=== PATIENT | male | born 1970 | race African-American/Black ===

== ENCOUNTER 2019-03-28 20:02 | Inpatient (IN) ==
[2019-03-28 22:19] LABS: Basophils % 0.3 % (0.0-0.8); Eosinophils % 0.4 % (0.00-10.9); Hematocrit 37.4 VOL% (42.0-52.0); Hemoglobin 12.2 GM/DL (14.0-18.0); Immature Granulocytes % 0.3 %; Immature Granulocytes Absolute 0.02 #; Lymphocytes % 12.4 % (21.2-54.2); Mean Corpuscular HGB Conc 32.6 GM/DL (32-36); Mean Corpuscular Volume 87.4 FL (87-102); Mean Platelet Volume 11.4 FL (9.6-12.0); Monocytes % 6.8 % (1.7-12.7); Neutrophils % 79.8 % (38.7-73.9); Platelet Count 217 T/CUMM (130-400); Red Blood Count 4.28 MC/CUMM (3.8-5.5)
[2019-03-28 22:23] LABS: Alanine Aminotransferase 51 U/L (16-61); Albumin 3.4 G/DL (3.4-5.0); Alkaline Phosphatase 84 U/L (45-117); Aspartate Amino Transferase 40 U/L (0-37); Blood Urea Nitrogen 11 MG/DL (7-18); Calcium 8.4 MG/DL (8.5-10.1); Glucose 168 MG/DL (74-106); Osmolality,Calculated 277.7 MOS/KG (273-304); Total Protein 6.5 G/DL (6.4-8.3)
[2019-03-28] MEDS ORDERED: SODIUM CHLORIDE 0.9% 1,000 ML IV SCH (23:45)
[2019-03-28] MEDS ORDERED: MORPHINE 4 MG/1 ML VIAL IV PRN (23:46)
[2019-03-28] MEDS ORDERED: BISACODYL 5 MG TABLET PO PRN (23:46)
[2019-03-28] MEDS ORDERED: ONDANSETRON 4 MG/2 ML VIAL IV PRN (23:46)
[2019-03-28] MEDS ORDERED: diphenhydrAMINE CAP 25 MG CAPSULE PO PRN (23:46)
[2019-03-28 23:54] LABS: Albumin 3.2 G/DL (3.4-5.0); Bilirubin,Direct 0.55 MG/DL (0.0-0.20); Bilirubin,Indirect 1.4 MG/DL (0.0-1.0); Bilirubin,Total 1.9 MG/DL (0.2-1.0); Total Protein 6.3 G/DL (6.4-8.3)
[2019-03-29 00:14] LABS: Barbiturates Screen,Urine Negative (Negative); Benzodiazepines Screen,Urine Negative (Negative); Cannabinoid Screen,Urine Positive (Negative); Opiate Screen,Urine Negative (Negative); Phencyclidine Screen,Urine Negative (Negative)
[2019-03-29 00:23] LABS: Risk Ratio 1.58; VLDL CHOLESTEROL 22.6 MG/DL
[2019-03-29 00:39] LABS: Hepatitis B Core IgM Quant 0.23 Index; Hepatitis B Surface Ag Quant 0.11 Index; Hepatitis B Surface Ag Result Negative (Negative); Hepatitis C Virus Ab Quant 0.12 Index; Hepatitis C Virus Ab Result Negative (Negative)
[2019-03-29] MEDS: FUROSEMIDE 20 MG/2 ML VIAL IV SCH ×3 (02:57→17:02)
[2019-03-29] MEDS: LORazepam 2 MG/1 ML VIAL IV PRN (02:57)
[2019-03-29] MEDS: hydrALAZINE 20 MG/1 ML VIAL IV PRN ×2 (02:58→11:28)
[2019-03-29] MEDS: NICOTINE 21 MG/24 HR PATCH TRANSDERM PRN (02:58)
[2019-03-29 04:05] LABS: Hematocrit 33.3 VOL% (42.0-52.0)
[2019-03-29 07:18] LABS: Hematocrit 33.9 VOL% (42.0-52.0); Hemoglobin 11.1 GM/DL (14.0-18.0)
[2019-03-29 07:37] LABS: Troponin I 0.077 NG/ML (0.00-0.045)
[2019-03-29] MEDS ORDERED: ALBUTEROL/IPRATROPIUM 3 ML NEB RESP TX PRN (08:41)
[2019-03-29] MEDS ORDERED: amLODIPine 5 MG TABLET PO SCH (09:00)
[2019-03-29] MEDS: LEVOFLOXACIN INJ 750 MG in PREMIX 1 EACH IV SCH (10:15)
[2019-03-29] MEDS ORDERED: ONDANSETRON 4 MG/2 ML VIAL IV ONE (10:33)
[2019-03-29 11:08] LABS: Hemoglobin 12.7 GM/DL (14.0-18.0)
[2019-03-29] MEDS ORDERED: DEXTROSE 50% 25 GM/50 ML SYRINGE IV PRN (11:46)
[2019-03-29] MEDS ORDERED: GLUCAGON 1 MG VIAL IM PRN ×2 (11:46→12:19)
[2019-03-29] MEDS ORDERED: DEXTROSE 50% 25 GM/50 ML VIAL IV PRN (12:19)
[2019-03-29] MEDS: cefTRIAXone 1,000 MG in SYRINGE 1 EACH IV SCH (12:30)
[2019-03-29 12:31] LABS: HIV Antigen/Antibody Result Nonreactive (Nonreactive)
[2019-03-29] MEDS: methylPREDNISolone SOD SUC 40 MG/1 ML VIAL IV SCH (12:31)
[2019-03-29 16:09] LABS: Hematocrit 38.4 VOL% (42.0-52.0); Hemoglobin 12.6 GM/DL (14.0-18.0)
[2019-03-29 16:29] LABS: Troponin I 0.073 NG/ML (0.00-0.045)
[2019-03-29] MEDS: INSULIN LISPRO 100 UNIT/ML SUBCUT SCH ×2 (17:51→21:43)
[2019-03-29 20:06] LABS: Hematocrit 40.5 VOL% (42.0-52.0); Hemoglobin 13.5 GM/DL (14.0-18.0)
[2019-03-29 20:38] LABS: Troponin I 0.055 NG/ML (0.00-0.045)
[2019-03-29] MEDS: LISINOPRIL 5 MG TABLET PO SCH (21:41)
[2019-03-29] MEDS: CARVEDILOL 3.125 MG TABLET PO SCH (21:42)
[2019-03-30] MEDS: NICOTINE 21 MG/24 HR PATCH TRANSDERM PRN (01:07)
[2019-03-30] MEDS: methylPREDNISolone SOD SUC 40 MG/1 ML VIAL IV SCH ×2 (01:27→14:27)
[2019-03-30] MEDS ORDERED: LORazepam 2 MG/1 ML VIAL ONE ×2 (03:44→20:47)
[2019-03-30] MEDS: LORazepam 2 MG/1 ML VIAL IV PRN ×2 (03:53→20:57)
[2019-03-30 05:30] LABS: Basophils % 0.2 % (0.0-0.8); Hematocrit 38.7 VOL% (42.0-52.0); Hemoglobin 12.7 GM/DL (14.0-18.0); Immature Granulocytes % 0.4 %; Immature Granulocytes Absolute 0.03 #; Lymphocytes # 0.5 10*3/uL (1.4-4.0); Lymphocytes % 6.1 % (21.2-54.2); Mean Corpuscular HGB Conc 32.8 GM/DL (32-36); Mean Platelet Volume 11.4 FL (9.6-12.0); Monocytes % 2.4 % (1.7-12.7); Neutrophils % 90.9 % (38.7-73.9); Platelet Count 202 T/CUMM (130-400); Red Blood Count 4.45 MC/CUMM (3.8-5.5); Red Cell Distribution Width 12.9 % (9.3-17.3); White Blood Count 8.4 T/CUMM (4-12)
[2019-03-30 05:59] LABS: Calcium 8.3 MG/DL (8.5-10.1); Osmolality,Calculated 277.1 MOS/KG (273-304)
[2019-03-30 06:05] LABS: Lymphocytes 3 % (20-55); Segmented Neutrophils 93 % (50-85); Total Cells Counted 100
[2019-03-30 06:06] LABS: Microcytosis 1+
[2019-03-30 06:07] LABS: Ovalocytes Slight; Platelet Estimate Normal
[2019-03-30 06:20] LABS: % Iron Saturation 7.1 % (18-50); Ferritin 109.2 ng/ml (26-388)
[2019-03-30] MEDS ORDERED: FUROSEMIDE 40 MG/4 ML VIAL IV ONE (07:01)
[2019-03-30] MEDS ORDERED: MAGNESIUM SULF RIDER 4 GM in PREMIX 1 EACH IV PRN (09:16)
[2019-03-30] MEDS ORDERED: MAGNESIUM SULF RIDER 2 GM in PREMIX 1 EACH IV PRN (09:16)
[2019-03-30] MEDS: INSULIN LISPRO 100 UNIT/ML SUBCUT SCH ×4 (09:21→20:56)
[2019-03-30] MEDS: LISINOPRIL 5 MG TABLET PO SCH ×2 (09:22→20:57)
[2019-03-30] MEDS: CARVEDILOL 3.125 MG TABLET PO SCH ×2 (09:22→17:13)
[2019-03-30] MEDS: LEVOFLOXACIN INJ 750 MG in PREMIX 1 EACH IV SCH (09:22)
[2019-03-30 11:21] LABS: Apearance,Urine CLEAR (Clear); Bilirubin,Urine Negative (Negative); Blood, Urine Negative (Negative); Glucose,Urine (UA) >=500 mg/dL (Negative); Ketones,Urine 5 mg/dL (Negative); Nitrite,Urine Negative (Negative); Protein,Urine Negative; RBC,Urine 1 /HPF (0-4); Urine Color Straw (Yellow); Urine Specific Gravity 1.007 (1.001-1.035); Urine Urobilinogen < 2.0 EU/DL (0.2-1.0); WBC,Urine <1 /HPF (0-6)
[2019-03-30 12:13] LABS: Albumin 2.6 G/DL (3.4-5.0); Bilirubin,Direct 0.49 MG/DL (0.0-0.20); Bilirubin,Indirect 0.9 MG/DL (0.0-1.0); Bilirubin,Total 1.4 MG/DL (0.2-1.0); Total Protein 5.9 G/DL (6.4-8.3)
[2019-03-30] MEDS ORDERED: cefTRIAXone 1,000 MG in SODIUM CHLORIDE 0.9% 100 ML IV SCH (13:00)
[2019-03-30] MEDS: ASPIRIN EC 81 MG TABLET PO SCH (14:27)
[2019-03-30] MEDS: cefTRIAXone 1,000 MG in SYRINGE 1 EACH IV SCH (15:06)
[2019-03-31] MEDS: methylPREDNISolone SOD SUC 40 MG/1 ML VIAL IV SCH ×3 (00:51→21:28)
[2019-03-31] MEDS: NICOTINE 21 MG/24 HR PATCH TRANSDERM PRN (00:51)
[2019-03-31] MEDS: NIFEdipine 10 MG CAPSULE PO PRN ×3 (05:20→16:23)
[2019-03-31 05:53] LABS: Hemoglobin 13.1 GM/DL (14.0-18.0); Immature Granulocytes % 0.3 %; Immature Granulocytes Absolute 0.03 #; Lymphocytes # 0.7 10*3/uL (1.4-4.0); Lymphocytes % 6.7 % (21.2-54.2); Mean Corpuscular HGB Conc 32.8 GM/DL (32-36); Mean Corpuscular Volume 86.8 FL (87-102); Mean Platelet Volume 11.3 FL (9.6-12.0); Monocytes % 2.7 % (1.7-12.7); Neutrophils % 90.3 % (38.7-73.9); Platelet Count 233 T/CUMM (130-400); Red Blood Count 4.61 MC/CUMM (3.8-5.5); Red Cell Distribution Width 13.1 % (9.3-17.3); White Blood Count 10.8 T/CUMM (4-12)
[2019-03-31 06:19] LABS: Calcium 8.3 MG/DL (8.5-10.1); Osmolality,Calculated 292.7 MOS/KG (273-304)
[2019-03-31] MEDS ORDERED: hydrALAZINE 20 MG/1 ML VIAL ONE (06:49)
[2019-03-31] MEDS ORDERED: INSULIN LISPRO 100 UNIT/ML ONE (08:19)
[2019-03-31] MEDS: INSULIN LISPRO 100 UNIT/ML SUBCUT SCH ×4 (08:23→21:29)
[2019-03-31] MEDS: LISINOPRIL 5 MG TABLET PO SCH ×2 (08:24→21:29)
[2019-03-31] MEDS: LEVOFLOXACIN INJ 750 MG in PREMIX 1 EACH IV SCH (08:24)
[2019-03-31] MEDS: glipiZIDE 10 MG TABLET PO SCH ×2 (08:24→16:13)
[2019-03-31] MEDS: ASPIRIN EC 81 MG TABLET PO SCH (08:24)
[2019-03-31] MEDS: CARVEDILOL 3.125 MG TABLET PO SCH (08:24)
[2019-03-31 09:00] LABS: Albumin 2.8 G/DL (3.4-5.0); Bilirubin,Direct 0.26 MG/DL (0.0-0.20); Bilirubin,Indirect 0.5 MG/DL (0.0-1.0); Bilirubin,Total 0.8 MG/DL (0.2-1.0); Total Protein 6.3 G/DL (6.4-8.3)
[2019-03-31] MEDS: cefTRIAXone 1,000 MG in SYRINGE 1 EACH IV SCH (11:35)
[2019-03-31] MEDS ORDERED: LORazepam 2 MG/1 ML VIAL ONE ×3 (13:14→21:13)
[2019-03-31] MEDS: LORazepam 2 MG/1 ML VIAL IV PRN ×3 (13:20→21:30)
[2019-03-31] MEDS: CARVEDILOL 6.25 MG TABLET PO SCH ×2 (14:00→16:13)
[2019-04-01] MEDS: NIFEdipine 10 MG CAPSULE PO PRN ×2 (04:24→08:06)
[2019-04-01] MEDS: LORazepam 2 MG/1 ML VIAL IV PRN (04:25)
[2019-04-01 05:41] LABS: Calcium 8.3 MG/DL (8.5-10.1)
[2019-04-01 05:48] LABS: Albumin 2.6 G/DL (3.4-5.0); Bilirubin,Direct 0.14 MG/DL (0.0-0.20); Bilirubin,Indirect 0.9 MG/DL (0.0-1.0); Total Protein 5.6 G/DL (6.4-8.3)
[2019-04-01] MEDS: methylPREDNISolone SOD SUC 40 MG/1 ML VIAL IV SCH (08:05)
[2019-04-01] MEDS: INSULIN LISPRO 100 UNIT/ML SUBCUT SCH ×4 (08:05→21:31)
[2019-04-01] MEDS: glipiZIDE 10 MG TABLET PO SCH ×2 (08:06→17:04)
[2019-04-01] MEDS ORDERED: LORazepam 1 MG TABLET PO PRN (08:06)
[2019-04-01] MEDS: ASPIRIN EC 81 MG TABLET PO SCH (08:06)
[2019-04-01] MEDS: CARVEDILOL 6.25 MG TABLET PO SCH (08:06)
[2019-04-01] MEDS: LISINOPRIL 5 MG TABLET PO SCH (08:06)
[2019-04-01] MEDS: LEVOFLOXACIN INJ 750 MG in PREMIX 1 EACH IV SCH (08:07)
[2019-04-01] MEDS ORDERED: LEVOFLOXACIN 750 MG TABLET PO SCH (08:30)
[2019-04-01] MEDS ORDERED: predniSONE 20 MG TABLET PO SCH (09:00)
[2019-04-01] MEDS: predniSONE 10 MG TABLET PO SCH (10:40)
[2019-04-01] MEDS: cefTRIAXone 1,000 MG in SYRINGE 1 EACH IV SCH (11:02)
[2019-04-01] MEDS: LISINOPRIL 20 MG TABLET PO SCH (11:02)
[2019-04-01] MEDS: CARVEDILOL 12.5 MG TABLET PO SCH (17:04)
[2019-04-02] MEDS: CARVEDILOL 12.5 MG TABLET PO SCH (08:58)
[2019-04-02] MEDS: INSULIN LISPRO 100 UNIT/ML SUBCUT SCH ×2 (08:59→15:40)
[2019-04-02] MEDS: predniSONE 10 MG TABLET PO SCH (08:59)
[2019-04-02] MEDS: glipiZIDE 10 MG TABLET PO SCH (08:59)
[2019-04-02] MEDS: LISINOPRIL 20 MG TABLET PO SCH (08:59)
[2019-04-02] MEDS: ASPIRIN EC 81 MG TABLET PO SCH (08:59)
[2019-04-02 12:08] VITALS: BP 142/108
== END 2019-04-02 14:30 | disposition home or self-care (01) | DRG 292 ==
LOC: N.ED 20:02 → N.EDINP 23:53 → SUATTDRO 23:53 → N.2E 03-29 00:15 → N.ICU 03-29 00:19 → N.2E 04-01 11:27
PROVIDERS: ADMIT Internal Medicine; ATTEND Internal Medicine

== ENCOUNTER 2019-09-12 12:24 | Inpatient (IN) ==
[2019-09-12 13:42] LABS: Basophils % 0.2 % (0.0-0.8); Eosinophils % 0.4 % (0.00-10.9); Hematocrit 36.7 VOL% (42.0-52.0); Hemoglobin 11.9 GM/DL (14.0-18.0); Immature Granulocytes % 0.4 %; Immature Granulocytes Absolute 0.04 #; Lymphocytes % 10.8 % (21.2-54.2); Mean Corpuscular HGB Conc 32.4 GM/DL (32-36); Mean Corpuscular Volume 84.2 FL (87-102); Mean Platelet Volume 11.8 FL (9.6-12.0); Monocytes % 6.8 % (1.7-12.7); Neutrophils % 81.4 % (38.7-73.9); Platelet Count 296 T/CUMM (130-400); Red Blood Count 4.36 MC/CUMM (3.8-5.5); Red Cell Distribution Width 16.1 % (9.3-17.3); White Blood Count 9.2 T/CUMM (4-12)
[2019-09-12 14:00] LABS: Alanine Aminotransferase 32 U/L (16-61); Albumin 2.5 G/DL (3.4-5.0); Alkaline Phosphatase 121 U/L (45-117); Aspartate Amino Transferase 32 U/L (0-37); Blood Urea Nitrogen 15 MG/DL (7-18); Calcium 9.1 MG/DL (8.5-10.1); Estimated Glom Filtration Rate 68 ML/MIN; Glucose 331 MG/DL (74-106); Total Protein 7.4 G/DL (6.4-8.3)
[2019-09-12] MEDS ORDERED: INSULIN REGULAR 100 UNIT/ML IV ONE (15:18)
[2019-09-12] MEDS ORDERED: INSULIN REGULAR 100 UNIT/ML ONE (15:22)
[2019-09-12] MEDS ORDERED: SODIUM CHLORIDE 0.9% 1,000 ML IV STA (15:26)
[2019-09-12] MEDS ORDERED: GLUCAGON 1 MG VIAL IM PRN (15:29)
[2019-09-12] MEDS ORDERED: DEXTROSE 10% 25 GM/250 ML BAG IV PRN (15:29)
[2019-09-12] MEDS ORDERED: ONDANSETRON 4 MG/2 ML VIAL IV PRN (15:29)
[2019-09-12] MEDS ORDERED: VANCOMYCIN 1,000 MG VIAL ONE (16:10)
[2019-09-12] MEDS ORDERED: MORPHINE 4 MG/1 ML VIAL IV PRN (16:20)
[2019-09-12] MEDS ORDERED: LORazepam 2 MG/1 ML VIAL IV PRN (16:20)
[2019-09-12] MEDS ORDERED: VANCOMYCIN INJ 1,000 MG in SODIUM CHLORIDE 0.9% 250 ML IV SCH (17:00)
[2019-09-12] MEDS ORDERED: CLINDAMYCIN INJ 900 MG in PREMIX 1 EACH IV ONE ×2 (18:01→18:30)
[2019-09-12] MEDS: SODIUM CHLORIDE 0.9% 1,000 ML IV SCH ×2 (18:42→23:46)
[2019-09-12] MEDS: GABAPENTIN 300 MG CAPSULE PO SCH (20:51)
[2019-09-12] MEDS: INSULIN REGULAR 100 UNIT/ML SUBCUT SCH (20:53)
[2019-09-12] MEDS ORDERED: SODIUM CHLORIDE 0.9% 1,000 ML IV ONE (21:00)
[2019-09-12] MEDS ORDERED: ENOXAPARIN 40 MG/0.4 ML SYRINGE SUBCUT SCH (21:00)
[2019-09-13] MEDS: SODIUM CHLORIDE 0.9% 1,000 ML IV SCH ×3 (02:36→23:38)
[2019-09-13 06:02] LABS: Basophils % 0.3 % (0.0-0.8); Eosinophils # 0.1 10*3/uL (0.0-0.87); Eosinophils % 0.8 % (0.00-10.9); Hematocrit 35.2 VOL% (42.0-52.0); Hemoglobin 11.2 GM/DL (14.0-18.0); Immature Granulocytes % 0.3 %; Immature Granulocytes Absolute 0.02 #; Lymphocytes # 1.4 10*3/uL (1.4-4.0); Lymphocytes % 20.5 % (21.2-54.2); Mean Corpuscular HGB Conc 31.8 GM/DL (32-36); Mean Corpuscular Volume 86.7 FL (87-102); Mean Platelet Volume 11.6 FL (9.6-12.0); Neutrophils % 68.1 % (38.7-73.9); Platelet Count 284 T/CUMM (130-400); Red Blood Count 4.06 MC/CUMM (3.8-5.5); Red Cell Distribution Width 16.4 % (9.3-17.3); White Blood Count 6.6 T/CUMM (4-12)
[2019-09-13] MEDS ORDERED: LIDOCAINE 1% 20 ML VIAL ONE (06:22)
[2019-09-13] MEDS ORDERED: CLINDAMYCIN INJ 900 MG in PREMIX 1 EACH IV ONE (06:30)
[2019-09-13 06:31] LABS: Albumin 2.2 G/DL (3.4-5.0); Bilirubin,Total 1.7 MG/DL (0.2-1.0); Calcium 8.1 MG/DL (8.5-10.1); Osmolality,Calculated 279.5 MOS/KG (273-304); Total Protein 6.7 G/DL (6.4-8.3)
[2019-09-13] MEDS ORDERED: CLINDAMYCIN INJ 50 ML IV ONE (07:28)
[2019-09-13] MEDS ORDERED: MIDAZOLAM 2 MG/2 ML VIAL ONE (07:50)
[2019-09-13] MEDS ORDERED: ONDANSETRON 4 MG/2 ML VIAL ONE (07:50)
[2019-09-13] MEDS ORDERED: fentaNYL 100 MCG/2 ML VIAL ONE (07:50)
[2019-09-13] MEDS: INSULIN REGULAR 100 UNIT/ML SUBCUT SCH ×4 (09:24→21:06)
[2019-09-13] MEDS: PANTOPRAZOLE 40 MG TABLET PO SCH (09:25)
[2019-09-13] MEDS: FOLIC ACID 1 MG TABLET PO SCH (09:25)
[2019-09-13] MEDS: GABAPENTIN 300 MG CAPSULE PO SCH ×3 (09:25→21:06)
[2019-09-13] MEDS: MULTIVITAMIN (CENTRUM) TABLET PO SCH (09:25)
[2019-09-13] MEDS: THIAMINE 100 MG TABLET PO SCH (09:25)
[2019-09-13] MEDS: VANCOMYCIN INJ 1,000 MG in SODIUM CHLORIDE 0.9% 250 ML IV SCH ×2 (09:32→21:04)
[2019-09-13] MEDS ORDERED: NICOTINE 14 MG/24 HR PATCH TRANSDERM PRN (18:18)
[2019-09-13] MEDS: LACTOBACILLUS ACIDOPHILUS/BULGARICUS CHEW TABLET PO SCH (21:11)
[2019-09-14 04:44] LABS: Basophils % 0.4 % (0.0-0.8); Eosinophils # 0.1 10*3/uL (0.0-0.87); Eosinophils % 1.4 % (0.00-10.9); Hematocrit 31.7 VOL% (42.0-52.0); Hemoglobin 9.9 GM/DL (14.0-18.0); Immature Granulocytes % 0.4 %; Immature Granulocytes Absolute 0.02 #; Lymphocytes # 1.1 10*3/uL (1.4-4.0); Lymphocytes % 22.8 % (21.2-54.2); Mean Corpuscular HGB Conc 31.2 GM/DL (32-36); Mean Corpuscular Volume 87.6 FL (87-102); Mean Platelet Volume 11.9 FL (9.6-12.0); Monocytes % 9.2 % (1.7-12.7); Neutrophils % 65.8 % (38.7-73.9); Platelet Count 275 T/CUMM (130-400); Red Blood Count 3.62 MC/CUMM (3.8-5.5); Red Cell Distribution Width 16.4 % (9.3-17.3)
[2019-09-14 05:12] LABS: Osmolality,Calculated 288.4 MOS/KG (273-304); Thyroid Stimulating Hormone 1.04 uIU/ml (0.358-3.74)
[2019-09-14] MEDS: GABAPENTIN 300 MG CAPSULE PO SCH ×3 (09:54→21:20)
[2019-09-14] MEDS: FOLIC ACID 1 MG TABLET PO SCH (09:54)
[2019-09-14] MEDS: THIAMINE 100 MG TABLET PO SCH (09:54)
[2019-09-14] MEDS: MULTIVITAMIN (CENTRUM) TABLET PO SCH (09:54)
[2019-09-14] MEDS: PANTOPRAZOLE 40 MG TABLET PO SCH (09:54)
[2019-09-14] MEDS: INSULIN REGULAR 100 UNIT/ML SUBCUT SCH ×4 (09:55→21:21)
[2019-09-14] MEDS: VANCOMYCIN INJ 1,000 MG in SODIUM CHLORIDE 0.9% 250 ML IV SCH (09:56)
[2019-09-14] MEDS: SODIUM CHLORIDE 0.9% 1,000 ML IV SCH (11:19)
[2019-09-14] MEDS: INSULIN GLARGINE 100 UNIT/ML SUBCUT SCH (11:40)
[2019-09-14] MEDS: AMOXICILLIN/CLAV 875 MG TABLET PO SCH ×2 (11:43→21:20)
[2019-09-14] MEDS: LACTOBACILLUS ACIDOPHILUS/BULGARICUS CHEW TABLET PO SCH ×2 (12:02→21:20)
[2019-09-15] MEDS: AMOXICILLIN/CLAV 875 MG TABLET PO SCH (08:45)
[2019-09-15] MEDS: MULTIVITAMIN (CENTRUM) TABLET PO SCH (08:45)
[2019-09-15] MEDS: FOLIC ACID 1 MG TABLET PO SCH (08:45)
[2019-09-15] MEDS: PANTOPRAZOLE 40 MG TABLET PO SCH (08:45)
[2019-09-15] MEDS: THIAMINE 100 MG TABLET PO SCH (08:46)
[2019-09-15] MEDS: INSULIN REGULAR 100 UNIT/ML SUBCUT SCH ×2 (08:55→13:32)
[2019-09-15] MEDS: GABAPENTIN 300 MG CAPSULE PO SCH (08:55)
[2019-09-15] MEDS: INSULIN GLARGINE 100 UNIT/ML SUBCUT SCH (10:15)
[2019-09-15] MEDS: LACTOBACILLUS ACIDOPHILUS/BULGARICUS CHEW TABLET PO SCH (10:16)
[2019-09-15] MEDS ORDERED: amLODIPine 10 MG TABLET PO ONE (10:42)
[2019-09-15 13:45] VITALS: BP 145/85
== END 2019-09-15 15:20 | disposition home or self-care (01) | DRG 623 ==
LOC: N.ED 12:24 → SUATTDRO 15:29 → N.5E 15:29
PROVIDERS: ADMIT Internal Medicine; ATTEND Internal Medicine

== ENCOUNTER 2020-01-10 14:55 | Inpatient (IN) ==
[2020-01-10 15:33] LABS: Basophils % 0.5 % (0.0-0.8); Eosinophils % 0.3 % (0.00-10.9); Hematocrit 37.3 VOL% (42.0-52.0); Hemoglobin 11.4 GM/DL (14.0-18.0); Immature Granulocytes % 0.6 %; Immature Granulocytes Absolute 0.04 #; Lymphocytes # 1.5 10*3/uL (1.4-4.0); Lymphocytes % 22.8 % (21.2-54.2); Mean Corpuscular HGB Conc 30.6 GM/DL (32-36); Mean Corpuscular Volume 74.7 FL (87-102); Monocytes % 10.7 % (1.7-12.7); Neutrophils % 65.1 % (38.7-73.9); Platelet Count 198 T/CUMM (130-400); Red Blood Count 4.99 MC/CUMM (3.8-5.5); Red Cell Distribution Width 20.5 % (9.3-17.3); White Blood Count 6.6 T/CUMM (4-12)
[2020-01-10] MEDS ORDERED: ONDANSETRON 4 MG/2 ML VIAL IV STA (15:41)
[2020-01-10] MEDS ORDERED: PIPERACILLIN/TAZOBACTAM 3,375 MG in SODIUM CHLORIDE 0.9% 100 ML IV STA (15:41)
[2020-01-10] MEDS ORDERED: SODIUM CHLORIDE 0.9% 1,000 ML IV STA ×2 (15:41→16:21)
[2020-01-10] MEDS ORDERED: VANCOMYCIN 1,000 MG VIAL ONE (15:49)
[2020-01-10 15:54] LABS: Lymphocytes 21 % (20-55); Segmented Neutrophils 70 % (50-85); Total Cells Counted 100
[2020-01-10 15:55] LABS: Anisocytosis 1+; Hypochromasia 1+; Platelet Estimate Adequate
[2020-01-10] MEDS ORDERED: ceFAZolin 1,000 MG in SYRINGE 1 EACH IV ONE (15:55)
[2020-01-10 15:56] LABS: Elliptocytes Few; Polychromasia Few; Target Cells Few
[2020-01-10] MEDS ORDERED: fentaNYL 100 MCG/2 ML VIAL ONE (16:02)
[2020-01-10 16:07] LABS: Amylase 45 U/L (25-115); Troponin I 0.038 NG/ML (0.00-0.045)
[2020-01-10] MEDS: VANCOMYCIN INJ 1,000 MG in SODIUM CHLORIDE 0.9% 250 ML IV SCH ×2 (16:07→16:59)
[2020-01-10] MEDS ORDERED: fentaNYL 100 MCG/2 ML VIAL IV STA (16:07)
[2020-01-10] MEDS ORDERED: INSULIN REGULAR 100 UNIT/ML IV ONE (16:21)
[2020-01-10] MEDS ORDERED: CALCIUM CARBONATE CHEW 500 MG TABLET PO PRN (16:38)
[2020-01-10] MEDS ORDERED: LACTULOSE 20 GM/30 ML UDCUP PO PRN (16:38)
[2020-01-10] MEDS ORDERED: DOCUSATE SODIUM 100 MG CAPSULE PO PRN (16:38)
[2020-01-10] MEDS ORDERED: SIMETHICONE CHEW 125 MG TABLET PO PRN (16:38)
[2020-01-10] MEDS ORDERED: MORPHINE 4 MG/1 ML VIAL IV PRN (16:38)
[2020-01-10] MEDS ORDERED: BISACODYL 5 MG TABLET PO PRN (16:38)
[2020-01-10] MEDS ORDERED: hydrALAZINE 20 MG/1 ML VIAL IV PRN (16:38)
[2020-01-10] MEDS ORDERED: guaiFENesin/DM ER 600-30 MG TABLET PO PRN (16:38)
[2020-01-10] MEDS ORDERED: ALUMINUM/MAGNES/SIMETH MAX STR 30 ML UDCUP PO PRN (16:38)
[2020-01-10] MEDS ORDERED: NICOTINE 21 MG/24 HR PATCH TRANSDERM PRN (16:38)
[2020-01-10] MEDS ORDERED: ACETAMINOPHEN 325 MG TABLET PO PRN (16:38)
[2020-01-10] MEDS ORDERED: GLUCAGON 1 MG VIAL IM PRN (16:38)
[2020-01-10] MEDS ORDERED: ZALEPLON 5 MG CAPSULE PO PRN (16:38)
[2020-01-10] MEDS ORDERED: diphenhydrAMINE CAP 25 MG CAPSULE PO PRN (16:38)
[2020-01-10] MEDS ORDERED: DEXTROSE 10% 250 ML BAG IV PRN (16:38)
[2020-01-10] MEDS ORDERED: ONDANSETRON 4 MG/2 ML VIAL IV PRN (16:38)
[2020-01-10 16:39] LABS: Apearance,Urine CLEAR (Clear); Bilirubin,Urine Negative (Negative); Blood, Urine Moderate mg/dL (Negative); Glucose,Urine (UA) >=500 mg/dL (Negative); Ketones,Urine 5 mg/dL (Negative); Nitrite,Urine Negative (Negative); Protein,Urine 100 MG/DL; RBC,Urine 10 /HPF (0-4); Urine Color Straw (Yellow); Urine Specific Gravity 1.023 (1.001-1.035); Urine Urobilinogen < 2.0 EU/DL (0.2-1.0); WBC,Urine <1 /HPF (0-6)
[2020-01-10] MEDS ORDERED: INSULIN REGULAR 100 UNIT/ML SUBCUT STA (16:56)
[2020-01-10] MEDS ORDERED: SODIUM CHLORIDE 0.9% 1,000 ML IV SCH (17:00)
[2020-01-10] MEDS ORDERED: chlordiazePOXIDE 10 MG CAPSULE PO PRN (17:11)
[2020-01-10 17:23] LABS: Calcium 8.9 MG/DL (8.5-10.1); Osmolality,Calculated 288.8 MOS/KG (273-304)
[2020-01-10 17:50] LABS: Barbiturates Screen,Urine Negative (Negative); Benzodiazepines Screen,Urine Negative (Negative); Cannabinoid Screen,Urine Negative (Negative); Opiate Screen,Urine Negative (Negative); Phencyclidine Screen,Urine Negative (Negative)
[2020-01-10] MEDS: AMITRIPTYLINE 10 MG TABLET PO SCH ×2 (19:06→23:43)
[2020-01-10] MEDS: ISOSORBIDE DINITRATE 20 MG TABLET PO SCH (21:23)
[2020-01-10] MEDS: SACUBITRIL/VALSARTAN 49-51 MG TABLET PO SCH (21:23)
[2020-01-10] MEDS: THIAMINE 100 MG TABLET PO SCH (21:24)
[2020-01-10] MEDS: MAGNESIUM OXIDE 400 MG TABLET PO SCH (21:24)
[2020-01-10] MEDS: hydrALAZINE 25 MG TABLET PO SCH (21:24)
[2020-01-10] MEDS: FOLIC ACID 1 MG TABLET PO SCH (21:24)
[2020-01-10] MEDS: GABAPENTIN 300 MG CAPSULE PO SCH (21:24)
[2020-01-10] MEDS: INSULIN GLARGINE 100 UNIT/ML SUBCUT SCH (21:24)
[2020-01-10] MEDS: INSULIN REGULAR 100 UNIT/ML SUBCUT SCH (22:12)
[2020-01-10] MEDS: PIPERACILLIN/TAZOBACTAM 3,375 MG in SODIUM CHLORIDE 0.9% 100 ML IV SCH (23:39)
[2020-01-11] MEDS: VANCOMYCIN INJ 1,000 MG in SODIUM CHLORIDE 0.9% 250 ML IV SCH ×2 (04:15→19:51)
[2020-01-11] MEDS: AMITRIPTYLINE 10 MG TABLET PO SCH ×4 (05:29→23:17)
[2020-01-11 06:19] LABS: Basophils % 0.8 % (0.0-0.8); Eosinophils # 0.1 10*3/uL (0.0-0.87); Hematocrit 33.2 VOL% (42.0-52.0); Immature Granulocytes % 0.6 %; Immature Granulocytes Absolute 0.03 #; Lymphocytes # 1.6 10*3/uL (1.4-4.0); Lymphocytes % 32.4 % (21.2-54.2); Mean Corpuscular HGB Conc 30.1 GM/DL (32-36); Mean Corpuscular Volume 75.3 FL (87-102); Neutrophils % 54.2 % (38.7-73.9); Platelet Count 198 T/CUMM (130-400); Red Blood Count 4.41 MC/CUMM (3.8-5.5); Red Cell Distribution Width 20.3 % (9.3-17.3); White Blood Count 4.9 T/CUMM (4-12)
[2020-01-11] MEDS ORDERED: ceFAZolin 1,000 MG in SYRINGE 1 EACH IV ONE (06:30)
[2020-01-11 06:37] LABS: Hypochromasia 1+; Ovalocytes Slight; Platelet Estimate Adequate
[2020-01-11 06:40] LABS: Albumin 1.9 G/DL (3.4-5.0); Bilirubin,Total 1.2 MG/DL (0.2-1.0); Calcium 8.4 MG/DL (8.5-10.1); Osmolality,Calculated 279.1 MOS/KG (273-304); Total Protein 6.4 G/DL (6.4-8.3)
[2020-01-11] MEDS ORDERED: LIDOCAINE 1% 20 ML VIAL ONE (06:43)
[2020-01-11] MEDS ORDERED: BUPIVACAINE MPF 0.25% 30 ML VIAL ONE (06:43)
[2020-01-11] MEDS ORDERED: KETAMINE 500 MG/10 ML VIAL ONE (07:42)
[2020-01-11] MEDS ORDERED: fentaNYL 100 MCG/2 ML VIAL ONE (07:42)
[2020-01-11] MEDS ORDERED: MIDAZOLAM 2 MG/2 ML VIAL ONE (07:43)
[2020-01-11] MEDS ORDERED: LABETALOL 20 MG/4 ML SYRINGE IV ONE (08:04)
[2020-01-11] MEDS: MULTIVITAMIN (BEROCCA) TABLET PO SCH (09:53)
[2020-01-11] MEDS: MAGNESIUM OXIDE 400 MG TABLET PO SCH ×2 (09:53→20:58)
[2020-01-11] MEDS: THIAMINE 100 MG TABLET PO SCH ×2 (09:54→20:58)
[2020-01-11] MEDS: SACUBITRIL/VALSARTAN 49-51 MG TABLET PO SCH ×2 (09:54→20:59)
[2020-01-11] MEDS: ZINC SULFATE 220 MG CAPSULE PO SCH (09:54)
[2020-01-11] MEDS: GABAPENTIN 300 MG CAPSULE PO SCH ×3 (09:54→20:58)
[2020-01-11] MEDS: ISOSORBIDE DINITRATE 20 MG TABLET PO SCH ×3 (09:54→20:59)
[2020-01-11] MEDS: carvediloL 6.25 MG TABLET PO SCH ×2 (09:54→18:25)
[2020-01-11] MEDS: FUROSEMIDE 40 MG/4 ML VIAL IV SCH ×2 (09:56→18:25)
[2020-01-11] MEDS: hydrALAZINE 25 MG TABLET PO SCH ×3 (09:56→20:58)
[2020-01-11] MEDS: ASPIRIN EC 81 MG TABLET PO SCH (09:56)
[2020-01-11] MEDS: INSULIN REGULAR 100 UNIT/ML SUBCUT SCH ×4 (09:56→22:04)
[2020-01-11] MEDS: INSULIN GLARGINE 100 UNIT/ML SUBCUT SCH ×2 (09:57→22:28)
[2020-01-11] MEDS: PIPERACILLIN/TAZOBACTAM 3,375 MG in SODIUM CHLORIDE 0.9% 100 ML IV SCH ×2 (10:01→20:57)
[2020-01-11] MEDS: FOLIC ACID 1 MG TABLET PO SCH (22:04)
[2020-01-11] MEDS: DOCUSATE SODIUM 100 MG CAPSULE PO SCH (22:04)
[2020-01-12] MEDS: PIPERACILLIN/TAZOBACTAM 3,375 MG in SODIUM CHLORIDE 0.9% 100 ML IV SCH ×2 (03:17→12:41)
[2020-01-12] MEDS: AMITRIPTYLINE 10 MG TABLET PO SCH ×2 (05:57→12:41)
[2020-01-12 06:00] LABS: Basophils # 0.1 10*3/uL (0.0-0.2); Basophils % 0.9 % (0.0-0.8); Eosinophils # 0.1 10*3/uL (0.0-0.87); Hemoglobin 10.9 GM/DL (14.0-18.0); Immature Granulocytes % 0.3 %; Immature Granulocytes Absolute 0.02 #; Lymphocytes # 2.1 10*3/uL (1.4-4.0); Mean Corpuscular HGB Conc 30.3 GM/DL (32-36); Mean Corpuscular Volume 75.2 FL (87-102); Monocytes % 11.8 % (1.7-12.7); Platelet Count 221 T/CUMM (130-400); Red Blood Count 4.79 MC/CUMM (3.8-5.5); Red Cell Distribution Width 21.2 % (9.3-17.3); White Blood Count 5.9 T/CUMM (4-12)
[2020-01-12 06:16] LABS: Alanine Aminotransferase 17 U/L (16-61); Albumin 1.9 G/DL (3.4-5.0); Alkaline Phosphatase 123 U/L (45-117); Aspartate Amino Transferase 24 U/L (0-37); Bilirubin,Total < 0.39 MG/DL (0.2-1.0); Blood Urea Nitrogen 20 MG/DL (7-18); Calcium 8.4 MG/DL (8.5-10.1); Estimated Glom Filtration Rate 87 ML/MIN; Glucose 130 MG/DL (74-106); Osmolality,Calculated 270.4 MOS/KG (273-304); Total Protein 6.5 G/DL (6.4-8.3)
[2020-01-12 06:57] LABS: Eosinophils 1 % (0-10); Hypochromasia 1+; Lymphocytes 39 % (20-55); Platelet Estimate Adequate; Segmented Neutrophils 48 % (50-85); Total Cells Counted 100
[2020-01-12] MEDS: VANCOMYCIN INJ 1,000 MG in SODIUM CHLORIDE 0.9% 250 ML IV SCH (07:27)
[2020-01-12] MEDS: FUROSEMIDE 40 MG/4 ML VIAL IV SCH (08:18)
[2020-01-12] MEDS: carvediloL 6.25 MG TABLET PO SCH (08:19)
[2020-01-12] MEDS: THIAMINE 100 MG TABLET PO SCH (08:19)
[2020-01-12] MEDS: ISOSORBIDE DINITRATE 20 MG TABLET PO SCH (08:19)
[2020-01-12] MEDS: hydrALAZINE 25 MG TABLET PO SCH (08:19)
[2020-01-12] MEDS: MAGNESIUM OXIDE 400 MG TABLET PO SCH (08:19)
[2020-01-12] MEDS: ZINC SULFATE 220 MG CAPSULE PO SCH (08:19)
[2020-01-12] MEDS: DOCUSATE SODIUM 100 MG CAPSULE PO SCH (08:19)
[2020-01-12] MEDS: GABAPENTIN 300 MG CAPSULE PO SCH (08:20)
[2020-01-12] MEDS: ASPIRIN EC 81 MG TABLET PO SCH (08:20)
[2020-01-12] MEDS: SACUBITRIL/VALSARTAN 49-51 MG TABLET PO SCH (08:20)
[2020-01-12] MEDS: INSULIN REGULAR 100 UNIT/ML SUBCUT SCH ×2 (08:20→12:39)
[2020-01-12] MEDS: MULTIVITAMIN (BEROCCA) TABLET PO SCH (08:20)
[2020-01-12] MEDS ORDERED: POLYETHYLENE GLYCOL POWDER 17 GM PACK PO SCH (09:00)
[2020-01-12] MEDS: INSULIN GLARGINE 100 UNIT/ML SUBCUT SCH (09:57)
[2020-01-12] MEDS ORDERED: SODIUM HYPOCHLORITE 0.25% IRRIG 473 ML BOTTLE TOP SCH (10:00)
[2020-01-12 11:38] VITALS: BP 134/90
[2020-01-12] MEDS ORDERED: FUROSEMIDE 80 MG TABLET PO SCH (16:00)
== END 2020-01-12 13:57 | disposition home health service (06) | DRG 623 ==
LOC: EDUNIT# → EDBD → N.ED 14:55 → SUATTDRO 16:38 → N.EDINP 16:38 → N.3E 16:56
PROVIDERS: ADMIT Internal Medicine Nephrology; ATTEND Internal Medicine

== ENCOUNTER 2020-02-11 01:27 | Observation (INO) ==
[2020-02-11] MEDS ORDERED: INSULIN REGULAR 100 UNIT/ML IV STA ×2 (01:59→03:54)
[2020-02-11] MEDS ORDERED: FUROSEMIDE 100 MG/10 ML VIAL IV STA (01:59)
[2020-02-11] MEDS ORDERED: FUROSEMIDE 40 MG/4 ML VIAL IV STA (01:59)
[2020-02-11] MEDS ORDERED: methylPREDNISolone SOD SUC 125 MG/2 ML VIAL IV STA (01:59)
[2020-02-11] MEDS ORDERED: MORPHINE 4 MG/1 ML VIAL IV STA (01:59)
[2020-02-11] MEDS ORDERED: ALBUTEROL/IPRATROPIUM 3 ML NEB RESP TX STA (01:59)
[2020-02-11] MEDS ORDERED: ONDANSETRON 4 MG/2 ML VIAL IV STA (01:59)
[2020-02-11] MEDS ORDERED: NITROGLYCERIN 2% OINT 1 INCH/GM PACK TOP STA (01:59)
[2020-02-11 02:09] LABS: Basophils % 0.6 % (0.0-0.8); Eosinophils % 0.2 % (0.00-10.9); Hematocrit 35.1 VOL% (42.0-52.0); Hemoglobin 10.4 GM/DL (14.0-18.0); Immature Granulocytes % 0.4 %; Immature Granulocytes Absolute 0.02 #; Lymphocytes # 1.5 10*3/uL (1.4-4.0); Lymphocytes % 28.5 % (21.2-54.2); Mean Corpuscular HGB Conc 29.6 GM/DL (32-36); Mean Corpuscular Volume 76.8 FL (87-102); Mean Platelet Volume 10.5 FL (9.6-12.0); Monocytes % 5.9 % (1.7-12.7); Neutrophils % 64.4 % (38.7-73.9); Platelet Count 264 T/CUMM (130-400); Red Blood Count 4.57 MC/CUMM (3.8-5.5); Red Cell Distribution Width 20.3 % (9.3-17.3); White Blood Count 5.4 T/CUMM (4-12)
[2020-02-11 02:15] LABS: INR 0.9; PT Patient Result 9.6 SECS (9.6-12.2)
[2020-02-11] MEDS ORDERED: hydrALAZINE 20 MG/1 ML VIAL IV STA (02:15)
[2020-02-11 02:23] LABS: Alanine Aminotransferase 77 U/L (16-61); Albumin 2.1 G/DL (3.4-5.0); Alkaline Phosphatase 298 U/L (45-117); Amylase 94 U/L (25-115); Aspartate Amino Transferase 93 U/L (0-37); Bilirubin,Total < 0.39 MG/DL (0.2-1.0); Blood Urea Nitrogen 14 MG/DL (7-18); Calcium 8.4 MG/DL (8.5-10.1); Estimated Glom Filtration Rate 67 ML/MIN; Osmolality,Calculated 293.2 MOS/KG (273-304); Total Protein 6.5 G/DL (6.4-8.3)
[2020-02-11 02:24] LABS: Troponin I 0.078 NG/ML (0.00-0.045)
[2020-02-11 02:30] LABS: Glucose 781 MG/DL (74-106)
[2020-02-11] MEDS ORDERED: SODIUM CHLORIDE 0.9% 500 ML IV STA (02:32)
[2020-02-11 03:50] LABS: Barbiturates Screen,Urine Negative (Negative); Benzodiazepines Screen,Urine Negative (Negative); Cannabinoid Screen,Urine Negative (Negative); Opiate Screen,Urine Negative (Negative); Phencyclidine Screen,Urine Negative (Negative)
[2020-02-11 03:54] LABS: Apearance,Urine CLEAR (Clear); Bilirubin,Urine Negative (Negative); Blood, Urine Negative (Negative); Glucose,Urine (UA) >=500 mg/dL (Negative); Ketones,Urine Negative (Negative); Nitrite,Urine Negative (Negative); Protein,Urine 100 MG/DL; RBC,Urine 5 /HPF (0-4); Squamous Epithelial Cell,Urine Occasional /HPF (0-10); Urine Color Straw (Yellow); Urine Specific Gravity 1.026 (1.001-1.035); Urine Urobilinogen < 2.0 EU/DL (0.2-1.0); WBC,Urine <1 /HPF (0-6)
[2020-02-11] MEDS ORDERED: ACETAMINOPHEN 325 MG TABLET PO PRN (04:26)
[2020-02-11] MEDS ORDERED: hydrALAZINE 20 MG/1 ML VIAL IV PRN (04:26)
[2020-02-11] MEDS ORDERED: GLUCAGON 1 MG VIAL IM PRN (04:26)
[2020-02-11] MEDS ORDERED: DEXTROSE 50% 25 GM/50 ML SYRINGE IV PRN (04:26)
[2020-02-11] MEDS ORDERED: DOCUSATE SODIUM 100 MG CAPSULE PO PRN (04:26)
[2020-02-11] MEDS ORDERED: NICOTINE 21 MG/24 HR PATCH TRANSDERM PRN (04:26)
[2020-02-11] MEDS ORDERED: ONDANSETRON 4 MG/2 ML VIAL IV PRN (04:26)
[2020-02-11] MEDS: AMITRIPTYLINE 10 MG TABLET PO SCH ×3 (08:21→18:36)
[2020-02-11] MEDS: FUROSEMIDE 80 MG TABLET PO SCH ×2 (08:21→16:06)
[2020-02-11] MEDS: carvediloL 6.25 MG TABLET PO SCH ×2 (08:21→16:06)
[2020-02-11] MEDS: GABAPENTIN 300 MG CAPSULE PO SCH ×3 (08:21→21:44)
[2020-02-11] MEDS: ASPIRIN EC 81 MG TABLET PO SCH (08:21)
[2020-02-11] MEDS: hydrALAZINE 25 MG TABLET PO SCH ×3 (08:21→21:44)
[2020-02-11] MEDS: MAGNESIUM OXIDE 400 MG TABLET PO SCH ×2 (08:21→21:44)
[2020-02-11] MEDS: SACUBITRIL/VALSARTAN 49-51 MG TABLET PO SCH ×2 (08:21→21:43)
[2020-02-11] MEDS: INSULIN REGULAR 100 UNIT/ML SUBCUT SCH ×4 (08:22→21:43)
[2020-02-11] MEDS: INSULIN NPH/REGULAR 70/30 100 UNIT/ML SUBCUT SCH ×2 (08:23→16:06)
[2020-02-11] MEDS: ENOXAPARIN 40 MG/0.4 ML SYRINGE SUBCUT SCH (08:26)
[2020-02-12] MEDS: AMITRIPTYLINE 10 MG TABLET PO SCH ×3 (00:03→13:10)
[2020-02-12 06:04] LABS: Basophils % 0.2 % (0.0-0.8); Eosinophils % 0.3 % (0.00-10.9); Hematocrit 35.3 VOL% (42.0-52.0); Hemoglobin 10.9 GM/DL (14.0-18.0); Immature Granulocytes % 0.3 %; Immature Granulocytes Absolute 0.03 #; Lymphocytes # 2.5 10*3/uL (1.4-4.0); Lymphocytes % 26.8 % (21.2-54.2); Mean Corpuscular HGB Conc 30.9 GM/DL (32-36); Mean Corpuscular Volume 74.5 FL (87-102); Mean Platelet Volume 11.4 FL (9.6-12.0); Neutrophils % 67.4 % (38.7-73.9); Platelet Count 296 T/CUMM (130-400); Red Blood Count 4.74 MC/CUMM (3.8-5.5); Red Cell Distribution Width 19.7 % (9.3-17.3); White Blood Count 9.3 T/CUMM (4-12)
[2020-02-12 06:21] LABS: Albumin 1.7 G/DL (3.4-5.0); Bilirubin,Total 0.6 MG/DL (0.2-1.0); Calcium 8.2 MG/DL (8.5-10.1); Osmolality,Calculated 276.7 MOS/KG (273-304); Total Protein 5.5 G/DL (6.4-8.3)
[2020-02-12 06:26] LABS: Hypochromasia 1+; Platelet Estimate Adequate
[2020-02-12] MEDS: INSULIN NPH/REGULAR 70/30 100 UNIT/ML SUBCUT SCH (08:44)
[2020-02-12] MEDS: INSULIN REGULAR 100 UNIT/ML SUBCUT SCH ×2 (08:45→12:55)
[2020-02-12] MEDS: ASPIRIN EC 81 MG TABLET PO SCH (08:46)
[2020-02-12] MEDS: carvediloL 6.25 MG TABLET PO SCH (08:46)
[2020-02-12] MEDS: GABAPENTIN 300 MG CAPSULE PO SCH (08:46)
[2020-02-12] MEDS: MAGNESIUM OXIDE 400 MG TABLET PO SCH (08:46)
[2020-02-12] MEDS: FUROSEMIDE 80 MG TABLET PO SCH (08:46)
[2020-02-12] MEDS: ENOXAPARIN 40 MG/0.4 ML SYRINGE SUBCUT SCH (08:46)
[2020-02-12] MEDS: hydrALAZINE 25 MG TABLET PO SCH (08:47)
[2020-02-12 11:47] VITALS: BP 112/89
[2020-02-12] MEDS: SACUBITRIL/VALSARTAN 49-51 MG TABLET PO SCH (12:55)
== END 2020-02-12 14:45 | disposition home or self-care (01) ==
LOC: EDBD → EDUNIT# → N.ED 01:27 → N.EDINP 01:27 → SUATTDRO 03:36 → N.2E 03:56
PROVIDERS: ADMIT Family Medicine; ATTEND Internal Medicine

== ENCOUNTER 2020-03-05 23:53 | Observation (INO) ==
[2020-03-06 00:11] LABS: Basophils % 0.4 % (0.0-0.8); Eosinophils # 0.1 10*3/uL (0.0-0.87); Eosinophils % 1.3 % (0.00-10.9); Hematocrit 34.1 VOL% (42.0-52.0); Hemoglobin 10.1 GM/DL (14.0-18.0); Immature Granulocytes % 0.2 %; Immature Granulocytes Absolute 0.01 #; Lymphocytes # 1.7 10*3/uL (1.4-4.0); Lymphocytes % 32.5 % (21.2-54.2); Mean Corpuscular HGB Conc 29.6 GM/DL (32-36); Mean Corpuscular Volume 76.8 FL (87-102); Mean Platelet Volume 10.7 FL (9.6-12.0); NRBC # 0.02 10*3/uL; Neutrophils % 55.6 % (38.7-73.9); Platelet Count 167 T/CUMM (130-400); Red Blood Count 4.44 MC/CUMM (3.8-5.5); Red Cell Distribution Width 20.7 % (9.3-17.3); White Blood Count 5.3 T/CUMM (4-12)
[2020-03-06] MEDS ORDERED: ONDANSETRON 4 MG/2 ML VIAL IV ONE (00:15)
[2020-03-06] MEDS ORDERED: FUROSEMIDE 40 MG/4 ML VIAL IV STA (00:15)
[2020-03-06] MEDS ORDERED: MORPHINE 4 MG/1 ML VIAL IV STA (00:15)
[2020-03-06] MEDS ORDERED: ONDANSETRON 4 MG/2 ML VIAL ONE (00:16)
[2020-03-06] MEDS ORDERED: MORPHINE 4 MG/1 ML VIAL ONE (00:17)
[2020-03-06 00:32] LABS: Albumin 2.5 G/DL (3.4-5.0); Bilirubin,Total 0.6 MG/DL (0.2-1.0); Calcium 8.8 MG/DL (8.5-10.1); Osmolality,Calculated 282.1 MOS/KG (273-304)
[2020-03-06 01:22] LABS: INR 1.1; PT Patient Result 11.3 SECS (9.8-11.9)
[2020-03-06] MEDS ORDERED: hydrALAZINE 20 MG/1 ML VIAL IV STA (02:30)
[2020-03-06] MEDS ORDERED: ENOXAPARIN 80 MG/0.8 ML SYRINGE SUBCUT ONE (02:30)
[2020-03-06] MEDS ORDERED: hydrALAZINE 20 MG/1 ML VIAL ONE (02:30)
[2020-03-06] MEDS ORDERED: ENOXAPARIN 80 MG/0.8 ML SYRINGE SUBCUT STA (02:32)
[2020-03-06 02:50] LABS: Ferritin 36.3 ng/ml (26-388)
[2020-03-06] MEDS ORDERED: NICOTINE 21 MG/24 HR PATCH TRANSDERM PRN (03:37)
[2020-03-06] MEDS ORDERED: diphenhydrAMINE CAP 25 MG CAPSULE PO PRN (03:37)
[2020-03-06] MEDS ORDERED: ACETAMINOPHEN 325 MG TABLET PO PRN (03:37)
[2020-03-06] MEDS ORDERED: ONDANSETRON 4 MG/2 ML VIAL IV PRN (03:37)
[2020-03-06] MEDS ORDERED: MORPHINE 4 MG/1 ML VIAL IV PRN (03:37)
[2020-03-06] MEDS ORDERED: guaiFENesin/DM ER 600-30 MG TABLET PO PRN (03:37)
[2020-03-06] MEDS ORDERED: hydrALAZINE 20 MG/1 ML VIAL IV PRN (03:37)
[2020-03-06] MEDS ORDERED: ALUMINUM/MAGNES/SIMETH MAX STR 30 ML UDCUP PO PRN (03:37)
[2020-03-06] MEDS ORDERED: GLUCAGON 1 MG VIAL IM PRN (03:37)
[2020-03-06] MEDS ORDERED: DEXTROSE 10% 250 ML BAG IV PRN (03:45)
[2020-03-06 04:07] LABS: Risk Ratio 2.41
[2020-03-06] MEDS ORDERED: INSULIN REGULAR 100 UNIT/ML SUBCUT SCH (06:00)
[2020-03-06 07:48] LABS: Basophils % 0.6 % (0.0-0.8); Eosinophils # 0.1 10*3/uL (0.0-0.87); Eosinophils % 1.2 % (0.00-10.9); Hematocrit 32.2 VOL% (42.0-52.0); Hemoglobin 9.5 GM/DL (14.0-18.0); Immature Granulocytes % 0.4 %; Immature Granulocytes Absolute 0.02 #; Lymphocytes # 1.6 10*3/uL (1.4-4.0); Lymphocytes % 31.5 % (21.2-54.2); Mean Corpuscular HGB Conc 29.5 GM/DL (32-36); Monocytes % 11.3 % (1.7-12.7); NRBC # 0.02 10*3/uL; Platelet Count 229 T/CUMM (130-400); Red Blood Count 4.13 MC/CUMM (3.8-5.5); Red Cell Distribution Width 20.7 % (9.3-17.3); White Blood Count 5.2 T/CUMM (4-12)
[2020-03-06 08:21] LABS: Albumin 2.5 G/DL (3.4-5.0); Bilirubin,Total 0.7 MG/DL (0.2-1.0); Calcium 8.3 MG/DL (8.5-10.1); Total Protein 6.7 G/DL (6.4-8.3)
[2020-03-06] MEDS ORDERED: amLODIPine 5 MG TABLET PO SCH (09:00)
[2020-03-06] MEDS ORDERED: metOLazone 5 MG TABLET PO SCH (09:00)
[2020-03-06] MEDS: GABAPENTIN 300 MG CAPSULE PO SCH ×3 (09:37→21:20)
[2020-03-06] MEDS: SACUBITRIL/VALSARTAN 49-51 MG TABLET PO SCH ×2 (09:38→21:21)
[2020-03-06] MEDS: hydrALAZINE 25 MG TABLET PO SCH ×3 (09:38→21:20)
[2020-03-06] MEDS: ISOSORBIDE DINITRATE 20 MG TABLET PO SCH ×3 (09:38→21:20)
[2020-03-06] MEDS: MAGNESIUM OXIDE 400 MG TABLET PO SCH ×2 (09:38→21:20)
[2020-03-06] MEDS: carvediloL 6.25 MG TABLET PO SCH ×2 (09:38→18:26)
[2020-03-06] MEDS: INSULIN REGULAR 100 UNIT/ML SUBCUT SCH ×4 (09:41→21:21)
[2020-03-06] MEDS: INSULIN GLARGINE 100 UNIT/ML SUBCUT SCH ×2 (09:41→22:49)
[2020-03-06] MEDS: FUROSEMIDE 40 MG/4 ML VIAL IV SCH ×2 (09:42→18:27)
[2020-03-06] MEDS: HEPARIN 5,000 UNIT/1 ML VIAL SUBCUT SCH ×2 (09:42→18:26)
[2020-03-06 12:46] LABS: Barbiturates Screen,Urine Negative (Negative); Benzodiazepines Screen,Urine Negative (Negative); Cannabinoid Screen,Urine Negative (Negative); Opiate Screen,Urine Negative (Negative); Phencyclidine Screen,Urine Negative (Negative)
[2020-03-06] MEDS ORDERED: INSULIN NPH/REGULAR 70/30 100 UNIT/ML SUBCUT SCH (21:00)
[2020-03-06] MEDS ORDERED: metFORMIN 500 MG TABLET PO SCH (21:00)
[2020-03-06] MEDS ORDERED: AMITRIPTYLINE 10 MG TABLET PO SCH (21:00)
[2020-03-06] MEDS: THIAMINE 100 MG TABLET PO SCH (21:20)
[2020-03-07] MEDS: HEPARIN 5,000 UNIT/1 ML VIAL SUBCUT SCH ×2 (00:44→09:34)
[2020-03-07 05:43] LABS: Basophils % 0.5 % (0.0-0.8); Eosinophils # 0.1 10*3/uL (0.0-0.87); Eosinophils % 1.6 % (0.00-10.9); Hematocrit 30.3 VOL% (42.0-52.0); Hemoglobin 9.2 GM/DL (14.0-18.0); Immature Granulocytes % 0.2 %; Immature Granulocytes Absolute 0.01 #; Lymphocytes # 1.3 10*3/uL (1.4-4.0); Lymphocytes % 31.5 % (21.2-54.2); Mean Corpuscular HGB Conc 30.4 GM/DL (32-36); Mean Corpuscular Volume 75.4 FL (87-102); Mean Platelet Volume 10.8 FL (9.6-12.0); Monocytes % 10.3 % (1.7-12.7); NRBC # 0.02 10*3/uL; Neutrophils % 55.9 % (38.7-73.9); Platelet Count 218 T/CUMM (130-400); Red Blood Count 4.02 MC/CUMM (3.8-5.5); Red Cell Distribution Width 20.3 % (9.3-17.3); White Blood Count 4.3 T/CUMM (4-12)
[2020-03-07 06:12] LABS: Albumin 1.9 G/DL (3.4-5.0); Bilirubin,Total 0.9 MG/DL (0.2-1.0); Total Protein 5.6 G/DL (6.4-8.3)
[2020-03-07] MEDS ORDERED: MULTIVITAMIN (BEROCCA) TABLET PO SCH (09:00)
[2020-03-07 09:17] VITALS: BP 98/45
[2020-03-07] MEDS: SACUBITRIL/VALSARTAN 49-51 MG TABLET PO SCH (09:32)
[2020-03-07] MEDS: ISOSORBIDE DINITRATE 20 MG TABLET PO SCH (09:32)
[2020-03-07] MEDS: GABAPENTIN 300 MG CAPSULE PO SCH (09:32)
[2020-03-07] MEDS: THIAMINE 100 MG TABLET PO SCH (09:33)
[2020-03-07] MEDS: carvediloL 6.25 MG TABLET PO SCH (09:33)
[2020-03-07] MEDS: hydrALAZINE 25 MG TABLET PO SCH (09:34)
[2020-03-07] MEDS: FUROSEMIDE 40 MG/4 ML VIAL IV SCH (09:34)
[2020-03-07] MEDS: MAGNESIUM OXIDE 400 MG TABLET PO SCH (09:38)
[2020-03-07] MEDS: INSULIN REGULAR 100 UNIT/ML SUBCUT SCH (10:32)
[2020-03-07] MEDS: INSULIN GLARGINE 100 UNIT/ML SUBCUT SCH (10:32)
== END 2020-03-07 12:24 | disposition home or self-care (01) ==
LOC: N.ED 23:53 → N.EDINP 23:53 → SUATTDRO 03-06 03:37 → N.TELES 03-06 04:52
PROVIDERS: ADMIT Emergency Medicine; ATTEND Internal Medicine

== ENCOUNTER 2020-07-25 16:20 | Inpatient (IN) ==
[2020-07-25 16:58] LABS: Basophils % 0.2 % (0.0-0.8); Eosinophils % 0.5 % (0.00-10.9); Hematocrit 36.3 VOL% (42.0-52.0); Hemoglobin 10.7 GM/DL (14.0-18.0); Immature Granulocytes % 0.2 %; Immature Granulocytes Absolute 0.01 #; Lymphocytes # 0.7 10*3/uL (1.4-4.0); Lymphocytes % 18.2 % (21.2-54.2); Mean Corpuscular HGB Conc 29.5 GM/DL (32-36); Mean Corpuscular Volume 69.5 FL (87-102); Monocytes % 9.4 % (1.7-12.7); Neutrophils % 71.5 % (38.7-73.9); Platelet Count 276 T/CUMM (130-400); Red Blood Count 5.22 MC/CUMM (3.8-5.5); Red Cell Distribution Width 23.6 % (9.3-17.3); White Blood Count 4.1 T/CUMM (4-12)
[2020-07-25 17:24] LABS: Albumin 1.8 G/DL (3.4-5.0); Bilirubin,Total 1.4 MG/DL (0.2-1.0); Calcium 8.2 MG/DL (8.5-10.1); Osmolality,Calculated 287.1 MOS/KG (273-304); Total Protein 6.5 G/DL (6.4-8.3)
[2020-07-25 18:40] LABS: Apearance,Urine CLEAR (Clear); Bacteria,Urine Occasional /HPF (Few); Bilirubin,Urine Negative (Negative); Blood, Urine Small mg/dL (Negative); Glucose,Urine (UA) >=500 mg/dL (Negative); Hyaline Casts,Urine 5 /LPF (0-3); Ketones,Urine Negative (Negative); Mucus,Urine Occasional /LPF (Occasional); Nitrite,Urine Negative (Negative); Protein,Urine 100 MG/DL; RBC,Urine 3 /HPF (0-4); Squamous Epithelial Cell,Urine Occasional /HPF (0-10); Urine Color Amber (Yellow); Urine Specific Gravity 1.026 (1.001-1.035); WBC,Urine 2 /HPF (0-6)
[2020-07-25] MEDS ORDERED: ONDANSETRON 4 MG/2 ML VIAL IV PRN (18:54)
[2020-07-25] MEDS ORDERED: MAGNESIUM SULF RIDER 2 GM in PREMIX 1 EACH IV PRN (18:54)
[2020-07-25] MEDS ORDERED: MAGNESIUM SULF RIDER 4 GM in PREMIX 1 EACH IV PRN (18:54)
[2020-07-25] MEDS ORDERED: GLUCAGON 1 MG VIAL IM PRN (18:54)
[2020-07-25] MEDS ORDERED: DEXTROSE 50% 25 GM/50 ML VIAL IV PRN ×2 (18:54)
[2020-07-25] MEDS ORDERED: ACETAMINOPHEN 325 MG TABLET PO PRN (18:54)
[2020-07-25] MEDS ORDERED: POTASSIUM CHLORIDE 20 MEQ TABLET PO ONE (19:08)
[2020-07-25] MEDS: ENOXAPARIN 40 MG/0.4 ML SYRINGE SUBCUT SCH (22:09)
[2020-07-25] MEDS: FUROSEMIDE 40 MG/4 ML VIAL IV SCH (22:10)
[2020-07-25] MEDS: INSULIN REGULAR 100 UNIT/ML SUBCUT SCH (22:16)
[2020-07-26 05:50] LABS: Basophils % 0.2 % (0.0-0.8); Eosinophils % 0.8 % (0.00-10.9); Hematocrit 34.5 VOL% (42.0-52.0); Hemoglobin 10.3 GM/DL (14.0-18.0); Immature Granulocytes % 0.4 %; Immature Granulocytes Absolute 0.02 #; Lymphocytes # 1.2 10*3/uL (1.4-4.0); Lymphocytes % 22.4 % (21.2-54.2); Mean Corpuscular HGB Conc 29.9 GM/DL (32-36); Mean Corpuscular Volume 69.4 FL (87-102); Monocytes % 10.3 % (1.7-12.7); Neutrophils % 65.9 % (38.7-73.9); Platelet Count 245 T/CUMM (130-400); Red Blood Count 4.97 MC/CUMM (3.8-5.5); Red Cell Distribution Width 23.9 % (9.3-17.3); White Blood Count 5.3 T/CUMM (4-12)
[2020-07-26 06:04] LABS: Eosinophils 2 % (0-10); Lymphocytes 17 % (20-55); Platelet Estimate Adequate; Segmented Neutrophils 67 % (50-85); Total Cells Counted 100
[2020-07-26 06:05] LABS: Hypochromasia 1+; Ovalocytes Slight
[2020-07-26 06:13] LABS: Albumin 1.8 G/DL (3.4-5.0); Bilirubin,Total 2.4 MG/DL (0.2-1.0); Calcium 8.2 MG/DL (8.5-10.1); Total Protein 6.6 G/DL (6.4-8.3)
[2020-07-26] MEDS: INSULIN REGULAR 100 UNIT/ML SUBCUT SCH ×4 (08:04→21:31)
[2020-07-26] MEDS: FUROSEMIDE 40 MG/4 ML VIAL IV SCH ×2 (09:19→18:01)
[2020-07-26] MEDS: carvediloL 6.25 MG TABLET PO SCH ×2 (09:19→18:01)
[2020-07-26] MEDS: POTASSIUM CHLORIDE 20 MEQ TABLET PO PRN ×4 (09:19→18:02)
[2020-07-26] MEDS: PANTOPRAZOLE 40 MG TABLET PO SCH (09:19)
[2020-07-26] MEDS ORDERED: MAGNESIUM SULF RIDER 2 GM in PREMIX 1 EACH IV ONE (16:00)
[2020-07-26] MEDS ORDERED: metOLazone 5 MG TABLET PO ONE (16:00)
[2020-07-26 19:20] LABS: Barbiturates Screen,Urine Negative (Negative); Benzodiazepines Screen,Urine Negative (Negative); Cannabinoid Screen,Urine Negative (Negative); Opiate Screen,Urine Negative (Negative); Phencyclidine Screen,Urine Negative (Negative)
[2020-07-26] MEDS: BACITRACIN OINT 0.9 GM PACK TOP SCH (21:30)
[2020-07-27 05:19] LABS: Basophils % 0.3 % (0.0-0.8); Eosinophils # 0.1 10*3/uL (0.0-0.87); Eosinophils % 1.6 % (0.00-10.9); Hematocrit 34.2 VOL% (42.0-52.0); Hemoglobin 10.1 GM/DL (14.0-18.0); Immature Granulocytes % 0.3 %; Immature Granulocytes Absolute 0.01 #; Lymphocytes # 1.1 10*3/uL (1.4-4.0); Lymphocytes % 29.4 % (21.2-54.2); Mean Corpuscular HGB Conc 29.5 GM/DL (32-36); Mean Corpuscular Volume 69.1 FL (87-102); Monocytes % 10.6 % (1.7-12.7); Neutrophils % 57.8 % (38.7-73.9); Platelet Count 235 T/CUMM (130-400); Red Blood Count 4.95 MC/CUMM (3.8-5.5); Red Cell Distribution Width 23.9 % (9.3-17.3); White Blood Count 3.8 T/CUMM (4-12)
[2020-07-27 05:42] LABS: Hypochromasia 1+; Ovalocytes Slight; Platelet Estimate Adequate
[2020-07-27 05:50] LABS: Albumin 1.7 G/DL (3.4-5.0); Bilirubin,Direct 0.46 MG/DL (0.0-0.20); Bilirubin,Indirect 0.7 MG/DL (0.0-1.0); Bilirubin,Total 1.2 MG/DL (0.2-1.0); Calcium 8.2 MG/DL (8.5-10.1); Osmolality,Calculated 271.2 MOS/KG (273-304); Total Protein 6.4 G/DL (6.4-8.3)
[2020-07-27] MEDS: FUROSEMIDE 40 MG/4 ML VIAL IV SCH ×2 (09:50→18:07)
[2020-07-27] MEDS: POTASSIUM CHLORIDE 20 MEQ TABLET PO PRN (10:00)
[2020-07-27] MEDS: PANTOPRAZOLE 40 MG TABLET PO SCH (10:00)
[2020-07-27] MEDS: carvediloL 6.25 MG TABLET PO SCH (10:00)
[2020-07-27] MEDS: INSULIN REGULAR 100 UNIT/ML SUBCUT SCH ×4 (10:01→21:50)
[2020-07-27] MEDS: BACITRACIN OINT 0.9 GM PACK TOP SCH ×2 (10:02→21:50)
[2020-07-27] MEDS: METOPROLOL SUCCINATE XL 25 MG TABLET PO SCH (11:36)
[2020-07-27] MEDS: ENOXAPARIN 40 MG/0.4 ML SYRINGE SUBCUT SCH (21:49)
[2020-07-27] MEDS: ZALEPLON 5 MG CAPSULE PO PRN (21:49)
[2020-07-28 04:04] LABS: Basophils % 0.5 % (0.0-0.8); Eosinophils % 0.9 % (0.00-10.9); Hematocrit 33.6 VOL% (42.0-52.0); Hemoglobin 9.9 GM/DL (14.0-18.0); Immature Granulocytes % 0.2 %; Immature Granulocytes Absolute 0.01 #; Lymphocytes # 1.2 10*3/uL (1.4-4.0); Lymphocytes % 26.6 % (21.2-54.2); Mean Corpuscular HGB Conc 29.5 GM/DL (32-36); Mean Corpuscular Volume 69.3 FL (87-102); Monocytes % 10.1 % (1.7-12.7); NRBC # 0.02 10*3/uL; Neutrophils % 61.7 % (38.7-73.9); Platelet Count 273 T/CUMM (130-400); Red Blood Count 4.85 MC/CUMM (3.8-5.5); Red Cell Distribution Width 23.7 % (9.3-17.3); White Blood Count 4.4 T/CUMM (4-12)
[2020-07-28 04:38] LABS: Albumin 1.6 G/DL (3.4-5.0); Bilirubin,Direct 0.46 MG/DL (0.0-0.20); Bilirubin,Indirect 0.8 MG/DL (0.0-1.0); Bilirubin,Total 1.3 MG/DL (0.2-1.0); Calcium 7.9 MG/DL (8.5-10.1); Osmolality,Calculated 276.4 MOS/KG (273-304); Total Protein 5.7 G/DL (6.4-8.3)
[2020-07-28 04:44] LABS: Eosinophils 5 % (0-10); Hypochromasia 1+; Lymphocytes 22 % (20-55); Microcytosis Slight; Nucleated Red Blood Cells 1 (0-5); Ovalocytes Slight; Platelet Estimate Adequate; Segmented Neutrophils 65 % (50-85); Total Cells Counted 100
[2020-07-28] MEDS ORDERED: FUROSEMIDE 40 MG TABLET PO SCH (09:00)
[2020-07-28] MEDS ORDERED: LOSARTAN 25 MG TABLET PO SCH (09:00)
[2020-07-28] MEDS: INSULIN REGULAR 100 UNIT/ML SUBCUT SCH ×4 (09:49→21:31)
[2020-07-28] MEDS: BACITRACIN OINT 0.9 GM PACK TOP SCH ×2 (09:49→21:31)
[2020-07-28] MEDS: METOPROLOL SUCCINATE XL 25 MG TABLET PO SCH (09:49)
[2020-07-28] MEDS: PANTOPRAZOLE 40 MG TABLET PO SCH (09:49)
[2020-07-28] MEDS: FUROSEMIDE 40 MG/4 ML VIAL IV SCH ×2 (10:06→19:04)
[2020-07-28] MEDS: hydrALAZINE 10 MG TABLET PO SCH ×2 (17:31→21:31)
[2020-07-28] MEDS: ISOSORBIDE DINITRATE 10 MG TABLET PO SCH ×2 (17:31→21:31)
[2020-07-28] MEDS: ZALEPLON 5 MG CAPSULE PO PRN (21:31)
[2020-07-28] MEDS: ENOXAPARIN 40 MG/0.4 ML SYRINGE SUBCUT SCH (21:31)
[2020-07-29 04:18] LABS: Basophils % 0.6 % (0.0-0.8); Eosinophils # 0.1 10*3/uL (0.0-0.87); Hematocrit 34.5 VOL% (42.0-52.0); Hemoglobin 10.3 GM/DL (14.0-18.0); Immature Granulocytes % 0.4 %; Immature Granulocytes Absolute 0.02 #; Lymphocytes # 1.3 10*3/uL (1.4-4.0); Lymphocytes % 26.2 % (21.2-54.2); Mean Corpuscular HGB Conc 29.9 GM/DL (32-36); Mean Corpuscular Volume 67.6 FL (87-102); Monocytes % 11.1 % (1.7-12.7); Neutrophils % 60.7 % (38.7-73.9); Platelet Count 287 T/CUMM (130-400); Red Cell Distribution Width 23.7 % (9.3-17.3); White Blood Count 4.8 T/CUMM (4-12)
[2020-07-29 04:35] LABS: Albumin 1.6 G/DL (3.4-5.0); Bilirubin,Direct 0.41 MG/DL (0.0-0.20); Bilirubin,Indirect 0.4 MG/DL (0.0-1.0); Bilirubin,Total 0.8 MG/DL (0.2-1.0); Calcium 7.9 MG/DL (8.5-10.1); Osmolality,Calculated 278.2 MOS/KG (273-304); Total Protein 5.9 G/DL (6.4-8.3)
[2020-07-29 04:41] LABS: Hypochromasia 1+; Platelet Estimate Adequate
[2020-07-29] MEDS: INSULIN REGULAR 100 UNIT/ML SUBCUT SCH ×4 (08:55→20:43)
[2020-07-29] MEDS: hydrALAZINE 10 MG TABLET PO SCH ×3 (10:08→20:43)
[2020-07-29] MEDS: FUROSEMIDE 40 MG TABLET PO SCH ×2 (10:08→16:48)
[2020-07-29] MEDS: PANTOPRAZOLE 40 MG TABLET PO SCH (10:08)
[2020-07-29] MEDS: BACITRACIN OINT 0.9 GM PACK TOP SCH ×2 (10:08→20:43)
[2020-07-29] MEDS: ISOSORBIDE DINITRATE 10 MG TABLET PO SCH ×3 (10:08→20:42)
[2020-07-29] MEDS: METOPROLOL SUCCINATE XL 25 MG TABLET PO SCH ×2 (10:09→20:43)
[2020-07-29] MEDS: FUROSEMIDE 40 MG/4 ML VIAL IV SCH (10:10)
[2020-07-29] MEDS: ENOXAPARIN 40 MG/0.4 ML SYRINGE SUBCUT SCH (20:42)
[2020-07-29] MEDS: ZALEPLON 5 MG CAPSULE PO PRN (20:43)
[2020-07-30 08:20] LABS: Basophils % 0.5 % (0.0-0.8); Eosinophils # 0.1 10*3/uL (0.0-0.87); Eosinophils % 1.5 % (0.00-10.9); Hematocrit 37.2 VOL% (42.0-52.0); Hemoglobin 10.9 GM/DL (14.0-18.0); Immature Granulocytes % 0.2 %; Immature Granulocytes Absolute 0.01 #; Lymphocytes # 0.8 10*3/uL (1.4-4.0); Lymphocytes % 20.2 % (21.2-54.2); Mean Corpuscular HGB Conc 29.3 GM/DL (32-36); Mean Corpuscular Volume 68.6 FL (87-102); Monocytes % 8.3 % (1.7-12.7); Neutrophils % 69.3 % (38.7-73.9); Platelet Count 296 T/CUMM (130-400); Red Blood Count 5.42 MC/CUMM (3.8-5.5); Red Cell Distribution Width 24.1 % (9.3-17.3); White Blood Count 4.1 T/CUMM (4-12)
[2020-07-30 08:26] LABS: Albumin 1.8 G/DL (3.4-5.0); Bilirubin,Total 0.8 MG/DL (0.2-1.0); Calcium 8.3 MG/DL (8.5-10.1); Osmolality,Calculated 281.2 MOS/KG (273-304); Total Protein 6.5 G/DL (6.4-8.3)
[2020-07-30] MEDS: INSULIN REGULAR 100 UNIT/ML SUBCUT SCH ×4 (10:20→20:50)
[2020-07-30] MEDS: ISOSORBIDE DINITRATE 10 MG TABLET PO SCH ×3 (10:24→20:47)
[2020-07-30] MEDS: METOPROLOL SUCCINATE XL 25 MG TABLET PO SCH ×2 (10:24→20:47)
[2020-07-30] MEDS: PANTOPRAZOLE 40 MG TABLET PO SCH (10:25)
[2020-07-30] MEDS: hydrALAZINE 10 MG TABLET PO SCH ×3 (10:25→20:47)
[2020-07-30] MEDS: BACITRACIN OINT 0.9 GM PACK TOP SCH ×2 (10:25→20:47)
[2020-07-30] MEDS: FUROSEMIDE 40 MG TABLET PO SCH (10:28)
[2020-07-30] MEDS: FUROSEMIDE 40 MG/4 ML VIAL IV SCH ×3 (10:47→20:48)
[2020-07-30 11:45] LABS: Hypochromasia 2+; Platelet Estimate Adequate; Target Cells 1+
[2020-07-30] MEDS: ENOXAPARIN 40 MG/0.4 ML SYRINGE SUBCUT SCH (20:47)
[2020-07-30] MEDS: ZALEPLON 5 MG CAPSULE PO PRN (20:47)
[2020-07-31 06:27] LABS: Basophils % 0.5 % (0.0-0.8); Eosinophils % 0.9 % (0.00-10.9); Hematocrit 33.8 VOL% (42.0-52.0); Hemoglobin 10.2 GM/DL (14.0-18.0); Immature Granulocytes % 0.2 %; Immature Granulocytes Absolute 0.01 #; Lymphocytes # 0.9 10*3/uL (1.4-4.0); Lymphocytes % 22.3 % (21.2-54.2); Mean Corpuscular HGB Conc 30.2 GM/DL (32-36); Monocytes % 12.3 % (1.7-12.7); Neutrophils % 63.8 % (38.7-73.9); Platelet Count 268 T/CUMM (130-400); Red Blood Count 4.97 MC/CUMM (3.8-5.5); Red Cell Distribution Width 23.7 % (9.3-17.3); White Blood Count 4.2 T/CUMM (4-12)
[2020-07-31 06:47] LABS: Osmolality,Calculated 287.1 MOS/KG (273-304)
[2020-07-31] MEDS ORDERED: IRON SUCROSE 100 MG/5 ML VIAL IV ONE (07:08)
[2020-07-31] MEDS ORDERED: SODIUM CHLORIDE 0.9% 0 ML IV ONE (09:07)
[2020-07-31] MEDS: SPIRONOLACTONE 25 MG TABLET PO SCH (09:55)
[2020-07-31] MEDS: METOPROLOL SUCCINATE XL 25 MG TABLET PO SCH ×2 (09:55→20:31)
[2020-07-31] MEDS: hydrALAZINE 10 MG TABLET PO SCH ×3 (09:55→20:31)
[2020-07-31] MEDS: BACITRACIN OINT 0.9 GM PACK TOP SCH ×2 (09:55→20:31)
[2020-07-31] MEDS: ISOSORBIDE DINITRATE 10 MG TABLET PO SCH ×3 (09:55→20:31)
[2020-07-31] MEDS: PANTOPRAZOLE 40 MG TABLET PO SCH (09:56)
[2020-07-31] MEDS: INSULIN REGULAR 100 UNIT/ML SUBCUT SCH ×4 (09:56→20:30)
[2020-07-31] MEDS: FUROSEMIDE 40 MG/4 ML VIAL IV SCH ×3 (09:58→20:32)
[2020-07-31 11:29] LABS: Target Cells 1+
[2020-07-31 11:30] LABS: Elliptocytes Few; Hypochromasia 4+; Microcytosis 2+; Ovalocytes 2+; Poikilocytosis 2+; Schistocytes Few
[2020-07-31 11:31] LABS: Platelet Estimate Normal
[2020-07-31] MEDS: ENOXAPARIN 40 MG/0.4 ML SYRINGE SUBCUT SCH (20:30)
[2020-07-31] MEDS: SPIRONOLACTONE 50 MG TABLET PO SCH (20:31)
[2020-07-31] MEDS: ZALEPLON 5 MG CAPSULE PO PRN (20:31)
[2020-08-01 05:40] LABS: Basophils % 0.8 % (0.0-0.8); Eosinophils # 0.1 10*3/uL (0.0-0.87); Eosinophils % 1.7 % (0.00-10.9); Hematocrit 33.5 VOL% (42.0-52.0); Immature Granulocytes % 0.3 %; Immature Granulocytes Absolute 0.01 #; Lymphocytes # 0.8 10*3/uL (1.4-4.0); Lymphocytes % 21.5 % (21.2-54.2); Mean Corpuscular HGB Conc 29.9 GM/DL (32-36); Mean Corpuscular Volume 68.6 FL (87-102); Monocytes % 10.3 % (1.7-12.7); Neutrophils % 65.4 % (38.7-73.9); Platelet Count 248 T/CUMM (130-400); Red Blood Count 4.88 MC/CUMM (3.8-5.5); Red Cell Distribution Width 23.7 % (9.3-17.3); White Blood Count 3.6 T/CUMM (4-12)
[2020-08-01 06:03] LABS: Osmolality,Calculated 293.8 MOS/KG (273-304)
[2020-08-01 06:09] LABS: Eosinophils 1 % (0-10); Lymphocytes 22 % (20-55); Platelet Estimate Adequate; Segmented Neutrophils 71 % (50-85); Total Cells Counted 100
[2020-08-01 06:10] LABS: Hypochromasia 1+; Microcytosis 1+; Target Cells Few
[2020-08-01 08:18] LABS: INR 1.1; PT Patient Result 11.7 SECS (9.8-11.9)
[2020-08-01] MEDS: INSULIN REGULAR 100 UNIT/ML SUBCUT SCH ×4 (09:04→21:51)
[2020-08-01] MEDS: BACITRACIN OINT 0.9 GM PACK TOP SCH ×2 (09:05→21:47)
[2020-08-01] MEDS: FUROSEMIDE 40 MG/4 ML VIAL IV SCH ×3 (09:10→21:48)
[2020-08-01] MEDS: hydrALAZINE 10 MG TABLET PO SCH ×3 (11:38→21:47)
[2020-08-01] MEDS: ISOSORBIDE DINITRATE 10 MG TABLET PO SCH ×3 (11:39→21:48)
[2020-08-01] MEDS: SPIRONOLACTONE 25 MG TABLET PO SCH (11:42)
[2020-08-01] MEDS: SPIRONOLACTONE 50 MG TABLET PO SCH ×2 (12:27→21:48)
[2020-08-01] MEDS: METOPROLOL SUCCINATE XL 25 MG TABLET PO SCH ×2 (12:27→21:47)
[2020-08-01] MEDS: PANTOPRAZOLE 40 MG TABLET PO SCH (12:27)
[2020-08-01] MEDS: SKIN HEALING OINT (AQUAPHOR) 50 GM TUBE TOP SCH (18:39)
[2020-08-01] MEDS: ENOXAPARIN 40 MG/0.4 ML SYRINGE SUBCUT SCH (21:50)
[2020-08-02 05:22] LABS: Basophils % 0.4 % (0.0-0.8); Eosinophils % 0.9 % (0.00-10.9); Hematocrit 32.1 VOL% (42.0-52.0); Hemoglobin 9.6 GM/DL (14.0-18.0); Immature Granulocytes % 0.2 %; Immature Granulocytes Absolute 0.01 #; Lymphocytes # 1.1 10*3/uL (1.4-4.0); Lymphocytes % 24.5 % (21.2-54.2); Mean Corpuscular HGB Conc 29.9 GM/DL (32-36); Mean Corpuscular Volume 68.9 FL (87-102); Monocytes % 11.2 % (1.7-12.7); Neutrophils % 62.8 % (38.7-73.9); Platelet Count 279 T/CUMM (130-400); Red Blood Count 4.66 MC/CUMM (3.8-5.5); Red Cell Distribution Width 23.9 % (9.3-17.3); White Blood Count 4.6 T/CUMM (4-12)
[2020-08-02 05:36] LABS: Osmolality,Calculated 297.5 MOS/KG (273-304)
[2020-08-02 05:48] LABS: Atypical Lymphocytes Few; Hypochromasia 2+; Lymphocytes 28 % (20-55); Nucleated Red Blood Cells 1 (0-5); Segmented Neutrophils 67 % (50-85); Total Cells Counted 100
[2020-08-02 05:49] LABS: Microcytosis 2+; Platelet Estimate Normal; Polychromasia Slight; Target Cells Slight
[2020-08-02] MEDS: BACITRACIN OINT 0.9 GM PACK TOP SCH (09:32)
[2020-08-02] MEDS: hydrALAZINE 10 MG TABLET PO SCH ×2 (09:32→14:19)
[2020-08-02] MEDS: PANTOPRAZOLE 40 MG TABLET PO SCH (09:32)
[2020-08-02] MEDS: METOPROLOL SUCCINATE XL 25 MG TABLET PO SCH (09:32)
[2020-08-02] MEDS: SKIN HEALING OINT (AQUAPHOR) 50 GM TUBE TOP SCH (09:32)
[2020-08-02] MEDS: SPIRONOLACTONE 50 MG TABLET PO SCH (09:32)
[2020-08-02] MEDS: ISOSORBIDE DINITRATE 10 MG TABLET PO SCH ×2 (09:32→14:19)
[2020-08-02] MEDS: INSULIN REGULAR 100 UNIT/ML SUBCUT SCH ×2 (09:34→12:43)
[2020-08-02] MEDS: FUROSEMIDE 40 MG/4 ML VIAL IV SCH ×2 (09:36→14:19)
[2020-08-02 16:03] VITALS: BP 118/80
== END 2020-08-02 16:38 | disposition home or self-care (01) | DRG 291 ==
LOC: EDUNIT# → EDBD → N.ED 16:20 → N.EDINP 16:20 → SUATTDRO 18:54 → N.EDINP 20:16 → N.TELEN 22:59 → SUATTDRO 07-30 13:23
PROVIDERS: ADMIT Internal Medicine; ATTEND Internal Medicine

== ENCOUNTER 2020-09-30 04:36 | Observation (INO) ==
[2020-09-30 05:10] LABS: Basophils % 0.4 % (0.0-0.8); Eosinophils % 0.6 % (0.00-10.9); Hematocrit 34.9 VOL% (42.0-52.0); Hemoglobin 10.5 GM/DL (14.0-18.0); Immature Granulocytes % 0.4 %; Immature Granulocytes Absolute 0.02 #; Lymphocytes % 21.6 % (21.2-54.2); Mean Corpuscular HGB Conc 30.1 GM/DL (32-36); Mean Corpuscular Volume 70.9 FL (87-102); Monocytes % 6.8 % (1.7-12.7); Neutrophils % 70.2 % (38.7-73.9); Platelet Count 193 T/CUMM (130-400); Red Blood Count 4.92 MC/CUMM (3.8-5.5); Red Cell Distribution Width 23.3 % (9.3-17.3); White Blood Count 4.8 T/CUMM (4-12)
[2020-09-30 05:19] LABS: PT Patient Result 10.9 SECS (9.8-11.9)
[2020-09-30 05:33] LABS: Albumin 2.1 G/DL (3.4-5.0); Bilirubin,Total 0.5 MG/DL (0.2-1.0); Calcium 8.6 MG/DL (8.5-10.1); Osmolality,Calculated 291.8 MOS/KG (273-304); Total Protein 7.2 G/DL (6.4-8.3)
[2020-09-30 05:44] LABS: Anisocytosis 1+; Atypical Lymphocytes Few; Band Neutrophils 1 % (0-10); Eosinophils 1 % (0-10); Lymphocytes 21 % (20-55); Platelet Estimate Normal; Segmented Neutrophils 72 % (50-85); Total Cells Counted 100
[2020-09-30] MEDS ORDERED: FUROSEMIDE 40 MG/4 ML VIAL IV STA (06:26)
[2020-09-30] MEDS ORDERED: hydrALAZINE 20 MG/1 ML VIAL IV STA (06:26)
[2020-09-30] MEDS ORDERED: INSULIN REGULAR 100 UNIT/ML IV STA (06:27)
[2020-09-30] MEDS ORDERED: ONDANSETRON 4 MG/2 ML VIAL IV PRN (09:33)
[2020-09-30] MEDS ORDERED: DEXTROSE 50% 25 GM/50 ML VIAL IV PRN (09:33)
[2020-09-30] MEDS ORDERED: DOCUSATE SODIUM 100 MG CAPSULE PO PRN (09:33)
[2020-09-30] MEDS ORDERED: ACETAMINOPHEN 325 MG TABLET PO PRN (09:33)
[2020-09-30] MEDS ORDERED: GLUCAGON 1 MG VIAL IM PRN (09:33)
[2020-09-30] MEDS ORDERED: hydrALAZINE 20 MG/1 ML VIAL IV PRN (09:33)
[2020-09-30] MEDS ORDERED: FUROSEMIDE 40 MG/4 ML VIAL IV ONE (09:34)
[2020-09-30] MEDS ORDERED: LORazepam 2 MG/1 ML VIAL IV PRN (10:51)
[2020-09-30] MEDS: ENOXAPARIN 40 MG/0.4 ML SYRINGE SUBCUT SCH (11:15)
[2020-09-30 11:16] LABS: % Iron Saturation 8.2 % (18-50); Ferritin 47.5 ng/ml (26-388)
[2020-09-30 11:21] LABS: Thyroid Stimulating Hormone 5.03 uIU/ml (0.358-3.74)
[2020-09-30] MEDS: SPIRONOLACTONE 25 MG TABLET PO SCH (12:46)
[2020-09-30] MEDS: LACTULOSE 20 GM/30 ML UDCUP PO SCH ×2 (12:48→21:36)
[2020-09-30] MEDS: INSULIN LISPRO 100 UNIT/ML SUBCUT SCH ×5 (12:49→21:50)
[2020-09-30 13:34] LABS: Barbiturates Screen,Urine Negative (Negative); Benzodiazepines Screen,Urine Negative (Negative); Cannabinoid Screen,Urine Negative (Negative); Opiate Screen,Urine Negative (Negative); Phencyclidine Screen,Urine Negative (Negative)
[2020-09-30] MEDS: ISOSORBIDE DINITRATE 10 MG TABLET PO SCH ×2 (14:17→21:35)
[2020-09-30] MEDS: hydrALAZINE 10 MG TABLET PO SCH ×2 (14:17→21:49)
[2020-09-30] MEDS ORDERED: ALBUMIN 25% 12.5 GM/50 ML VIAL IV ONE (16:25)
[2020-09-30] MEDS ORDERED: ALBUMIN 25% 12.5 GM in PREMIX 1 EACH IV ONE (17:00)
[2020-09-30] MEDS: FUROSEMIDE 40 MG/4 ML VIAL IV SCH (21:34)
[2020-09-30] MEDS: INSULIN GLARGINE 100 UNIT/ML SUBCUT SCH (21:34)
[2020-09-30] MEDS: METOPROLOL SUCCINATE XL 25 MG TABLET PO SCH (21:35)
[2020-09-30] MEDS: SPIRONOLACTONE 50 MG TABLET PO SCH (21:36)
[2020-10-01 06:11] LABS: Basophils % 0.4 % (0.0-0.8); Eosinophils % 0.4 % (0.00-10.9); Hematocrit 33.8 VOL% (42.0-52.0); Hemoglobin 10.5 GM/DL (14.0-18.0); Immature Granulocytes % 0.6 %; Immature Granulocytes Absolute 0.03 #; Lymphocytes # 1.2 10*3/uL (1.4-4.0); Mean Corpuscular HGB Conc 31.1 GM/DL (32-36); Mean Corpuscular Volume 69.5 FL (87-102); Monocytes % 6.9 % (1.7-12.7); Neutrophils % 67.7 % (38.7-73.9); Platelet Count 233 T/CUMM (130-400); Red Blood Count 4.86 MC/CUMM (3.8-5.5); Red Cell Distribution Width 22.7 % (9.3-17.3); White Blood Count 5.1 T/CUMM (4-12)
[2020-10-01 06:24] LABS: Calcium 8.2 MG/DL (8.5-10.1); Osmolality,Calculated 270.4 MOS/KG (273-304)
[2020-10-01 06:39] LABS: Hypochromasia 2+; Lymphocytes 20 % (20-55); Microcytosis 2+; Segmented Neutrophils 77 % (50-85); Total Cells Counted 100
[2020-10-01 06:40] LABS: Ovalocytes Slight; Platelet Estimate Normal
[2020-10-01] MEDS: ISOSORBIDE DINITRATE 10 MG TABLET PO SCH ×3 (09:10→20:56)
[2020-10-01] MEDS: hydrALAZINE 10 MG TABLET PO SCH ×3 (09:10→20:56)
[2020-10-01] MEDS: METOPROLOL SUCCINATE XL 25 MG TABLET PO SCH ×2 (09:10→20:57)
[2020-10-01] MEDS: FOLIC ACID 1 MG TABLET PO SCH (09:10)
[2020-10-01] MEDS: ENOXAPARIN 40 MG/0.4 ML SYRINGE SUBCUT SCH (09:11)
[2020-10-01] MEDS: LACTULOSE 20 GM/30 ML UDCUP PO SCH ×2 (09:11→20:58)
[2020-10-01] MEDS: SPIRONOLACTONE 50 MG TABLET PO SCH ×2 (09:11→20:57)
[2020-10-01] MEDS: INSULIN LISPRO 100 UNIT/ML SUBCUT SCH ×6 (09:11→16:58)
[2020-10-01] MEDS: PANTOPRAZOLE 40 MG TABLET PO SCH (09:11)
[2020-10-01] MEDS: SPIRONOLACTONE 25 MG TABLET PO SCH (09:11)
[2020-10-01] MEDS: THIAMINE 100 MG TABLET PO SCH (09:11)
[2020-10-01] MEDS: FUROSEMIDE 40 MG/4 ML VIAL IV SCH ×2 (09:12→16:58)
[2020-10-01] MEDS: IRON SUCROSE 200 MG in SODIUM CHLORIDE 0.9% 100 ML IV SCH (14:44)
[2020-10-01] MEDS: INSULIN GLARGINE 100 UNIT/ML SUBCUT SCH (20:57)
[2020-10-02] MEDS: INSULIN LISPRO 100 UNIT/ML SUBCUT SCH ×5 (04:58→12:35)
[2020-10-02 05:45] LABS: Basophils % 0.8 % (0.0-0.8); Eosinophils % 0.6 % (0.00-10.9); Hematocrit 34.1 VOL% (42.0-52.0); Hemoglobin 10.3 GM/DL (14.0-18.0); Immature Granulocytes % 0.6 %; Immature Granulocytes Absolute 0.03 #; Lymphocytes # 1.5 10*3/uL (1.4-4.0); Lymphocytes % 31.6 % (21.2-54.2); Mean Corpuscular HGB Conc 30.2 GM/DL (32-36); Mean Corpuscular Volume 69.9 FL (87-102); Monocytes % 8.6 % (1.7-12.7); NRBC # 0.02 10*3/uL; Neutrophils % 57.8 % (38.7-73.9); Platelet Count 271 T/CUMM (130-400); Red Blood Count 4.88 MC/CUMM (3.8-5.5); Red Cell Distribution Width 23.1 % (9.3-17.3); White Blood Count 4.7 T/CUMM (4-12)
[2020-10-02 06:05] LABS: Hypochromasia 2+
[2020-10-02 06:06] LABS: Microcytosis 2+
[2020-10-02 06:07] LABS: Platelet Estimate Normal; Target Cells Slight
[2020-10-02 06:15] LABS: Osmolality,Calculated 272.5 MOS/KG (273-304)
[2020-10-02] MEDS: hydrALAZINE 10 MG TABLET PO SCH (08:51)
[2020-10-02] MEDS: LACTULOSE 20 GM/30 ML UDCUP PO SCH (08:51)
[2020-10-02] MEDS: FUROSEMIDE 40 MG/4 ML VIAL IV SCH (08:51)
[2020-10-02] MEDS: FOLIC ACID 1 MG TABLET PO SCH (08:51)
[2020-10-02] MEDS: ISOSORBIDE DINITRATE 10 MG TABLET PO SCH (08:51)
[2020-10-02] MEDS: THIAMINE 100 MG TABLET PO SCH (08:51)
[2020-10-02] MEDS: PANTOPRAZOLE 40 MG TABLET PO SCH (08:51)
[2020-10-02] MEDS: METOPROLOL SUCCINATE XL 25 MG TABLET PO SCH (08:51)
[2020-10-02] MEDS: ENOXAPARIN 40 MG/0.4 ML SYRINGE SUBCUT SCH (08:59)
[2020-10-02] MEDS: SPIRONOLACTONE 50 MG TABLET PO SCH (09:02)
[2020-10-02 09:06] VITALS: BP 103/81
[2020-10-02] MEDS: IRON SUCROSE 200 MG in SODIUM CHLORIDE 0.9% 100 ML IV SCH (11:05)
== END 2020-10-02 13:04 | disposition home or self-care (01) ==
LOC: N.ED 04:36 → N.EDINP 04:36 → N.TELEN 10:38
PROVIDERS: ADMIT Emergency Medicine; ATTEND Emergency Medicine

== ENCOUNTER 2020-10-15 11:32 | Inpatient (IN) ==
[2020-10-15 13:43] LABS: Basophils % 0.7 % (0.0-0.8); Eosinophils % 0.5 % (0.00-10.9); Immature Granulocytes % 0.5 %; Immature Granulocytes Absolute 0.03 #; Lymphocytes # 1.3 10*3/uL (1.4-4.0); Lymphocytes % 22.7 % (21.2-54.2); Mean Corpuscular HGB Conc 29.7 GM/DL (32-36); Mean Platelet Volume 10.6 FL (9.6-12.0); Monocytes % 9.8 % (1.7-12.7); Neutrophils % 65.8 % (38.7-73.9); Platelet Count 255 T/CUMM (130-400); Red Cell Distribution Width 23.5 % (9.3-17.3); White Blood Count 5.7 T/CUMM (4-12)
[2020-10-15 13:51] LABS: INR 1.1; PT Patient Result 11.3 SECS (9.8-11.9)
[2020-10-15 13:58] LABS: Albumin 2.3 G/DL (3.4-5.0); Calcium 8.1 MG/DL (8.5-10.1); Osmolality,Calculated 281.2 MOS/KG (273-304); Total Protein 6.4 G/DL (6.4-8.3)
[2020-10-15 14:05] LABS: Band Neutrophils 1 % (0-10); Lymphocytes 20 % (20-55); Segmented Neutrophils 67 % (50-85); Total Cells Counted 100
[2020-10-15 14:06] LABS: Anisocytosis 1+; Atypical Lymphocytes Few; Hypochromasia Slight; Microcytosis 1+; Platelet Estimate Normal; Polychromasia Few
[2020-10-15] MEDS ORDERED: hydrALAZINE 20 MG/1 ML VIAL IV PRN (14:57)
[2020-10-15] MEDS ORDERED: GLUCAGON 1 MG VIAL IM PRN (14:57)
[2020-10-15] MEDS ORDERED: DEXTROSE 50% 25 GM/50 ML VIAL IV PRN (14:57)
[2020-10-15] MEDS ORDERED: ONDANSETRON 4 MG/2 ML VIAL IV PRN (14:57)
[2020-10-15] MEDS ORDERED: FUROSEMIDE 40 MG/4 ML VIAL IV SCH (15:30)
[2020-10-15] MEDS ORDERED: LORazepam 2 MG/1 ML VIAL IV PRN (15:36)
[2020-10-15 15:56] LABS: % Iron Saturation 17.5 % (18-50)
[2020-10-15] MEDS: INSULIN LISPRO 100 UNIT/ML SUBCUT SCH ×2 (17:29→21:03)
[2020-10-15] MEDS: ENOXAPARIN 40 MG/0.4 ML SYRINGE SUBCUT SCH (17:30)
[2020-10-15] MEDS ORDERED: PNEUMOCOCCAL VACCINE (23 VALENT) 0.5 ML VIAL IM ONE (17:43)
[2020-10-15] MEDS ORDERED: INFLUENZA VIRUS VACCINE 0.5 ML SYRINGE IM ONE (17:43)
[2020-10-15] MEDS: FUROSEMIDE 40 MG/4 ML VIAL IV SCH (21:00)
[2020-10-15] MEDS: INSULIN GLARGINE 100 UNIT/ML SUBCUT SCH (21:03)
[2020-10-16 00:35] LABS: Barbiturates Screen,Urine Negative (Negative); Benzodiazepines Screen,Urine Negative (Negative); Cannabinoid Screen,Urine Negative (Negative); Opiate Screen,Urine Negative (Negative); Phencyclidine Screen,Urine Negative (Negative)
[2020-10-16 05:58] LABS: Basophils % 0.5 % (0.0-0.8); Eosinophils % 0.5 % (0.00-10.9); Hematocrit 34.2 VOL% (42.0-52.0); Hemoglobin 10.5 GM/DL (14.0-18.0); Immature Granulocytes % 0.5 %; Immature Granulocytes Absolute 0.03 #; Lymphocytes # 1.1 10*3/uL (1.4-4.0); Lymphocytes % 17.6 % (21.2-54.2); Mean Corpuscular HGB Conc 30.7 GM/DL (32-36); Mean Platelet Volume 10.2 FL (9.6-12.0); Monocytes % 11.2 % (1.7-12.7); NRBC # 0.02 10*3/uL; Neutrophils % 69.7 % (38.7-73.9); Platelet Count 244 T/CUMM (130-400); Red Blood Count 4.75 MC/CUMM (3.8-5.5); Red Cell Distribution Width 23.2 % (9.3-17.3)
[2020-10-16 06:15] LABS: Calcium 8.3 MG/DL (8.5-10.1); Osmolality,Calculated 277.5 MOS/KG (273-304)
[2020-10-16 06:29] LABS: Hypochromasia 1+; Microcytosis 1+; Platelet Estimate Adequate
[2020-10-16 06:37] LABS: Folate 16.6 NG/ML (5.4-24.0)
[2020-10-16] MEDS: INSULIN LISPRO 100 UNIT/ML SUBCUT SCH ×4 (09:03→21:22)
[2020-10-16] MEDS: PANTOPRAZOLE 40 MG TABLET PO SCH (09:03)
[2020-10-16] MEDS: FUROSEMIDE 40 MG/4 ML VIAL IV SCH ×2 (09:03→20:15)
[2020-10-16] MEDS: ENOXAPARIN 40 MG/0.4 ML SYRINGE SUBCUT SCH (18:05)
[2020-10-16] MEDS: INSULIN GLARGINE 100 UNIT/ML SUBCUT SCH (21:22)
[2020-10-17] MEDS: INSULIN LISPRO 100 UNIT/ML SUBCUT SCH ×4 (08:47→21:24)
[2020-10-17] MEDS ORDERED: ALBUMIN 25% 12.5 GM/50 ML VIAL IV ONE (09:11)
[2020-10-17] MEDS ORDERED: ALBUMIN 25% 12.5 GM in PREMIX 1 EACH IV ONE (09:15)
[2020-10-17] MEDS: FUROSEMIDE 40 MG/4 ML VIAL IV SCH ×2 (09:58→21:30)
[2020-10-17] MEDS: PANTOPRAZOLE 40 MG TABLET PO SCH (11:01)
[2020-10-17] MEDS: POLYETHYLENE GLYCOL POWDER 17 GM PACK PO SCH (12:27)
[2020-10-17] MEDS: ENOXAPARIN 40 MG/0.4 ML SYRINGE SUBCUT SCH (17:32)
[2020-10-17] MEDS: NYSTATIN CREAM 15 GM TUBE TOP SCH (21:24)
[2020-10-17] MEDS: INSULIN GLARGINE 100 UNIT/ML SUBCUT SCH (21:24)
[2020-10-18 05:42] LABS: Basophils % 0.7 % (0.0-0.8); Eosinophils # 0.1 10*3/uL (0.0-0.87); Eosinophils % 1.6 % (0.00-10.9); Hematocrit 36.1 VOL% (42.0-52.0); Hemoglobin 10.8 GM/DL (14.0-18.0); Immature Granulocytes % 0.7 %; Immature Granulocytes Absolute 0.03 #; Lymphocytes # 1.3 10*3/uL (1.4-4.0); Lymphocytes % 29.3 % (21.2-54.2); Mean Corpuscular HGB Conc 29.9 GM/DL (32-36); Mean Corpuscular Volume 73.8 FL (87-102); Mean Platelet Volume 10.7 FL (9.6-12.0); Neutrophils % 57.7 % (38.7-73.9); Platelet Count 219 T/CUMM (130-400); Red Blood Count 4.89 MC/CUMM (3.8-5.5); Red Cell Distribution Width 23.6 % (9.3-17.3); White Blood Count 4.3 T/CUMM (4-12)
[2020-10-18 05:56] LABS: Albumin 1.9 G/DL (3.4-5.0); Bilirubin,Total 0.4 MG/DL (0.2-1.0); Calcium 7.7 MG/DL (8.5-10.1); Total Protein 5.9 G/DL (6.4-8.3)
[2020-10-18 06:03] LABS: Eosinophils 2 % (0-10); Lymphocytes 34 % (20-55); Platelet Estimate Adequate; Segmented Neutrophils 58 % (50-85); Total Cells Counted 100
[2020-10-18 06:04] LABS: Hypochromasia 1+; Microcytosis 1+
[2020-10-18] MEDS: INSULIN LISPRO 100 UNIT/ML SUBCUT SCH ×4 (07:12→20:56)
[2020-10-18] MEDS: POLYETHYLENE GLYCOL POWDER 17 GM PACK PO SCH (08:21)
[2020-10-18] MEDS: FUROSEMIDE 40 MG/4 ML VIAL IV SCH (08:21)
[2020-10-18] MEDS: NYSTATIN CREAM 15 GM TUBE TOP SCH ×2 (08:33→20:57)
[2020-10-18] MEDS: SPIRONOLACTONE 25 MG TABLET PO SCH (10:09)
[2020-10-18] MEDS ORDERED: MAGNESIUM CITRATE 300 ML BOTTLE PO ONE (11:00)
[2020-10-18] MEDS: FUROSEMIDE 40 MG TABLET PO SCH (16:43)
[2020-10-18] MEDS: ENOXAPARIN 40 MG/0.4 ML SYRINGE SUBCUT SCH (18:10)
[2020-10-18] MEDS: INSULIN GLARGINE 100 UNIT/ML SUBCUT SCH (20:56)
[2020-10-19 05:59] LABS: Basophils % 0.9 % (0.0-0.8); Eosinophils # 0.1 10*3/uL (0.0-0.87); Eosinophils % 1.7 % (0.00-10.9); Hematocrit 35.6 VOL% (42.0-52.0); Hemoglobin 10.6 GM/DL (14.0-18.0); Immature Granulocytes % 0.3 %; Immature Granulocytes Absolute 0.01 #; Lymphocytes % 29.2 % (21.2-54.2); Mean Corpuscular HGB Conc 29.8 GM/DL (32-36); Mean Corpuscular Volume 75.1 FL (87-102); Mean Platelet Volume 10.9 FL (9.6-12.0); Monocytes % 12.9 % (1.7-12.7); Platelet Count 224 T/CUMM (130-400); Red Blood Count 4.74 MC/CUMM (3.8-5.5); Red Cell Distribution Width 23.3 % (9.3-17.3); White Blood Count 3.5 T/CUMM (4-12)
[2020-10-19 06:18] LABS: Hypochromasia 1+
[2020-10-19 06:19] LABS: Microcytosis 1+; Ovalocytes Slight
[2020-10-19 06:20] LABS: Platelet Estimate Normal; Polychromasia Slight; Target Cells Slight
[2020-10-19 06:26] LABS: Albumin 1.8 G/DL (3.4-5.0); Bilirubin,Total 0.8 MG/DL (0.2-1.0); Calcium 7.6 MG/DL (8.5-10.1); Total Protein 5.5 G/DL (6.4-8.3)
[2020-10-19 08:38] VITALS: BP 107/79
[2020-10-19] MEDS: INSULIN LISPRO 100 UNIT/ML SUBCUT SCH (08:50)
[2020-10-19] MEDS: SPIRONOLACTONE 25 MG TABLET PO SCH (08:56)
[2020-10-19] MEDS: FUROSEMIDE 40 MG TABLET PO SCH (08:56)
[2020-10-19] MEDS ORDERED: SPIRONOLACTONE 25 MG TABLET PO SCH (09:00)
[2020-10-19] MEDS: ENOXAPARIN 40 MG/0.4 ML SYRINGE SUBCUT SCH (10:21)
[2020-10-19] MEDS: NYSTATIN CREAM 15 GM TUBE TOP SCH (10:21)
[2020-10-19] MEDS: POLYETHYLENE GLYCOL POWDER 17 GM PACK PO SCH (10:21)
== END 2020-10-19 10:53 | disposition home or self-care (01) | DRG 291 ==
LOC: N.ED 11:32 → SUATTDRO 16:06 → N.EDINP 16:06 → N.5E 17:02
PROVIDERS: ADMIT Internal Medicine; ATTEND Internal Medicine

== ENCOUNTER 2020-11-08 01:03 | Observation (INO) ==
[2020-11-08 01:25] LABS: Basophils % 0.6 % (0.0-0.8); Eosinophils # 0.1 10*3/uL (0.0-0.87); Hemoglobin 10.8 GM/DL (14.0-18.0); Immature Granulocytes % 0.2 %; Immature Granulocytes Absolute 0.01 #; Lymphocytes # 1.1 10*3/uL (1.4-4.0); Lymphocytes % 22.6 % (21.2-54.2); Mean Corpuscular Volume 74.5 FL (87-102); Mean Platelet Volume 10.3 FL (9.6-12.0); Monocytes % 8.7 % (1.7-12.7); Neutrophils % 66.9 % (38.7-73.9); Platelet Count 309 T/CUMM (130-400); Red Blood Count 4.83 MC/CUMM (3.8-5.5); Red Cell Distribution Width 22.1 % (9.3-17.3)
[2020-11-08] MEDS ORDERED: methylPREDNISolone SOD SUC 125 MG/2 ML VIAL IV STA (01:26)
[2020-11-08] MEDS ORDERED: ONDANSETRON 4 MG/2 ML VIAL IV STA (01:26)
[2020-11-08] MEDS ORDERED: FUROSEMIDE 100 MG/10 ML VIAL IV STA (01:26)
[2020-11-08] MEDS ORDERED: ALBUTEROL/IPRATROPIUM 3 ML NEB RESP TX STA (01:26)
[2020-11-08 01:43] LABS: Amylase 33 U/L (25-115); PT Patient Result 10.8 SECS (9.8-11.9)
[2020-11-08 01:48] LABS: Albumin 2.1 G/DL (3.4-5.0); Bilirubin,Total 0.5 MG/DL (0.2-1.0); Calcium 8.3 MG/DL (8.5-10.1); Osmolality,Calculated 292.5 MOS/KG (273-304)
[2020-11-08] MEDS ORDERED: INSULIN REGULAR 100 UNIT/ML SUBCUT STA (02:15)
[2020-11-08] MEDS ORDERED: INSULIN REGULAR 100 UNIT/ML ONE (02:17)
[2020-11-08 02:34] LABS: Hypochromasia 2+; Platelet Estimate Normal; Schistocytes Few
[2020-11-08 02:35] LABS: Ovalocytes 1+
[2020-11-08 03:00] LABS: Bilirubin,Urine Negative (Negative); Blood, Urine Negative (Negative); Glucose,Urine (UA) >=500 mg/dL (Negative); Hyaline Casts,Urine 42 /LPF (0-3); Ketones,Urine Negative (Negative); Mucus,Urine Occasional /LPF (Occasional); Nitrite,Urine Negative (Negative); Protein,Urine 100 MG/DL; RBC,Urine 3 /HPF (0-4); Squamous Epithelial Cell,Urine Occasional /HPF (0-10); Urine Appearance CLEAR (Clear); Urine Color Yellow (Yellow); Urine Specific Gravity 1.021 (1.001-1.035); Urine Urobilinogen < 2.0 EU/DL (0.2-1.0); WBC,Urine 1 /HPF (0-6)
[2020-11-08 03:10] LABS: Barbiturates Screen,Urine Negative (Negative); Benzodiazepines Screen,Urine Negative (Negative); Cannabinoid Screen,Urine Positive (Negative); Opiate Screen,Urine Negative (Negative); Phencyclidine Screen,Urine Negative (Negative)
[2020-11-08] MEDS ORDERED: GLUCAGON 1 MG VIAL IM PRN (04:23)
[2020-11-08] MEDS ORDERED: DEXTROSE 50% 25 GM/50 ML VIAL IV PRN (04:23)
[2020-11-08] MEDS ORDERED: hydrALAZINE 20 MG/1 ML VIAL IV PRN (04:23)
[2020-11-08] MEDS ORDERED: ONDANSETRON 4 MG/2 ML VIAL IV PRN (04:23)
[2020-11-08] MEDS ORDERED: NICOTINE 21 MG/24 HR PATCH TRANSDERM PRN (04:23)
[2020-11-08] MEDS ORDERED: ACETAMINOPHEN 325 MG TABLET PO PRN (04:23)
[2020-11-08] MEDS: INSULIN REGULAR 100 UNIT/ML SUBCUT SCH ×3 (06:32→17:15)
[2020-11-08] MEDS ORDERED: ALBUMIN 25% 12.5 GM/50 ML VIAL IV ONE (09:58)
[2020-11-08] MEDS ORDERED: ALBUMIN 25% 12.5 GM in PREMIX 1 EACH IV ONE (10:05)
[2020-11-08] MEDS: FUROSEMIDE 40 MG/4 ML VIAL IV SCH ×2 (11:00→17:15)
[2020-11-08] MEDS: METOPROLOL SUCCINATE XL 25 MG TABLET PO SCH ×2 (14:10→21:10)
[2020-11-08] MEDS ORDERED: hydrALAZINE 25 MG TABLET PO SCH (15:00)
[2020-11-08] MEDS ORDERED: ISOSORBIDE DINITRATE 10 MG TABLET PO SCH (15:00)
[2020-11-08 16:21] LABS: Basophils % 0.1 % (0.0-0.8); Hematocrit 39.4 VOL% (42.0-52.0); Hemoglobin 11.8 GM/DL (14.0-18.0); Immature Granulocytes % 0.7 %; Immature Granulocytes Absolute 0.07 #; Mean Corpuscular HGB Conc 29.9 GM/DL (32-36); Mean Corpuscular Volume 75.3 FL (87-102); Monocytes % 1.7 % (1.7-12.7); Neutrophils % 87.5 % (38.7-73.9); Platelet Count 328 T/CUMM (130-400); Red Blood Count 5.23 MC/CUMM (3.8-5.5); Red Cell Distribution Width 22.5 % (9.3-17.3); White Blood Count 9.7 T/CUMM (4-12)
[2020-11-08] MEDS ORDERED: SPIRONOLACTONE 50 MG TABLET PO SCH (21:00)
[2020-11-08] MEDS: diphenhydrAMINE CAP 25 MG CAPSULE PO PRN (21:10)
[2020-11-08] MEDS: glipiZIDE 5 MG TABLET PO SCH (21:10)
[2020-11-08] MEDS: FERROUS SULFATE 325 MG TABLET PO SCH (21:10)
[2020-11-09] MEDS: INSULIN REGULAR 100 UNIT/ML SUBCUT SCH ×5 (00:51→21:37)
[2020-11-09] MEDS: glipiZIDE 5 MG TABLET PO SCH ×2 (08:56→21:44)
[2020-11-09] MEDS: METOPROLOL SUCCINATE XL 25 MG TABLET PO SCH (08:56)
[2020-11-09] MEDS: ASPIRIN EC 81 MG TABLET PO SCH (08:57)
[2020-11-09] MEDS: FERROUS SULFATE 325 MG TABLET PO SCH ×2 (08:57→21:44)
[2020-11-09] MEDS ORDERED: LOSARTAN 25 MG TABLET PO SCH (09:00)
[2020-11-09] MEDS: SPIRONOLACTONE 25 MG TABLET PO SCH (09:03)
[2020-11-09] MEDS: FUROSEMIDE 40 MG/4 ML VIAL IV SCH (09:04)
[2020-11-09] MEDS ORDERED: GLUCAGON 1 MG VIAL IM PRN (10:37)
[2020-11-09] MEDS ORDERED: DEXTROSE 50% 25 GM/50 ML VIAL IV PRN (10:37)
[2020-11-09] MEDS: FUROSEMIDE 40 MG TABLET PO SCH (16:50)
[2020-11-09] MEDS: diphenhydrAMINE CAP 25 MG CAPSULE PO PRN (22:20)
[2020-11-10] MEDS: INSULIN REGULAR 100 UNIT/ML SUBCUT SCH ×2 (08:31→11:55)
[2020-11-10] MEDS: METOPROLOL SUCCINATE XL 25 MG TABLET PO SCH (08:32)
[2020-11-10] MEDS: FERROUS SULFATE 325 MG TABLET PO SCH (08:32)
[2020-11-10] MEDS: glipiZIDE 5 MG TABLET PO SCH (08:32)
[2020-11-10] MEDS: ASPIRIN EC 81 MG TABLET PO SCH (08:32)
[2020-11-10] MEDS: SPIRONOLACTONE 25 MG TABLET PO SCH (08:32)
[2020-11-10] MEDS: FUROSEMIDE 40 MG TABLET PO SCH (08:32)
[2020-11-10 09:33] LABS: Calcium 8.2 MG/DL (8.5-10.1); Osmolality,Calculated 282.2 MOS/KG (273-304)
[2020-11-10 12:02] VITALS: BP 127/79
[2020-11-10] MEDS ORDERED: SPIRONOLACTONE 25 MG TABLET PO SCH (21:00)
== END 2020-11-10 12:25 | disposition home or self-care (01) ==
LOC: EDBD → SUATTDRO → EDUNIT# → N.ED 01:03 → N.EDINP 01:03 → SUATTDRO 04:23 → N.TELES 15:15
PROVIDERS: ADMIT Internal Medicine; ATTEND Internal Medicine

== ENCOUNTER 2020-11-14 14:20 | Observation (INO) ==
[2020-11-14 20:25] LABS: Basophils % 0.3 % (0.0-0.8); Eosinophils # 0.1 10*3/uL (0.0-0.87); Eosinophils % 0.7 % (0.00-10.9); Hematocrit 37.1 VOL% (42.0-52.0); Hemoglobin 11.1 GM/DL (14.0-18.0); Immature Granulocytes % 0.3 %; Immature Granulocytes Absolute 0.02 #; Lymphocytes # 1.3 10*3/uL (1.4-4.0); Mean Corpuscular HGB Conc 29.9 GM/DL (32-36); Mean Corpuscular Volume 74.5 FL (87-102); Mean Platelet Volume 10.1 FL (9.6-12.0); Monocytes % 7.6 % (1.7-12.7); Neutrophils % 72.1 % (38.7-73.9); Platelet Count 283 T/CUMM (130-400); Red Blood Count 4.98 MC/CUMM (3.8-5.5); Red Cell Distribution Width 22.5 % (9.3-17.3)
[2020-11-14 20:49] LABS: Bilirubin,Total 0.5 MG/DL (0.2-1.0); Calcium 8.2 MG/DL (8.5-10.1); Osmolality,Calculated 292.8 MOS/KG (273-304); Total Protein 6.3 G/DL (6.4-8.3)
[2020-11-14] MEDS ORDERED: ACETAMINOPHEN 325 MG TABLET PO PRN (20:55)
[2020-11-14] MEDS ORDERED: ONDANSETRON 4 MG/2 ML VIAL IV PRN (20:55)
[2020-11-14] MEDS ORDERED: GLUCAGON 1 MG VIAL IM PRN ×2 (20:55→21:22)
[2020-11-14] MEDS ORDERED: DEXTROSE 50% 25 GM/50 ML VIAL IV PRN (20:55)
[2020-11-14 20:58] LABS: Anisocytosis 1+; Eosinophils 3 % (0-10); Hypochromasia 1+; Lymphocytes 16 % (20-55); Microcytosis 1+; Platelet Estimate Normal; Segmented Neutrophils 78 % (50-85); Total Cells Counted 100
[2020-11-14] MEDS ORDERED: ONDANSETRON 4 MG/2 ML VIAL IM PRN (21:10)
[2020-11-14] MEDS ORDERED: DEXTROSE 50% 25 GM/50 ML SYRINGE IV PRN (21:22)
[2020-11-14] MEDS: INSULIN REGULAR 100 UNIT/ML SUBCUT SCH (23:54)
[2020-11-15 07:57] LABS: Basophils % 0.3 % (0.0-0.8); Eosinophils # 0.1 10*3/uL (0.0-0.87); Eosinophils % 1.4 % (0.00-10.9); Hematocrit 36.5 VOL% (42.0-52.0); Hemoglobin 11.4 GM/DL (14.0-18.0); Immature Granulocytes % 0.7 %; Immature Granulocytes Absolute 0.05 #; Lymphocytes # 1.3 10*3/uL (1.4-4.0); Lymphocytes % 17.3 % (21.2-54.2); Mean Corpuscular HGB Conc 31.2 GM/DL (32-36); Mean Corpuscular Volume 72.7 FL (87-102); Mean Platelet Volume 10.2 FL (9.6-12.0); Monocytes % 9.1 % (1.7-12.7); Neutrophils % 71.2 % (38.7-73.9); Platelet Count 284 T/CUMM (130-400); Red Blood Count 5.02 MC/CUMM (3.8-5.5); Red Cell Distribution Width 22.5 % (9.3-17.3); White Blood Count 7.4 T/CUMM (4-12)
[2020-11-15 08:04] LABS: PT Patient Result 10.5 SECS (9.8-11.9)
[2020-11-15 08:20] LABS: Albumin 2.2 G/DL (3.4-5.0); Bilirubin,Total 1.5 MG/DL (0.2-1.0); Calcium 8.3 MG/DL (8.5-10.1); Osmolality,Calculated 275.5 MOS/KG (273-304); Total Protein 6.3 G/DL (6.4-8.3)
[2020-11-15 08:37] LABS: Hypochromasia Slight; Ovalocytes Slight; Platelet Estimate Adequate
[2020-11-15 08:38] LABS: Microcytosis 1+
[2020-11-15] MEDS: METOPROLOL SUCCINATE XL 25 MG TABLET PO SCH ×2 (09:07→20:04)
[2020-11-15] MEDS: FERROUS SULFATE 325 MG TABLET PO SCH ×2 (09:07→16:42)
[2020-11-15] MEDS: FUROSEMIDE 40 MG TABLET PO SCH ×2 (09:07→16:42)
[2020-11-15] MEDS: PANTOPRAZOLE 40 MG TABLET PO SCH (09:07)
[2020-11-15] MEDS: INSULIN REGULAR 100 UNIT/ML SUBCUT SCH ×4 (09:10→20:04)
[2020-11-16 05:35] LABS: Basophils % 0.6 % (0.0-0.8); Eosinophils # 0.1 10*3/uL (0.0-0.87); Eosinophils % 1.1 % (0.00-10.9); Hematocrit 36.2 VOL% (42.0-52.0); Hemoglobin 11.2 GM/DL (14.0-18.0); Immature Granulocytes % 1.1 %; Immature Granulocytes Absolute 0.08 #; Lymphocytes # 1.6 10*3/uL (1.4-4.0); Lymphocytes % 22.6 % (21.2-54.2); Mean Corpuscular HGB Conc 30.9 GM/DL (32-36); Mean Corpuscular Volume 72.8 FL (87-102); Mean Platelet Volume 9.9 FL (9.6-12.0); Monocytes % 8.4 % (1.7-12.7); Neutrophils % 66.2 % (38.7-73.9); Platelet Count 270 T/CUMM (130-400); Red Blood Count 4.97 MC/CUMM (3.8-5.5); Red Cell Distribution Width 22.5 % (9.3-17.3)
[2020-11-16 05:57] LABS: Eosinophils 3 % (0-10); Hypochromasia 1+; Lymphocytes 19 % (20-55); Microcytosis 1+; Platelet Estimate Adequate; Segmented Neutrophils 71 % (50-85); Total Cells Counted 100
[2020-11-16 06:20] LABS: Albumin 1.9 G/DL (3.4-5.0); Bilirubin,Total 0.6 MG/DL (0.2-1.0); Calcium 8.2 MG/DL (8.5-10.1); Osmolality,Calculated 282.8 MOS/KG (273-304); Total Protein 6.1 G/DL (6.4-8.3)
[2020-11-16] MEDS: FERROUS SULFATE 325 MG TABLET PO SCH (10:22)
[2020-11-16] MEDS: FUROSEMIDE 40 MG TABLET PO SCH (10:23)
[2020-11-16] MEDS: INSULIN REGULAR 100 UNIT/ML SUBCUT SCH (10:23)
[2020-11-16] MEDS: PANTOPRAZOLE 40 MG TABLET PO SCH (10:24)
[2020-11-16] MEDS: METOPROLOL SUCCINATE XL 25 MG TABLET PO SCH (10:24)
[2020-11-16 11:33] VITALS: BP 113/93
== END 2020-11-16 11:22 | disposition home or self-care (01) ==
LOC: N.ED 14:20 → N.3E 14:20
PROVIDERS: ADMIT Family Medicine; ATTEND Family Medicine

== ENCOUNTER 2020-11-29 22:29 | Observation (INO) ==
[2020-11-30] MEDS ORDERED: ONDANSETRON 4 MG/2 ML VIAL IV STA (02:18)
[2020-11-30 03:23] LABS: Basophils % 0.7 % (0.0-0.8); Eosinophils % 0.7 % (0.00-10.9); Hematocrit 39.2 VOL% (42.0-52.0); Hemoglobin 11.8 GM/DL (14.0-18.0); Immature Granulocytes % 0.4 %; Immature Granulocytes Absolute 0.02 #; Lymphocytes # 0.9 10*3/uL (1.4-4.0); Lymphocytes % 18.5 % (21.2-54.2); Mean Corpuscular HGB Conc 30.1 GM/DL (32-36); Mean Corpuscular Volume 76.3 FL (87-102); Mean Platelet Volume 10.6 FL (9.6-12.0); Monocytes % 8.1 % (1.7-12.7); Neutrophils % 71.6 % (38.7-73.9); Platelet Count 312 T/CUMM (130-400); Red Blood Count 5.14 MC/CUMM (3.8-5.5); Red Cell Distribution Width 22.3 % (9.3-17.3); White Blood Count 4.6 T/CUMM (4-12)
[2020-11-30 03:37] LABS: Alanine Aminotransferase 15 U/L (16-61); Alkaline Phosphatase 175 U/L (45-117); Amylase 59 U/L (25-115); Aspartate Amino Transferase 22 U/L (0-37); Blood Urea Nitrogen 16 MG/DL (7-18); Calcium 8.3 MG/DL (8.5-10.1); Estimated Glom Filtration Rate 116 ML/MIN; Glucose 327 MG/DL (74-106); Osmolality,Calculated 288.7 MOS/KG (273-304); Total Protein 6.4 G/DL (6.4-8.3)
[2020-11-30 03:57] LABS: Hypochromasia 1+; Microcytosis Slight; Platelet Estimate Adequate
[2020-11-30] MEDS ORDERED: MAGNESIUM SULF RIDER 2 GM in PREMIX 1 EACH IV STA (04:26)
[2020-11-30 05:27] LABS: Bilirubin,Urine Negative (Negative); Blood, Urine Small mg/dL (Negative); Glucose,Urine (UA) >=500 mg/dL (Negative); Ketones,Urine Negative (Negative); Nitrite,Urine Negative (Negative); Protein,Urine 30 MG/DL; RBC,Urine 2 /HPF (0-4); Squamous Epithelial Cell,Urine Occasional /HPF (0-10); Urine Appearance CLEAR (Clear); Urine Color Yellow (Yellow); Urine Urobilinogen < 2.0 EU/DL (0.2-1.0)
[2020-11-30] MEDS ORDERED: GLUCAGON 1 MG VIAL IM PRN (05:30)
[2020-11-30] MEDS ORDERED: ONDANSETRON 4 MG/2 ML VIAL IV PRN (05:30)
[2020-11-30] MEDS ORDERED: DOCUSATE SODIUM 100 MG CAPSULE PO PRN (05:30)
[2020-11-30] MEDS ORDERED: DEXTROSE 50% 25 GM/50 ML VIAL IV PRN (05:30)
[2020-11-30 05:34] LABS: Barbiturates Screen,Urine Negative (Negative); Benzodiazepines Screen,Urine Negative (Negative); Cannabinoid Screen,Urine Negative (Negative); Opiate Screen,Urine Negative (Negative); Phencyclidine Screen,Urine Negative (Negative)
[2020-11-30] MEDS: INSULIN LISPRO 100 UNIT/ML SUBCUT SCH ×4 (09:35→22:05)
[2020-11-30] MEDS ORDERED: ALBUMIN 25% 25 GM in PREMIX 1 EACH IV ONE (10:18)
[2020-11-30] MEDS: FUROSEMIDE 40 MG TABLET PO SCH (16:04)
[2020-11-30] MEDS: glipiZIDE 5 MG TABLET PO SCH (20:44)
[2020-11-30] MEDS: metFORMIN 500 MG TABLET PO SCH (20:45)
[2020-12-01] MEDS ORDERED: FERROUS SULFATE 325 MG TABLET PO SCH (09:00)
[2020-12-01] MEDS: glipiZIDE 5 MG TABLET PO SCH (09:13)
[2020-12-01] MEDS: FUROSEMIDE 40 MG TABLET PO SCH (09:13)
[2020-12-01] MEDS: INSULIN LISPRO 100 UNIT/ML SUBCUT SCH ×2 (09:13→12:30)
[2020-12-01] MEDS: metFORMIN 500 MG TABLET PO SCH (09:13)
[2020-12-01 12:32] VITALS: BP 107/81
== END 2020-12-01 13:42 | disposition home or self-care (01) ==
LOC: N.ED 22:29 → N.EDINP 22:29 → SUATTDRO 11-30 05:28 → N.TELES 11-30 06:16
PROVIDERS: ADMIT Internal Medicine; ATTEND Emergency Medicine

== ENCOUNTER 2021-03-15 20:56 | Inpatient (IN) ==
[2021-03-16 02:33] LABS: Basophils % 0.2 % (0.0-0.8); Eosinophils % 0.5 % (0.00-10.9); Hematocrit 36.5 VOL% (42.0-52.0); Hemoglobin 11.1 GM/DL (14.0-18.0); Immature Granulocytes % 0.7 %; Immature Granulocytes Absolute 0.03 #; Lymphocytes # 0.6 10*3/uL (1.4-4.0); Lymphocytes % 14.4 % (21.2-54.2); Mean Corpuscular HGB Conc 30.4 GM/DL (32-36); Mean Corpuscular Volume 79.2 FL (87-102); Mean Platelet Volume 11.3 FL (9.6-12.0); Monocytes % 5.7 % (1.7-12.7); Neutrophils % 78.5 % (38.7-73.9); Platelet Count 265 T/CUMM (130-400); Red Blood Count 4.61 MC/CUMM (3.8-5.5); Red Cell Distribution Width 19.9 % (9.3-17.3); White Blood Count 4.2 T/CUMM (4-12)
[2021-03-16 03:13] LABS: Alanine Aminotransferase 13 U/L (16-61); Albumin 1.7 G/DL (3.4-5.0); Alkaline Phosphatase 108 U/L (45-117); Aspartate Amino Transferase 22 U/L (0-37); Blood Urea Nitrogen 22 MG/DL (7-18); Carbon Dioxide 28 MMOL/L (21-32); Estimated Glom Filtration Rate 101 ML/MIN; Glucose 213 MG/DL (74-106); Osmolality,Calculated 283.7 MOS/KG (273-304); Potassium 3.2 MMOL/L (3.5-5.1); Sodium 138 MMOL/L (136-145); Total Protein 6.4 G/DL (6.4-8.2)
[2021-03-16 03:14] LABS: Troponin I 0.062 NG/ML (0.00-0.045)
[2021-03-16] MEDS ORDERED: POTASSIUM CHLORIDE 20 MEQ TABLET PO STA (03:19)
[2021-03-16] MEDS ORDERED: ENOXAPARIN 100 MG/ML SYRINGE SUBCUT STA (03:22)
[2021-03-16] MEDS ORDERED: guaiFENesin/DM ER 600-30 MG TABLET PO PRN (05:15)
[2021-03-16] MEDS ORDERED: GLUCAGON 1 MG VIAL IM PRN (05:15)
[2021-03-16] MEDS ORDERED: ACETAMINOPHEN 325 MG TABLET PO PRN (05:15)
[2021-03-16] MEDS ORDERED: DEXTROSE 50% 25 GM/50 ML VIAL IV PRN (05:15)
[2021-03-16] MEDS ORDERED: diphenhydrAMINE CAP 25 MG CAPSULE PO PRN (05:15)
[2021-03-16] MEDS ORDERED: hydrALAZINE 20 MG/1 ML VIAL IV PRN (05:15)
[2021-03-16] MEDS ORDERED: NICOTINE 21 MG/24 HR PATCH TRANSDERM PRN (05:15)
[2021-03-16] MEDS: ONDANSETRON 4 MG/2 ML VIAL IV PRN ×2 (05:36→12:09)
[2021-03-16] MEDS ORDERED: FUROSEMIDE 40 MG/4 ML VIAL IV ONE (06:23)
[2021-03-16] MEDS: ALBUTEROL/IPRATROPIUM 3 ML NEB RESP TX SCH ×3 (06:55→19:10)
[2021-03-16] MEDS: FUROSEMIDE 40 MG/4 ML VIAL IV SCH ×2 (09:00→20:40)
[2021-03-16] MEDS ORDERED: FERROUS SULFATE 325 MG TABLET PO SCH (09:00)
[2021-03-16] MEDS ORDERED: SPIRONOLACTONE 25 MG TABLET PO SCH (09:00)
[2021-03-16] MEDS: INSULIN REGULAR 100 UNIT/ML SUBCUT SCH ×4 (09:17→22:26)
[2021-03-16] MEDS: METOPROLOL SUCCINATE XL 25 MG TABLET PO SCH (10:08)
[2021-03-16] MEDS ORDERED: PROMETHAZINE INJ 25 MG in SODIUM CHLORIDE 0.9% 50 ML IV PRN (12:06)
[2021-03-16] MEDS ORDERED: ALBUMIN 25% 12.5 GM/50 ML VIAL IV ONE ×2 (13:21→14:06)
[2021-03-16] MEDS: ALBUMIN 5% 12.5 GM/250 ML VIAL IV ONE (13:25)
[2021-03-16 15:05] LABS: Hematocrit 37.1 VOL% (42.0-52.0); Hemoglobin 11.8 GM/DL (14.0-18.0)
[2021-03-16] MEDS: SKIN HEALING OINT (AQUAPHOR) 50 GM TUBE TOP SCH (15:10)
[2021-03-16] MEDS: hydrALAZINE 10 MG TABLET PO SCH (20:40)
[2021-03-16] MEDS: ISOSORBIDE DINITRATE 20 MG TABLET PO SCH (20:43)
[2021-03-17] MEDS: ALBUTEROL/IPRATROPIUM 3 ML NEB RESP TX SCH ×4 (00:04→19:30)
[2021-03-17 05:35] LABS: Basophils % 0.3 % (0.0-0.8); Eosinophils % 0.6 % (0.00-10.9); Hematocrit 34.2 VOL% (42.0-52.0); Hemoglobin 10.8 GM/DL (14.0-18.0); Immature Granulocytes % 0.3 %; Immature Granulocytes Absolute 0.01 #; Lymphocytes # 0.5 10*3/uL (1.4-4.0); Lymphocytes % 13.2 % (21.2-54.2); Mean Corpuscular HGB Conc 31.6 GM/DL (32-36); Mean Corpuscular Volume 77.7 FL (87-102); Mean Platelet Volume 11.3 FL (9.6-12.0); Monocytes % 5.7 % (1.7-12.7); Neutrophils % 79.9 % (38.7-73.9); Red Cell Distribution Width 19.5 % (9.3-17.3); White Blood Count 3.5 T/CUMM (4-12)
[2021-03-17 05:49] LABS: Platelet Count 207 T/CUMM (130-400)
[2021-03-17 05:54] LABS: Hypochromasia 1+
[2021-03-17 05:55] LABS: Microcytosis 1+; Polychromasia Slight
[2021-03-17 05:56] LABS: Platelet Estimate Normal; Target Cells Slight
[2021-03-17 06:03] LABS: Alanine Aminotransferase < 9 U/L (16-61); Albumin 1.4 G/DL (3.4-5.0); Alkaline Phosphatase 86 U/L (45-117); Aspartate Amino Transferase 21 U/L (0-37); Blood Urea Nitrogen 18 MG/DL (7-18); Carbon Dioxide 33 MMOL/L (21-32); Estimated Glom Filtration Rate 110 ML/MIN; Glucose 101 MG/DL (74-106); Potassium 3.2 MMOL/L (3.5-5.1); Sodium 143 MMOL/L (136-145)
[2021-03-17 06:32] LABS: Bilirubin,Urine Negative (Negative); Blood, Urine Small mg/dL (Negative); Glucose,Urine (UA) Negative (Negative); Ketones,Urine Negative (Negative); Nitrite,Urine Negative (Negative); Protein,Urine Negative; RBC,Urine 3 /HPF (0-4); Squamous Epithelial Cell,Urine Occasional /HPF (0-10); Urine Appearance CLEAR (Clear); Urine Color Yellow (Yellow); Urine Specific Gravity 1.027 (1.001-1.035)
[2021-03-17 07:00] LABS: Barbiturates Screen,Urine Negative (Negative); Benzodiazepines Screen,Urine Negative (Negative); Cannabinoid Screen,Urine Negative (Negative); Opiate Screen,Urine Negative (Negative); Phencyclidine Screen,Urine Negative (Negative)
[2021-03-17] MEDS ORDERED: POTASSIUM CHLORIDE 20 MEQ TABLET PO ONE (08:26)
[2021-03-17] MEDS: INSULIN REGULAR 100 UNIT/ML SUBCUT SCH ×4 (08:33→20:58)
[2021-03-17] MEDS: FUROSEMIDE 40 MG/4 ML VIAL IV SCH ×2 (09:52→20:58)
[2021-03-17] MEDS: METOPROLOL SUCCINATE XL 25 MG TABLET PO SCH (09:54)
[2021-03-17] MEDS: hydrALAZINE 10 MG TABLET PO SCH ×3 (09:54→22:22)
[2021-03-17] MEDS: ISOSORBIDE DINITRATE 20 MG TABLET PO SCH ×3 (09:54→22:22)
[2021-03-17] MEDS: SKIN HEALING OINT (AQUAPHOR) 50 GM TUBE TOP SCH (14:58)
[2021-03-17] MEDS ORDERED: LORazepam 2 MG/1 ML VIAL IV ONE (15:22)
[2021-03-18] MEDS: ALBUTEROL/IPRATROPIUM 3 ML NEB RESP TX SCH ×4 (01:00→20:12)
[2021-03-18] MEDS: INSULIN REGULAR 100 UNIT/ML SUBCUT SCH ×4 (07:52→20:56)
[2021-03-18] MEDS: ISOSORBIDE DINITRATE 20 MG TABLET PO SCH ×3 (08:19→20:55)
[2021-03-18] MEDS: METOPROLOL SUCCINATE XL 25 MG TABLET PO SCH (08:19)
[2021-03-18] MEDS: hydrALAZINE 10 MG TABLET PO SCH (08:19)
[2021-03-18] MEDS: SKIN HEALING OINT (AQUAPHOR) 50 GM TUBE TOP SCH ×2 (08:25→08:59)
[2021-03-18] MEDS: FUROSEMIDE 40 MG/4 ML VIAL IV SCH ×2 (08:25→20:57)
[2021-03-18] MEDS: ONDANSETRON 4 MG/2 ML VIAL IV PRN (10:03)
[2021-03-18] MEDS: POTASSIUM CHLORIDE 20 MEQ TABLET PO PRN ×3 (14:30→18:53)
[2021-03-19] MEDS: ALBUTEROL/IPRATROPIUM 3 ML NEB RESP TX SCH ×4 (01:04→20:39)
[2021-03-19 06:04] LABS: Calcium 7.4 MG/DL (8.5-10.1); Osmolality,Calculated 274.1 MOS/KG (273-304); Potassium 3.8 MMOL/L (3.5-5.1)
[2021-03-19] MEDS ORDERED: MAGNESIUM SULF RIDER 2 GM/50 ML PREMIX IV PRN (07:22)
[2021-03-19] MEDS ORDERED: MAGNESIUM SULF RIDER 4 GM/100 ML PREMIX IV PRN (07:22)
[2021-03-19] MEDS: METOPROLOL SUCCINATE XL 25 MG TABLET PO SCH (07:59)
[2021-03-19] MEDS: ISOSORBIDE DINITRATE 20 MG TABLET PO SCH ×3 (07:59→20:38)
[2021-03-19] MEDS: FUROSEMIDE 40 MG/4 ML VIAL IV SCH ×2 (09:41→19:36)
[2021-03-19] MEDS: INSULIN REGULAR 100 UNIT/ML SUBCUT SCH ×4 (09:41→20:37)
[2021-03-19] MEDS: LACTULOSE 20 GM/30 ML UDCUP PO SCH ×3 (09:42→20:45)
[2021-03-19] MEDS: SKIN HEALING OINT (AQUAPHOR) 50 GM TUBE TOP SCH (09:42)
[2021-03-20] MEDS: ALBUTEROL/IPRATROPIUM 3 ML NEB RESP TX SCH ×4 (02:50→19:24)
[2021-03-20 06:44] LABS: Basophils % 0.5 % (0.0-0.8); Eosinophils % 0.7 % (0.00-10.9); Hematocrit 32.8 VOL% (42.0-52.0); Hemoglobin 10.1 GM/DL (14.0-18.0); Immature Granulocytes % 0.5 %; Immature Granulocytes Absolute 0.02 #; Lymphocytes # 0.8 10*3/uL (1.4-4.0); Mean Corpuscular HGB Conc 30.8 GM/DL (32-36); Mean Corpuscular Volume 78.5 FL (87-102); Mean Platelet Volume 10.7 FL (9.6-12.0); Monocytes % 6.6 % (1.7-12.7); Neutrophils % 73.7 % (38.7-73.9); Platelet Count 228 T/CUMM (130-400); Red Blood Count 4.18 MC/CUMM (3.8-5.5); Red Cell Distribution Width 18.8 % (9.3-17.3); White Blood Count 4.2 T/CUMM (4-12)
[2021-03-20 07:05] LABS: Calcium 7.4 MG/DL (8.5-10.1); Potassium 3.7 MMOL/L (3.5-5.1)
[2021-03-20] MEDS: LACTULOSE 20 GM/30 ML UDCUP PO SCH ×3 (08:47→20:45)
[2021-03-20] MEDS: METOPROLOL SUCCINATE XL 25 MG TABLET PO SCH (08:47)
[2021-03-20] MEDS: ISOSORBIDE DINITRATE 20 MG TABLET PO SCH ×3 (08:47→20:45)
[2021-03-20] MEDS: FUROSEMIDE 40 MG/4 ML VIAL IV SCH ×2 (08:47→20:45)
[2021-03-20] MEDS ORDERED: LORazepam 2 MG/1 ML VIAL IV PRN (11:06)
[2021-03-20] MEDS: INSULIN REGULAR 100 UNIT/ML SUBCUT SCH ×4 (11:19→21:07)
[2021-03-20] MEDS: MULTIVITAMIN (BEROCCA) TABLET PO SCH (12:40)
[2021-03-20] MEDS: THIAMINE 100 MG TABLET PO SCH (12:56)
[2021-03-20] MEDS: SKIN HEALING OINT (AQUAPHOR) 50 GM TUBE TOP SCH (17:06)
[2021-03-21] MEDS: ALBUTEROL/IPRATROPIUM 3 ML NEB RESP TX SCH ×4 (00:06→19:55)
[2021-03-21 05:38] LABS: Basophils % 0.5 % (0.0-0.8); Eosinophils % 0.5 % (0.00-10.9); Hematocrit 32.5 VOL% (42.0-52.0); Hemoglobin 10.1 GM/DL (14.0-18.0); Immature Granulocytes % 0.2 %; Immature Granulocytes Absolute 0.01 #; Lymphocytes # 0.8 10*3/uL (1.4-4.0); Lymphocytes % 18.5 % (21.2-54.2); Mean Corpuscular HGB Conc 31.1 GM/DL (32-36); Mean Corpuscular Volume 77.9 FL (87-102); Mean Platelet Volume 10.7 FL (9.6-12.0); Monocytes % 6.7 % (1.7-12.7); Neutrophils % 73.6 % (38.7-73.9); Platelet Count 240 T/CUMM (130-400); Red Blood Count 4.17 MC/CUMM (3.8-5.5); Red Cell Distribution Width 18.7 % (9.3-17.3); White Blood Count 4.1 T/CUMM (4-12)
[2021-03-21 05:51] LABS: % Iron Saturation 9.6 % (18-50); Ferritin 59.2 ng/ml (26-388)
[2021-03-21 05:54] LABS: Albumin 1.5 G/DL (3.4-5.0); Bilirubin,Total 0.8 MG/DL (0.2-1.0); Calcium 7.2 MG/DL (8.5-10.1); Osmolality,Calculated 265.2 MOS/KG (273-304); Potassium 3.7 MMOL/L (3.5-5.1); Total Protein 5.2 G/DL (6.4-8.2)
[2021-03-21] MEDS: METOPROLOL SUCCINATE XL 25 MG TABLET PO SCH (09:34)
[2021-03-21] MEDS: LACTULOSE 20 GM/30 ML UDCUP PO SCH ×4 (09:34→20:58)
[2021-03-21] MEDS: MULTIVITAMIN (BEROCCA) TABLET PO SCH (09:34)
[2021-03-21] MEDS: THIAMINE 100 MG TABLET PO SCH (09:34)
[2021-03-21] MEDS: ISOSORBIDE DINITRATE 20 MG TABLET PO SCH ×3 (09:34→20:59)
[2021-03-21] MEDS: SKIN HEALING OINT (AQUAPHOR) 50 GM TUBE TOP SCH (09:35)
[2021-03-21] MEDS: FUROSEMIDE 40 MG/4 ML VIAL IV SCH ×2 (09:35→20:59)
[2021-03-21] MEDS: INSULIN REGULAR 100 UNIT/ML SUBCUT SCH ×4 (11:07→20:59)
[2021-03-21] MEDS: metOLazone 5 MG TABLET PO SCH (16:43)
[2021-03-21] MEDS: ALBUMIN 25% 25 GM/100 ML VIAL IV SCH (16:43)
[2021-03-22] MEDS: ALBUTEROL/IPRATROPIUM 3 ML NEB RESP TX SCH ×4 (00:01→19:35)
[2021-03-22 05:44] LABS: Basophils % 0.4 % (0.0-0.8); Eosinophils % 0.4 % (0.00-10.9); Hematocrit 35.2 VOL% (42.0-52.0); Hemoglobin 10.8 GM/DL (14.0-18.0); Immature Granulocytes % 0.6 %; Immature Granulocytes Absolute 0.03 #; Lymphocytes # 0.8 10*3/uL (1.4-4.0); Lymphocytes % 15.5 % (21.2-54.2); Mean Corpuscular HGB Conc 30.7 GM/DL (32-36); Mean Corpuscular Volume 78.4 FL (87-102); Mean Platelet Volume 11.7 FL (9.6-12.0); Monocytes % 6.5 % (1.7-12.7); Neutrophils % 76.6 % (38.7-73.9); Platelet Count 294 T/CUMM (130-400); Red Blood Count 4.49 MC/CUMM (3.8-5.5); Red Cell Distribution Width 18.8 % (9.3-17.3); White Blood Count 4.9 T/CUMM (4-12)
[2021-03-22 06:06] LABS: Albumin 1.8 G/DL (3.4-5.0); Bilirubin,Total 1.3 MG/DL (0.2-1.0); Calcium 7.6 MG/DL (8.5-10.1); Osmolality,Calculated 263.7 MOS/KG (273-304); Potassium 3.7 MMOL/L (3.5-5.1)
[2021-03-22 06:11] LABS: Folate 13.31 NG/ML (5.38-24.0)
[2021-03-22 06:12] LABS: Eosinophils 1 % (0-10); Lymphocytes 11 % (20-55); Platelet Estimate Normal; Segmented Neutrophils 82 % (50-85); Total Cells Counted 100
[2021-03-22 06:13] LABS: Hypochromasia Slight; Microcytosis 1+; Target Cells Few
[2021-03-22] MEDS: INSULIN REGULAR 100 UNIT/ML SUBCUT SCH ×4 (07:30→20:56)
[2021-03-22] MEDS ORDERED: ERGOCALCIFEROL 50,000 UNIT CAPSULE PO SCH (09:30)
[2021-03-22] MEDS ORDERED: MAGNESIUM SULF RIDER 2 GM/50 ML PREMIX IV ONE (10:00)
[2021-03-22] MEDS: ALBUMIN 25% 25 GM/100 ML VIAL IV SCH ×2 (10:02→16:47)
[2021-03-22] MEDS: SKIN HEALING OINT (AQUAPHOR) 50 GM TUBE TOP SCH (10:07)
[2021-03-22] MEDS: MULTIVITAMIN (BEROCCA) TABLET PO SCH (10:07)
[2021-03-22] MEDS: LACTULOSE 20 GM/30 ML UDCUP PO SCH ×4 (10:07→20:56)
[2021-03-22] MEDS: METOPROLOL SUCCINATE XL 25 MG TABLET PO SCH (10:08)
[2021-03-22] MEDS: ISOSORBIDE DINITRATE 20 MG TABLET PO SCH ×3 (10:08→20:56)
[2021-03-22] MEDS: THIAMINE 100 MG TABLET PO SCH (10:08)
[2021-03-22] MEDS: metOLazone 5 MG TABLET PO SCH (10:12)
[2021-03-22] MEDS: FERROUS SULFATE 325 MG TABLET PO SCH ×2 (10:12→18:10)
[2021-03-22] MEDS: FUROSEMIDE 40 MG/4 ML VIAL IV SCH ×2 (11:39→18:11)
[2021-03-22] MEDS: ONDANSETRON 4 MG/2 ML VIAL IV PRN (13:26)
[2021-03-22] MEDS: ALFUZOSIN 10 MG TABLET PO SCH (20:56)
[2021-03-23] MEDS: ALBUTEROL/IPRATROPIUM 3 ML NEB RESP TX SCH ×4 (01:30→19:36)
[2021-03-23 05:27] LABS: Basophils % 0.5 % (0.0-0.8); Hematocrit 28.9 VOL% (42.0-52.0); Hemoglobin 9.3 GM/DL (14.0-18.0); Immature Granulocytes % 0.2 %; Immature Granulocytes Absolute 0.01 #; Lymphocytes # 0.6 10*3/uL (1.4-4.0); Lymphocytes % 14.5 % (21.2-54.2); Mean Corpuscular HGB Conc 32.2 GM/DL (32-36); Mean Corpuscular Volume 75.3 FL (87-102); Mean Platelet Volume 11.1 FL (9.6-12.0); Monocytes % 6.7 % (1.7-12.7); Neutrophils % 77.1 % (38.7-73.9); Platelet Count 243 T/CUMM (130-400); Red Blood Count 3.84 MC/CUMM (3.8-5.5); Red Cell Distribution Width 18.6 % (9.3-17.3); White Blood Count 4.2 T/CUMM (4-12)
[2021-03-23 05:51] LABS: % Iron Saturation 5.9 % (18-50); Calcium 7.7 MG/DL (8.5-10.1); Ferritin 66.1 ng/ml (26-388); Osmolality,Calculated 269.5 MOS/KG (273-304); Potassium 3.8 MMOL/L (3.5-5.1)
[2021-03-23 05:56] LABS: Hypochromasia 1+
[2021-03-23 05:57] LABS: Acanthocytes Few; Microcytosis 1+; Ovalocytes Few; Platelet Estimate Normal; Target Cells Few
[2021-03-23] MEDS: ALBUMIN 25% 25 GM/100 ML VIAL IV SCH ×2 (08:16→17:57)
[2021-03-23] MEDS: INSULIN REGULAR 100 UNIT/ML SUBCUT SCH ×3 (08:17→15:25)
[2021-03-23] MEDS: FERROUS SULFATE 325 MG TABLET PO SCH ×2 (08:20→17:57)
[2021-03-23] MEDS: MULTIVITAMIN (BEROCCA) TABLET PO SCH (08:20)
[2021-03-23] MEDS: THIAMINE 100 MG TABLET PO SCH (08:21)
[2021-03-23] MEDS: ISOSORBIDE DINITRATE 20 MG TABLET PO SCH ×3 (08:21→21:42)
[2021-03-23] MEDS: METOPROLOL SUCCINATE XL 25 MG TABLET PO SCH (08:21)
[2021-03-23] MEDS: metOLazone 5 MG TABLET PO SCH (08:22)
[2021-03-23] MEDS: SKIN HEALING OINT (AQUAPHOR) 50 GM TUBE TOP SCH (09:37)
[2021-03-23] MEDS: FUROSEMIDE 40 MG/4 ML VIAL IV SCH ×2 (09:37→19:30)
[2021-03-23] MEDS: LACTULOSE 20 GM/30 ML UDCUP PO SCH ×4 (10:20→21:43)
[2021-03-23] MEDS: ONDANSETRON 4 MG/2 ML VIAL IV PRN (14:48)
[2021-03-23] MEDS: ALFUZOSIN 10 MG TABLET PO SCH (21:42)
[2021-03-24] MEDS: INSULIN REGULAR 100 UNIT/ML SUBCUT SCH ×5 (00:16→21:39)
[2021-03-24] MEDS: ALBUTEROL/IPRATROPIUM 3 ML NEB RESP TX SCH ×4 (01:20→19:52)
[2021-03-24 06:49] LABS: Basophils % 0.3 % (0.0-0.8); Eosinophils % 0.9 % (0.00-10.9); Hematocrit 28.4 VOL% (42.0-52.0); Hemoglobin 9.3 GM/DL (14.0-18.0); Immature Granulocytes % 0.3 %; Immature Granulocytes Absolute 0.01 #; Lymphocytes # 0.4 10*3/uL (1.4-4.0); Lymphocytes % 12.8 % (21.2-54.2); Mean Corpuscular HGB Conc 32.7 GM/DL (32-36); Mean Corpuscular Volume 74.7 FL (87-102); Mean Platelet Volume 10.9 FL (9.6-12.0); Monocytes % 9.2 % (1.7-12.7); Neutrophils % 76.5 % (38.7-73.9); Platelet Count 246 T/CUMM (130-400); Red Cell Distribution Width 18.5 % (9.3-17.3); White Blood Count 3.4 T/CUMM (4-12)
[2021-03-24 07:08] LABS: INR 1.1; PT Patient Result 11.7 SECS (10.5-12.0); Partial Thromboplastin Time 30.2 SECS (23.9-33.8)
[2021-03-24 07:31] LABS: Albumin 2.3 G/DL (3.4-5.0); Bilirubin,Total 2.6 MG/DL (0.2-1.0); Calcium 8.3 MG/DL (8.5-10.1); Osmolality,Calculated 262.8 MOS/KG (273-304); Total Protein 5.4 G/DL (6.4-8.2)
[2021-03-24] MEDS: metOLazone 5 MG TABLET PO SCH (09:07)
[2021-03-24] MEDS: THIAMINE 100 MG TABLET PO SCH (09:07)
[2021-03-24] MEDS: METOPROLOL SUCCINATE XL 25 MG TABLET PO SCH (09:07)
[2021-03-24] MEDS: FERROUS SULFATE 325 MG TABLET PO SCH ×2 (09:07→16:05)
[2021-03-24] MEDS: MULTIVITAMIN (BEROCCA) TABLET PO SCH (09:07)
[2021-03-24] MEDS: LACTULOSE 20 GM/30 ML UDCUP PO SCH ×4 (09:07→21:39)
[2021-03-24] MEDS: ISOSORBIDE DINITRATE 20 MG TABLET PO SCH ×3 (09:07→21:40)
[2021-03-24] MEDS: FUROSEMIDE 40 MG/4 ML VIAL IV SCH ×2 (09:08→15:46)
[2021-03-24] MEDS: SKIN HEALING OINT (AQUAPHOR) 50 GM TUBE TOP SCH (09:08)
[2021-03-24] MEDS: ALBUMIN 25% 25 GM/100 ML VIAL IV SCH (09:08)
[2021-03-24] MEDS ORDERED: ALBUMIN 25% 12.5 GM/50 ML VIAL IV ONE (13:25)
[2021-03-24] MEDS: ALFUZOSIN 10 MG TABLET PO SCH (21:40)
[2021-03-25] MEDS: ALBUTEROL/IPRATROPIUM 3 ML NEB RESP TX SCH ×4 (00:22→19:08)
[2021-03-25 06:28] LABS: Basophils % 0.7 % (0.0-0.8); Eosinophils % 0.4 % (0.00-10.9); Hematocrit 30.2 VOL% (42.0-52.0); Hemoglobin 9.5 GM/DL (14.0-18.0); Lymphocytes # 0.4 10*3/uL (1.4-4.0); Lymphocytes % 14.5 % (21.2-54.2); Mean Corpuscular HGB Conc 31.5 GM/DL (32-36); Mean Corpuscular Volume 76.5 FL (87-102); Mean Platelet Volume 11.1 FL (9.6-12.0); Monocytes % 10.5 % (1.7-12.7); Neutrophils % 73.9 % (38.7-73.9); Platelet Count 241 T/CUMM (130-400); Red Blood Count 3.95 MC/CUMM (3.8-5.5); Red Cell Distribution Width 18.5 % (9.3-17.3); White Blood Count 2.8 T/CUMM (4-12)
[2021-03-25 06:50] LABS: Albumin 2.3 G/DL (3.4-5.0); Bilirubin,Total 0.7 MG/DL (0.2-1.0); Calcium 8.3 MG/DL (8.5-10.1); Osmolality,Calculated 267.7 MOS/KG (273-304); Potassium 4.1 MMOL/L (3.5-5.1); Total Protein 5.4 G/DL (6.4-8.2)
[2021-03-25] MEDS: INSULIN REGULAR 100 UNIT/ML SUBCUT SCH ×4 (07:54→20:50)
[2021-03-25] MEDS: SKIN HEALING OINT (AQUAPHOR) 50 GM TUBE TOP SCH (09:02)
[2021-03-25] MEDS: LACTULOSE 20 GM/30 ML UDCUP PO SCH ×4 (09:02→20:49)
[2021-03-25] MEDS: ISOSORBIDE DINITRATE 20 MG TABLET PO SCH ×3 (09:02→20:49)
[2021-03-25] MEDS: THIAMINE 100 MG TABLET PO SCH (09:02)
[2021-03-25] MEDS: MULTIVITAMIN (BEROCCA) TABLET PO SCH (09:02)
[2021-03-25] MEDS: METOPROLOL SUCCINATE XL 25 MG TABLET PO SCH (10:05)
[2021-03-25] MEDS: FERROUS SULFATE 325 MG TABLET PO SCH ×2 (10:05→17:28)
[2021-03-25] MEDS: FUROSEMIDE 40 MG/4 ML VIAL IV SCH (11:02)
[2021-03-25] MEDS: FUROSEMIDE 20 MG TABLET PO SCH (15:22)
[2021-03-25] MEDS: ALFUZOSIN 10 MG TABLET PO SCH (20:49)
[2021-03-26] MEDS: ALBUTEROL/IPRATROPIUM 3 ML NEB RESP TX SCH ×4 (00:39→19:11)
[2021-03-26 05:11] LABS: Eosinophils % 0.7 % (0.00-10.9); Hematocrit 30.4 VOL% (42.0-52.0); Hemoglobin 9.8 GM/DL (14.0-18.0); Immature Granulocytes % 0.7 %; Immature Granulocytes Absolute 0.02 #; Lymphocytes # 0.6 10*3/uL (1.4-4.0); Lymphocytes % 19.3 % (21.2-54.2); Mean Corpuscular HGB Conc 32.2 GM/DL (32-36); Mean Corpuscular Volume 75.2 FL (87-102); Mean Platelet Volume 11.4 FL (9.6-12.0); Monocytes % 12.1 % (1.7-12.7); Neutrophils % 66.2 % (38.7-73.9); Platelet Count 236 T/CUMM (130-400); Red Blood Count 4.04 MC/CUMM (3.8-5.5); Red Cell Distribution Width 18.5 % (9.3-17.3); White Blood Count 2.9 T/CUMM (4-12)
[2021-03-26 05:45] LABS: Albumin 2.4 G/DL (3.4-5.0); Bilirubin,Total 0.9 MG/DL (0.2-1.0); Calcium 8.3 MG/DL (8.5-10.1); Osmolality,Calculated 268.4 MOS/KG (273-304); Total Protein 5.6 G/DL (6.4-8.2)
[2021-03-26 06:49] LABS: Acanthocytes Few; Anisocytosis 2+; Band Neutrophils 1 % (0-10); Burr Cells Few; Eosinophils 1 % (0-10); Lymphocytes 17 % (20-55); Macrocytosis 1+; Ovalocytes Few; Platelet Estimate Normal; Poikilocytosis 1+; Segmented Neutrophils 68 % (50-85); Total Cells Counted 100
[2021-03-26 06:50] LABS: Tear Drop Cells Few
[2021-03-26] MEDS: INSULIN REGULAR 100 UNIT/ML SUBCUT SCH ×4 (08:27→23:18)
[2021-03-26] MEDS ORDERED: MAGNESIUM SULFATE 1 GM/2 ML VIAL IM ONE (09:00)
[2021-03-26] MEDS: ISOSORBIDE DINITRATE 20 MG TABLET PO SCH ×3 (10:10→20:23)
[2021-03-26] MEDS: METOPROLOL SUCCINATE XL 25 MG TABLET PO SCH (10:10)
[2021-03-26] MEDS: FERROUS SULFATE 325 MG TABLET PO SCH ×2 (10:10→16:50)
[2021-03-26] MEDS: FUROSEMIDE 20 MG TABLET PO SCH ×2 (10:10→15:53)
[2021-03-26] MEDS: MULTIVITAMIN (BEROCCA) TABLET PO SCH (10:10)
[2021-03-26] MEDS: THIAMINE 100 MG TABLET PO SCH (10:10)
[2021-03-26] MEDS: SKIN HEALING OINT (AQUAPHOR) 50 GM TUBE TOP SCH (10:11)
[2021-03-26] MEDS: LACTULOSE 20 GM/30 ML UDCUP PO SCH ×4 (10:11→20:22)
[2021-03-26] MEDS ORDERED: MAGNESIUM SULF RIDER 2 GM/50 ML PREMIX IV ONE (11:08)
[2021-03-26] MEDS: ALFUZOSIN 10 MG TABLET PO SCH (20:23)
[2021-03-27] MEDS: ALBUTEROL/IPRATROPIUM 3 ML NEB RESP TX SCH ×2 (00:07→07:35)
[2021-03-27 06:18] LABS: Basophils % 0.9 % (0.0-0.8); Eosinophils % 0.9 % (0.00-10.9); Hematocrit 30.3 VOL% (42.0-52.0); Hemoglobin 9.8 GM/DL (14.0-18.0); Immature Granulocytes % 0.3 %; Immature Granulocytes Absolute 0.01 #; Lymphocytes # 0.6 10*3/uL (1.4-4.0); Lymphocytes % 17.4 % (21.2-54.2); Mean Corpuscular HGB Conc 32.3 GM/DL (32-36); Mean Corpuscular Volume 75.9 FL (87-102); Mean Platelet Volume 10.7 FL (9.6-12.0); Neutrophils % 69.5 % (38.7-73.9); Platelet Count 224 T/CUMM (130-400); Red Blood Count 3.99 MC/CUMM (3.8-5.5); Red Cell Distribution Width 18.7 % (9.3-17.3); White Blood Count 3.2 T/CUMM (4-12)
[2021-03-27 06:38] LABS: Lymphocytes 24 % (20-55); Segmented Neutrophils 66 % (50-85); Total Cells Counted 100
[2021-03-27 06:39] LABS: Anisocytosis 1+; Hypochromasia 2+; Platelet Estimate Normal
[2021-03-27 06:47] LABS: Calcium 8.2 MG/DL (8.5-10.1); Osmolality,Calculated 271.1 MOS/KG (273-304)
[2021-03-27] MEDS: FERROUS SULFATE 325 MG TABLET PO SCH (10:10)
[2021-03-27] MEDS: INSULIN REGULAR 100 UNIT/ML SUBCUT SCH ×2 (10:10→12:33)
[2021-03-27] MEDS: METOPROLOL SUCCINATE XL 25 MG TABLET PO SCH (10:10)
[2021-03-27] MEDS: MULTIVITAMIN (BEROCCA) TABLET PO SCH (10:10)
[2021-03-27] MEDS: FUROSEMIDE 20 MG TABLET PO SCH (10:10)
[2021-03-27] MEDS: ISOSORBIDE DINITRATE 20 MG TABLET PO SCH (10:10)
[2021-03-27] MEDS: THIAMINE 100 MG TABLET PO SCH (10:10)
[2021-03-27] MEDS: LACTULOSE 20 GM/30 ML UDCUP PO SCH ×2 (10:10→15:27)
[2021-03-27] MEDS: SKIN HEALING OINT (AQUAPHOR) 50 GM TUBE TOP SCH (10:16)
[2021-03-27 12:39] VITALS: BP 100/72
== END 2021-03-27 17:30 | disposition home or self-care (01) | DRG 292 ==
LOC: N.ED 20:56 → N.EDINP 20:56 → SUATTDRO 03-16 05:15 → N.EDINP 03-16 06:38 → N.3E 03-16 06:50 → SUATTDRO 03-17 12:09
PROVIDERS: ADMIT Internal Medicine; ATTEND Internal Medicine

== ENCOUNTER 2021-04-05 04:04 | Observation (INO) ==
[2021-04-05] MEDS ORDERED: ALBUTEROL/IPRATROPIUM 3 ML NEB RESP TX STA (04:26)
[2021-04-05] MEDS ORDERED: methylPREDNISolone SOD SUC 125 MG/2 ML VIAL IV STA (04:26)
[2021-04-05] MEDS ORDERED: ONDANSETRON 4 MG/2 ML VIAL IV STA (04:26)
[2021-04-05] MEDS ORDERED: FUROSEMIDE 40 MG/4 ML VIAL IV STA (04:26)
[2021-04-05 04:56] LABS: Basophils % 0.5 % (0.0-0.8); Eosinophils % 0.8 % (0.00-10.9); Hematocrit 32.9 VOL% (42.0-52.0); Hemoglobin 10.3 GM/DL (14.0-18.0); Immature Granulocytes % 0.5 %; Immature Granulocytes Absolute 0.02 #; Lymphocytes # 0.8 10*3/uL (1.4-4.0); Lymphocytes % 20.5 % (21.2-54.2); Mean Corpuscular HGB Conc 31.3 GM/DL (32-36); Mean Corpuscular Volume 78.5 FL (87-102); Mean Platelet Volume 10.6 FL (9.6-12.0); Neutrophils % 71.7 % (38.7-73.9); Platelet Count 260 T/CUMM (130-400); Red Blood Count 4.19 MC/CUMM (3.8-5.5); Red Cell Distribution Width 19.6 % (9.3-17.3)
[2021-04-05 05:04] LABS: PT Patient Result 11.6 SECS (10.5-12.0)
[2021-04-05 05:15] LABS: Acanthocytes Few; Anisocytosis 1+; Hypochromasia 2+; Microcytosis 1+; Ovalocytes Few
[2021-04-05 05:16] LABS: Alanine Aminotransferase 27 U/L (16-61); Albumin 2.5 G/DL (3.4-5.0); Alkaline Phosphatase 149 U/L (45-117); Aspartate Amino Transferase 28 U/L (0-37); Blood Urea Nitrogen 25 MG/DL (7-18); Calcium 7.7 MG/DL (8.5-10.1); Carbon Dioxide 27 MMOL/L (21-32); Estimated Glom Filtration Rate 99 ML/MIN; Glucose 166 MG/DL (74-106); Osmolality,Calculated 288.3 MOS/KG (273-304); Platelet Estimate Normal; Sodium 141 MMOL/L (136-145); Total Protein 6.3 G/DL (6.4-8.2)
[2021-04-05] MEDS ORDERED: MAGNESIUM SULF RIDER 2 GM/50 ML PREMIX IV STA (05:25)
[2021-04-05] MEDS ORDERED: GLUCAGON 1 MG VIAL IM PRN (05:36)
[2021-04-05] MEDS ORDERED: hydrALAZINE 20 MG/1 ML VIAL IV PRN (05:36)
[2021-04-05] MEDS ORDERED: DOCUSATE SODIUM 100 MG CAPSULE PO PRN (05:36)
[2021-04-05] MEDS ORDERED: DEXTROSE 50% 25 GM/50 ML VIAL IV PRN (05:36)
[2021-04-05] MEDS ORDERED: ACETAMINOPHEN 325 MG TABLET PO PRN (05:36)
[2021-04-05] MEDS ORDERED: MAGNESIUM SULF RIDER 4 GM/100 ML PREMIX IV PRN (05:39)
[2021-04-05] MEDS ORDERED: MAGNESIUM SULF RIDER 2 GM/50 ML PREMIX IV PRN (05:39)
[2021-04-05] MEDS ORDERED: ERGOCALCIFEROL 50,000 UNIT CAPSULE PO SCH (06:00)
[2021-04-05 06:16] LABS: Bilirubin,Urine Negative (Negative); Blood, Urine Small mg/dL (Negative); Glucose,Urine (UA) Negative (Negative); Ketones,Urine Negative (Negative); Mucus,Urine Occasional /LPF (Occasional); Nitrite,Urine Negative (Negative); Protein,Urine Negative; RBC,Urine <1 /HPF (0-4); Squamous Epithelial Cell,Urine Occasional /HPF (0-10); Urine Appearance CLEAR (Clear); Urine Color Yellow (Yellow); Urine Specific Gravity 1.009 (1.001-1.035); Urine Urobilinogen < 2.0 EU/DL (0.2-1.0)
[2021-04-05 06:21] LABS: Barbiturates Screen,Urine Negative (Negative); Benzodiazepines Screen,Urine Negative (Negative); Cannabinoid Screen,Urine Negative (Negative); Opiate Screen,Urine Negative (Negative); Phencyclidine Screen,Urine Negative (Negative)
[2021-04-05] MEDS: INSULIN LISPRO 100 UNIT/ML SUBCUT SCH ×4 (08:10→21:17)
[2021-04-05] MEDS: LACTULOSE 20 GM/30 ML UDCUP PO SCH ×5 (09:20→21:24)
[2021-04-05] MEDS: FERROUS SULFATE 325 MG TABLET PO SCH ×2 (09:20→21:16)
[2021-04-05] MEDS: ISOSORBIDE DINITRATE 20 MG TABLET PO SCH ×3 (09:20→21:16)
[2021-04-05] MEDS: METOPROLOL SUCCINATE XL 25 MG TABLET PO SCH (09:20)
[2021-04-05] MEDS: MULTIVITAMIN (BEROCCA) TABLET PO SCH (09:20)
[2021-04-05] MEDS: THIAMINE 100 MG TABLET PO SCH (09:20)
[2021-04-05] MEDS: FUROSEMIDE 40 MG/4 ML VIAL IV SCH ×2 (09:25→18:21)
[2021-04-05] MEDS: ONDANSETRON 4 MG/2 ML VIAL IV PRN ×2 (09:35→15:55)
[2021-04-05] MEDS: MORPHINE 4 MG/1 ML VIAL IV PRN ×2 (09:35→15:55)
[2021-04-05] MEDS ORDERED: ALBUMIN 25% 12.5 GM/50 ML VIAL IV ONE (14:41)
[2021-04-05] MEDS ORDERED: TISSUE ADHESIVE 1 EACH APPLICATOR TOP ONE (14:49)
[2021-04-05] MEDS: SKIN HEALING OINT (AQUAPHOR) 50 GM TUBE TOP SCH (17:35)
[2021-04-06 06:09] LABS: Basophils % 0.1 % (0.0-0.8); Hematocrit 30.5 VOL% (42.0-52.0); Hemoglobin 9.4 GM/DL (14.0-18.0); Immature Granulocytes % 0.4 %; Immature Granulocytes Absolute 0.03 #; Lymphocytes # 0.7 10*3/uL (1.4-4.0); Lymphocytes % 9.3 % (21.2-54.2); Mean Corpuscular HGB Conc 30.8 GM/DL (32-36); Mean Corpuscular Volume 79.8 FL (87-102); Mean Platelet Volume 10.7 FL (9.6-12.0); Monocytes % 5.5 % (1.7-12.7); Neutrophils % 84.7 % (38.7-73.9); Platelet Count 227 T/CUMM (130-400); Red Blood Count 3.82 MC/CUMM (3.8-5.5); Red Cell Distribution Width 19.4 % (9.3-17.3)
[2021-04-06 07:08] LABS: Albumin 2.1 G/DL (3.4-5.0); Bilirubin,Total 0.5 MG/DL (0.2-1.0); Calcium 8.3 MG/DL (8.5-10.1); Osmolality,Calculated 281.7 MOS/KG (273-304); Potassium 4.9 MMOL/L (3.5-5.1); Total Protein 5.9 G/DL (6.4-8.2)
[2021-04-06] MEDS ORDERED: ALFUZOSIN 10 MG TABLET PO SCH (09:00)
[2021-04-06] MEDS ORDERED: glipiZIDE 5 MG TABLET PO SCH (09:00)
[2021-04-06] MEDS: MULTIVITAMIN (BEROCCA) TABLET PO SCH (09:24)
[2021-04-06] MEDS: METOPROLOL SUCCINATE XL 25 MG TABLET PO SCH (09:24)
[2021-04-06] MEDS: ISOSORBIDE DINITRATE 20 MG TABLET PO SCH ×2 (09:24→14:11)
[2021-04-06] MEDS: THIAMINE 100 MG TABLET PO SCH (09:24)
[2021-04-06] MEDS: FUROSEMIDE 40 MG/4 ML VIAL IV SCH ×2 (09:25→15:43)
[2021-04-06] MEDS: FERROUS SULFATE 325 MG TABLET PO SCH (09:25)
[2021-04-06] MEDS: INSULIN LISPRO 100 UNIT/ML SUBCUT SCH ×2 (09:28→11:36)
[2021-04-06] MEDS: LACTULOSE 20 GM/30 ML UDCUP PO SCH ×2 (09:29→14:11)
[2021-04-06] MEDS: SKIN HEALING OINT (AQUAPHOR) 50 GM TUBE TOP SCH (09:33)
[2021-04-06 11:30] VITALS: BP 100/70
[2021-04-06] MEDS ORDERED: TUBERCULIN SKIN TEST 0.1 ML SYRINGE INTRADERM ONE (15:00)
[2021-04-06] MEDS ORDERED: GABAPENTIN 100 MG CAPSULE PO SCH (21:00)
== END 2021-04-06 15:58 ==
LOC: EDBD → SUATTDRO → EDUNIT# → N.EDINP 04:04 → N.ED 04:04 → N.EDINP 16:50 → N.5E 17:25
PROVIDERS: ADMIT Internal Medicine; ATTEND Internal Medicine

== ENCOUNTER 2022-04-03 15:35 | Inpatient (IN) ==
[2022-04-03] MEDS ORDERED: SODIUM CHLORIDE 0.9% 500 ML IV STA (15:45)
[2022-04-03 16:07] LABS: Basophils % 0.4 % (0.0-0.8); Eosinophils % 0.9 % (0.00-10.9); Hematocrit 35.6 VOL% (42.0-52.0); Hemoglobin 11.4 GM/DL (14.0-18.0); Immature Granulocytes % 0.7 %; Immature Granulocytes Absolute 0.03 #; Lymphocytes % 21.9 % (21.2-54.2); Mean Corpuscular Volume 84.2 FL (87-102); Mean Platelet Volume 12.6 FL (9.6-12.0); Monocytes # 0.3 10*3/uL (0.11-0.8); Monocytes % 7.6 % (1.7-12.7); Neutrophils % 68.5 % (38.7-73.9); Platelet Count 184 T/CUMM (130-400); Red Blood Count 4.23 MC/CUMM (3.8-5.5); Red Cell Distribution Width 14.5 % (9.3-17.3); White Blood Count 4.5 T/CUMM (4-12)
[2022-04-03 16:28] LABS: Albumin 3.6 G/DL (3.4-5.0); Bilirubin,Total 0.6 MG/DL (0.20-1.00); Osmolality,Calculated 283.2 MOS/KG (273-304); Potassium 4.9 MMOL/L (3.5-5.1); Total Protein 8.4 G/DL (6.4-8.2)
[2022-04-03] MEDS ORDERED: SODIUM CHLORIDE 0.9% 1,000 ML IV STA (16:36)
[2022-04-03 18:23] LABS: Bacteria,Urine Occasional /HPF (Few); Hyaline Casts,Urine 43 /LPF (0-3); Mucus,Urine Occasional /LPF (Occasional); RBC,Urine 2 /HPF (0-4); Squamous Epithelial Cell,Urine Occasional /HPF (0-10)
[2022-04-03 18:24] LABS: Bilirubin,Urine Negative (Negative); Blood, Urine Trace mg/dL (Negative); Glucose,Urine (UA) 100 mg/dL (Negative); Ketones,Urine Negative (Negative); Nitrite,Urine Negative (Negative); Protein,Urine >=300 mg/dL (Negative); Urine Appearance Slightly Cloudy (Clear); Urine Color Yellow (Yellow); Urine Specific Gravity 1.025 (1.001-1.035); Urine Urobilinogen 0.2 eU/dL (<2.0)
[2022-04-03 18:36] LABS: Barbiturates Screen,Urine Negative (Negative); Benzodiazepines Screen,Urine Positive (Negative); Cannabinoid Screen,Urine Negative (Negative); Opiate Screen,Urine Positive (Negative); Phencyclidine Screen,Urine Negative (Negative)
[2022-04-03] MEDS ORDERED: GLUCAGON 1 MG VIAL IM PRN (19:41)
[2022-04-03] MEDS ORDERED: hydrALAZINE 20 MG/1 ML VIAL IV PRN (19:41)
[2022-04-03] MEDS ORDERED: ALUMINUM/MAGNES/SIMETH MAX STR 30 ML UDCUP PO PRN (19:46)
[2022-04-03] MEDS ORDERED: ACETAMINOPHEN 325 MG TABLET PO PRN (19:46)
[2022-04-03] MEDS ORDERED: HALOPERIDOL 5 MG/ML AMP IM PRN (19:49)
[2022-04-03] MEDS ORDERED: LORazepam 2 MG/1 ML VIAL IV PRN (19:50)
[2022-04-03] MEDS ORDERED: DEXTROSE 10% 250 ML BAG IV PRN (20:01)
[2022-04-03] MEDS ORDERED: GABAPENTIN 600 MG TABLET PO SCH (21:00)
[2022-04-03] MEDS: INSULIN GLARGINE 100 UNIT/ML SUBCUT SCH (21:00)
[2022-04-03] MEDS: OXcarbazepine 300 MG TABLET PO SCH (21:00)
[2022-04-03] MEDS: LACTULOSE 20 GM/30 ML UDCUP PO SCH (22:40)
[2022-04-03] MEDS: FERROUS SULFATE 325 MG TABLET PO SCH (22:40)
[2022-04-03] MEDS: ISOSORBIDE DINITRATE 20 MG TABLET PO SCH (22:40)
[2022-04-03] MEDS: INSULIN LISPRO 100 UNIT/ML SUBCUT SCH (22:50)
[2022-04-03] MEDS: ENOXAPARIN 30 MG/0.3 ML SYRINGE SUBCUT SCH (23:00)
[2022-04-04 05:41] LABS: Basophils % 0.3 % (0.0-0.8); Eosinophils # 0.1 10*3/uL (0.0-0.87); Eosinophils % 1.7 % (0.00-10.9); Hematocrit 34.7 VOL% (42.0-52.0); Immature Granulocytes % 0.3 %; Immature Granulocytes Absolute 0.02 #; Lymphocytes # 1.1 10*3/uL (1.4-4.0); Lymphocytes % 18.5 % (21.2-54.2); Mean Corpuscular HGB Conc 31.7 GM/DL (32-36); Mean Corpuscular Volume 84.2 FL (87-102); Mean Platelet Volume 11.9 FL (9.6-12.0); Monocytes # 0.5 10*3/uL (0.11-0.8); Neutrophils % 71.2 % (38.7-73.9); Platelet Count 155 T/CUMM (130-400); Red Blood Count 4.12 MC/CUMM (3.8-5.5); Red Cell Distribution Width 14.4 % (9.3-17.3); White Blood Count 5.7 T/CUMM (4-12)
[2022-04-04 06:08] LABS: Albumin 2.9 G/DL (3.4-5.0); Bilirubin,Direct 0.15 MG/DL (0.0-0.20); Bilirubin,Indirect 0.3 MG/DL (0.0-1.0); Bilirubin,Total 0.4 MG/DL (0.20-1.00); Calcium 8.7 MG/DL (8.5-10.1); Potassium 5.7 MMOL/L (3.5-5.1); Thyroid Stimulating Hormone 0.887 uIU/ml (0.358-3.74); Total Protein 7.2 G/DL (6.4-8.2)
[2022-04-04] MEDS ORDERED: SODIUM POLYSTYRENE SULFATE 15 GM/60 ML BOTTLE PO STA (08:11)
[2022-04-04] MEDS ORDERED: SODIUM CHLORIDE 0.9% 1,000 ML IV SCH (08:30)
[2022-04-04] MEDS ORDERED: NEBIVOLOL 5 MG TABLET PO SCH (09:00)
[2022-04-04] MEDS: OXcarbazepine 300 MG TABLET PO SCH ×2 (09:15→20:30)
[2022-04-04] MEDS: OLMESARTAN 5 MG TABLET PO SCH (09:15)
[2022-04-04] MEDS: FLUTICASONE 50 MCG NASAL SPRAY 16 GM BOTTLE BOTH NARES SCH (09:15)
[2022-04-04] MEDS: LACTULOSE 20 GM/30 ML UDCUP PO SCH ×2 (09:15→20:30)
[2022-04-04] MEDS: ALFUZOSIN 10 MG TABLET PO SCH (09:15)
[2022-04-04] MEDS: CITALOPRAM 20 MG TABLET PO SCH (09:15)
[2022-04-04] MEDS: FERROUS SULFATE 325 MG TABLET PO SCH ×2 (09:15→20:31)
[2022-04-04] MEDS: INSULIN LISPRO 100 UNIT/ML SUBCUT SCH ×4 (09:15→20:31)
[2022-04-04] MEDS: ASPIRIN EC 81 MG TABLET PO SCH (09:15)
[2022-04-04] MEDS: PANTOPRAZOLE 40 MG TABLET PO SCH (09:15)
[2022-04-04] MEDS: MULTIVITAMIN (BEROCCA) TABLET PO SCH (09:15)
[2022-04-04] MEDS: ISOSORBIDE DINITRATE 20 MG TABLET PO SCH ×3 (09:15→20:31)
[2022-04-04] MEDS ORDERED: DIAZEPAM 5 MG TABLET PO ONE (13:00)
[2022-04-04] MEDS: ENOXAPARIN 30 MG/0.3 ML SYRINGE SUBCUT SCH (20:31)
[2022-04-04] MEDS: INSULIN GLARGINE 100 UNIT/ML SUBCUT SCH (20:32)
[2022-04-05 05:03] LABS: Basophils % 0.4 % (0.0-0.8); Eosinophils # 0.1 10*3/uL (0.0-0.87); Eosinophils % 1.6 % (0.00-10.9); Hematocrit 35.1 VOL% (42.0-52.0); Hemoglobin 11.3 GM/DL (14.0-18.0); Immature Granulocytes % 0.4 %; Immature Granulocytes Absolute 0.03 #; Lymphocytes # 1.4 10*3/uL (1.4-4.0); Lymphocytes % 20.2 % (21.2-54.2); Mean Corpuscular HGB Conc 32.2 GM/DL (32-36); Mean Corpuscular Volume 83.4 FL (87-102); Mean Platelet Volume 12.9 FL (9.6-12.0); Monocytes # 0.6 10*3/uL (0.11-0.8); Neutrophils % 69.4 % (38.7-73.9); Platelet Count 157 T/CUMM (130-400); Red Blood Count 4.21 MC/CUMM (3.8-5.5); Red Cell Distribution Width 14.3 % (9.3-17.3); White Blood Count 6.8 T/CUMM (4-12)
[2022-04-05 05:28] LABS: Calcium 9.3 MG/DL (8.5-10.1); Osmolality,Calculated 284.8 MOS/KG (273-304); Potassium 4.5 MMOL/L (3.5-5.1)
[2022-04-05] MEDS: INSULIN LISPRO 100 UNIT/ML SUBCUT SCH ×2 (08:38→12:11)
[2022-04-05] MEDS ORDERED: NEBIVOLOL 10 MG TABLET PO SCH (09:00)
[2022-04-05] MEDS ORDERED: SPIRONOLACTONE 25 MG TABLET PO SCH (09:00)
[2022-04-05] MEDS: OXcarbazepine 300 MG TABLET PO SCH (09:18)
[2022-04-05] MEDS: ALFUZOSIN 10 MG TABLET PO SCH (09:19)
[2022-04-05] MEDS: MULTIVITAMIN (BEROCCA) TABLET PO SCH (09:20)
[2022-04-05] MEDS: OLMESARTAN 5 MG TABLET PO SCH (09:20)
[2022-04-05] MEDS: FERROUS SULFATE 325 MG TABLET PO SCH (09:20)
[2022-04-05] MEDS: PANTOPRAZOLE 40 MG TABLET PO SCH (09:20)
[2022-04-05] MEDS: ASPIRIN EC 81 MG TABLET PO SCH (09:21)
[2022-04-05] MEDS: CITALOPRAM 20 MG TABLET PO SCH (09:21)
[2022-04-05] MEDS: ISOSORBIDE DINITRATE 20 MG TABLET PO SCH (09:21)
[2022-04-05] MEDS: FLUTICASONE 50 MCG NASAL SPRAY 16 GM BOTTLE BOTH NARES SCH (09:22)
[2022-04-05] MEDS: LACTULOSE 20 GM/30 ML UDCUP PO SCH (09:22)
[2022-04-05 12:03] VITALS: BP 152/106
== END 2022-04-05 12:50 | DRG 469 ==
LOC: N.ED 15:35 → N.EDINP 19:42 → N.5E 22:16
PROVIDERS: ADMIT Internal Medicine; ATTEND Internal Medicine

== ENCOUNTER 2022-11-26 14:41 | Inpatient (IN) ==
[2022-11-26] MEDS ORDERED: SODIUM CHLORIDE 0.9% 1,000 ML IV STA (15:32)
[2022-11-26] MEDS ORDERED: FAMOTIDINE 20 MG/2 ML VIAL IV STA (15:39)
[2022-11-26] MEDS ORDERED: METOPROLOL TARTRATE 5 MG/5 ML VIAL IV STA (15:39)
[2022-11-26] MEDS ORDERED: ONDANSETRON 4 MG/2 ML VIAL ONE (15:39)
[2022-11-26] MEDS ORDERED: ONDANSETRON 4 MG/2 ML VIAL IV STA (15:39)
[2022-11-26 16:02] LABS: Basophils % 0.1 % (0.0-0.8); Hematocrit 37.5 VOL% (42.0-52.0); Hemoglobin 12.3 GM/DL (14.0-18.0); Immature Granulocytes % 0.6 %; Immature Granulocytes Absolute 0.07 #; Lymphocytes % 7.9 % (21.2-54.2); Mean Corpuscular HGB Conc 32.8 GM/DL (32-36); Mean Corpuscular Volume 82.2 FL (87-102); Mean Platelet Volume 11.9 FL (9.6-12.0); Monocytes # 0.6 10*3/uL (0.11-0.8); Neutrophils % 86.4 % (38.7-73.9); Platelet Count 186 T/CUMM (130-400); Red Blood Count 4.56 MC/CUMM (3.8-5.5); Red Cell Distribution Width 13.4 % (9.3-17.3); White Blood Count 12.3 T/CUMM (4-12)
[2022-11-26 16:14] LABS: Bacteria,Urine Occasional /HPF (Few); RBC,Urine 7 /HPF (0-4); Squamous Epithelial Cell,Urine Occasional /HPF (0-10)
[2022-11-26 16:15] LABS: Bilirubin,Urine Negative (Negative); Blood, Urine Moderate mg/dL (Negative); Glucose,Urine (UA) >1000 mg/dL (Negative); Ketones,Urine 80 mg/dL (Negative); Nitrite,Urine Negative (Negative); Protein,Urine >=300 mg/dL (Negative); Urine Appearance Clear (Clear); Urine Color Yellow (Yellow); Urine Specific Gravity 1.015 (1.001-1.035); Urine Urobilinogen 0.2 eU/dL (<2.0); Urine pH 5.5 (4.5-8.0)
[2022-11-26 16:20] LABS: INR 0.9; PT Patient Result 10.2 SECS (10.1-12.1)
[2022-11-26 16:22] LABS: Albumin 3.4 G/DL (3.4-5.0); Calcium 8.8 MG/DL (8.5-10.1); Osmolality,Calculated 296.7 MOS/KG (273-304); Potassium 4.4 MMOL/L (3.5-5.1); Total Protein 8.3 G/DL (6.4-8.2)
[2022-11-26 16:46] LABS: Arterial Base Excess iSTAT -2 MMOL/L (-2.5-2.5); Arterial Bicarbonate iSTAT 22.7 MMOL/L (20-26); Arterial O2 Saturation iSTAT 97 % (95-100); Arterial PCO2 iSTAT 37 MM HG (35-48); Arterial PO2 iSTAT 86 MM HG (80-95); Arterial Total CO2 iSTAT 24 MMO/L (23-27); Arterial pH iSTAT 7.398 (7.35-7.45)
[2022-11-26] MEDS ORDERED: DOCUSATE SODIUM 100 MG CAPSULE PO PRN (17:08)
[2022-11-26] MEDS ORDERED: hydrALAZINE 20 MG/1 ML VIAL IV PRN (17:08)
[2022-11-26] MEDS ORDERED: ONDANSETRON 4 MG/2 ML VIAL IV PRN (17:08)
[2022-11-26] MEDS ORDERED: GLUCAGON 1 MG VIAL IM PRN (17:14)
[2022-11-26] MEDS ORDERED: DEXTROSE 10% 250 ML BAG IV PRN (17:14)
[2022-11-26] MEDS ORDERED: INSULIN REGULAR 100 UNIT/ML IV ONE (17:34)
[2022-11-26] MEDS: SODIUM CHLORIDE 0.9% 1,000 ML IV SCH (17:55)
[2022-11-26] MEDS: INSULIN LISPRO 100 UNIT/ML SUBCUT SCH (18:09)
[2022-11-26 18:34] LABS: Thyroid Stimulating Hormone 1.44 uIU/ml (0.358-3.74)
[2022-11-26] MEDS ORDERED: ASPIRIN 325 MG TABLET PO ONE (20:09)
[2022-11-26] MEDS: MELATONIN 3 MG TABLET PO SCH (21:54)
[2022-11-26] MEDS: ISOSORBIDE DINITRATE 20 MG TABLET PO SCH (21:54)
[2022-11-26] MEDS: FERROUS SULFATE 325 MG TABLET PO SCH (21:54)
[2022-11-26] MEDS: ENOXAPARIN 40 MG/0.4 ML SYRINGE SUBCUT SCH (21:55)
[2022-11-26] MEDS: LACTULOSE 20 GM/30 ML UDCUP PO SCH (22:00)
[2022-11-26] MEDS: PANTOPRAZOLE 40 MG TABLET PO SCH (22:04)
[2022-11-26] MEDS: INSULIN GLARGINE 100 UNIT/ML SUBCUT SCH (22:05)
[2022-11-27] MEDS: INSULIN LISPRO 100 UNIT/ML SUBCUT SCH ×4 (00:08→17:53)
[2022-11-27] MEDS: risperiDONE 0.5 MG TABLET PO SCH ×3 (00:08→21:55)
[2022-11-27] MEDS: SODIUM CHLORIDE 0.9% 1,000 ML IV SCH ×3 (00:30→16:46)
[2022-11-27 01:57] LABS: Basophils % 0.1 % (0.0-0.8); Eosinophils % 0.2 % (0.00-10.9); Hematocrit 30.8 VOL% (42.0-52.0); Hemoglobin 10.1 GM/DL (14.0-18.0); Immature Granulocytes % 0.6 %; Immature Granulocytes Absolute 0.06 #; Lymphocytes # 1.6 10*3/uL (1.4-4.0); Lymphocytes % 15.4 % (21.2-54.2); Mean Corpuscular HGB Conc 32.8 GM/DL (32-36); Mean Corpuscular Volume 82.4 FL (87-102); Mean Platelet Volume 11.5 FL (9.6-12.0); Monocytes % 9.9 % (1.7-12.7); Neutrophils % 73.8 % (38.7-73.9); Platelet Count 155 T/CUMM (130-400); Red Blood Count 3.74 MC/CUMM (3.8-5.5); Red Cell Distribution Width 13.5 % (9.3-17.3); White Blood Count 10.1 T/CUMM (4-12)
[2022-11-27 02:14] LABS: Albumin 2.9 G/DL (3.4-5.0); Bilirubin,Total 0.7 MG/DL (0.20-1.00); Calcium 8.2 MG/DL (8.5-10.1); Osmolality,Calculated 293.2 MOS/KG (273-304); Potassium 4.2 MMOL/L (3.5-5.1); Total Protein 6.8 G/DL (6.4-8.2)
[2022-11-27] MEDS: NEBIVOLOL 10 MG TABLET PO SCH (09:40)
[2022-11-27] MEDS: PANTOPRAZOLE 40 MG TABLET PO SCH ×2 (09:40→21:55)
[2022-11-27] MEDS: LACTULOSE 20 GM/30 ML UDCUP PO SCH ×2 (09:40→21:59)
[2022-11-27] MEDS: ALFUZOSIN 10 MG TABLET PO SCH (09:40)
[2022-11-27] MEDS: ISOSORBIDE DINITRATE 20 MG TABLET PO SCH ×3 (09:40→21:54)
[2022-11-27] MEDS: CITALOPRAM 20 MG TABLET PO SCH (09:40)
[2022-11-27] MEDS: FLUTICASONE 50 MCG NASAL SPRAY 16 GM BOTTLE BOTH NARES SCH (09:40)
[2022-11-27] MEDS: FERROUS SULFATE 325 MG TABLET PO SCH ×2 (09:40→21:55)
[2022-11-27] MEDS: ASPIRIN EC 81 MG TABLET PO SCH (09:40)
[2022-11-27] MEDS ORDERED: METHOCARBAMOL 750 MG TABLET PO PRN (15:08)
[2022-11-27] MEDS ORDERED: HydrOXYzine PAMOATE 25 MG CAPSULE PO PRN (15:28)
[2022-11-27] MEDS: INSULIN GLARGINE 100 UNIT/ML SUBCUT SCH (21:54)
[2022-11-27] MEDS: MELATONIN 3 MG TABLET PO SCH (21:56)
[2022-11-27] MEDS: ENOXAPARIN 40 MG/0.4 ML SYRINGE SUBCUT SCH (21:57)
[2022-11-28] MEDS: INSULIN LISPRO 100 UNIT/ML SUBCUT SCH ×2 (00:28→06:30)
[2022-11-28] MEDS: SODIUM CHLORIDE 0.9% 1,000 ML IV SCH ×2 (01:20→09:27)
[2022-11-28 07:53] LABS: Basophils % 0.4 % (0.0-0.8); Eosinophils # 0.1 10*3/uL (0.0-0.87); Eosinophils % 1.6 % (0.00-10.9); Hematocrit 29.8 VOL% (42.0-52.0); Hemoglobin 9.7 GM/DL (14.0-18.0); Immature Granulocytes % 0.6 %; Immature Granulocytes Absolute 0.03 #; Lymphocytes # 1.1 10*3/uL (1.4-4.0); Lymphocytes % 22.6 % (21.2-54.2); Mean Corpuscular HGB Conc 32.6 GM/DL (32-36); Mean Corpuscular Volume 84.4 FL (87-102); Mean Platelet Volume 11.1 FL (9.6-12.0); Monocytes # 0.6 10*3/uL (0.11-0.8); Monocytes % 12.2 % (1.7-12.7); Neutrophils % 62.6 % (38.7-73.9); Platelet Count 128 T/CUMM (130-400); Red Blood Count 3.53 MC/CUMM (3.8-5.5); Red Cell Distribution Width 13.8 % (9.3-17.3); White Blood Count 4.9 T/CUMM (4-12)
[2022-11-28 08:32] LABS: Albumin 2.6 G/DL (3.4-5.0); Bilirubin,Total 0.5 MG/DL (0.20-1.00); Calcium 7.9 MG/DL (8.5-10.1); Osmolality,Calculated 282.5 MOS/KG (273-304); Potassium 3.9 MMOL/L (3.5-5.1)
[2022-11-28] MEDS: FERROUS SULFATE 325 MG TABLET PO SCH (09:19)
[2022-11-28] MEDS: ALFUZOSIN 10 MG TABLET PO SCH (09:19)
[2022-11-28] MEDS: NEBIVOLOL 10 MG TABLET PO SCH (09:19)
[2022-11-28] MEDS: ISOSORBIDE DINITRATE 20 MG TABLET PO SCH (09:19)
[2022-11-28] MEDS: risperiDONE 0.5 MG TABLET PO SCH (09:19)
[2022-11-28] MEDS: ASPIRIN EC 81 MG TABLET PO SCH (09:20)
[2022-11-28] MEDS: PANTOPRAZOLE 40 MG TABLET PO SCH (09:20)
[2022-11-28] MEDS: LACTULOSE 20 GM/30 ML UDCUP PO SCH (09:20)
[2022-11-28] MEDS: CITALOPRAM 20 MG TABLET PO SCH (09:20)
[2022-11-28] MEDS ORDERED: amLODIPine 10 MG TABLET PO SCH (11:00)
[2022-11-28] MEDS ORDERED: INSULIN LISPRO 100 UNIT/ML SUBCUT SCH (11:30)
[2022-11-28 12:22] VITALS: BP 133/93
[2022-11-28] MEDS: FLUTICASONE 50 MCG NASAL SPRAY 16 GM BOTTLE BOTH NARES SCH (12:56)
== END 2022-11-28 14:09 | disposition home or self-care (01) | DRG 420 ==
LOC: EDUNIT# → N.ED 14:41 → N.EDINP 17:07 → N.2E 23:02
PROVIDERS: ADMIT Hospitalist; ATTEND Hospitalist

== ENCOUNTER 2023-01-19 09:42 | Inpatient (IN) ==
[2023-01-19] MEDS ORDERED: ZIPRASIDONE 20 MG/1 ML VIAL IM ONE ×2 (09:45→17:42)
[2023-01-19] MEDS ORDERED: SODIUM CHLORIDE 0.9% 2,000 ML IV STA (09:53)
[2023-01-19] MEDS ORDERED: ZIPRASIDONE 20 MG/1 ML VIAL IM STA (09:53)
[2023-01-19 10:00] LABS: Basophils % 0.2 % (0.0-0.8); Hematocrit 45.8 VOL% (42.0-52.0); Hemoglobin 14.6 GM/DL (14.0-18.0); Immature Granulocytes % 0.5 %; Immature Granulocytes Absolute 0.07 #; Lymphocytes # 1.1 10*3/uL (1.4-4.0); Lymphocytes % 8.9 % (21.2-54.2); Mean Corpuscular HGB Conc 31.9 GM/DL (32-36); Mean Corpuscular Volume 84.2 FL (87-102); Mean Platelet Volume 12.3 FL (9.6-12.0); Monocytes # 0.2 10*3/uL (0.11-0.8); Monocytes % 1.7 % (1.7-12.7); Neutrophils % 88.7 % (38.7-73.9); Platelet Count 221 T/CUMM (130-400); Red Blood Count 5.44 MC/CUMM (3.8-5.5); Red Cell Distribution Width 13.2 % (9.3-17.3); White Blood Count 12.76 T/CUMM (4-12)
[2023-01-19 10:17] LABS: Albumin 3.2 G/DL (3.4-5.0); Bilirubin,Total 0.9 MG/DL (0.20-1.00); Calcium 9.4 MG/DL (8.5-10.1); Osmolality,Calculated 311.5 MOS/KG (273-304); Potassium 4.5 MMOL/L (3.5-5.1); Total Protein 8.3 G/DL (6.4-8.2)
[2023-01-19 10:30] LABS: Bacteria,Urine Occasional /HPF (Few); Bilirubin,Urine Negative (Negative); Blood, Urine Moderate mg/dL (Negative); Glucose,Urine (UA) 500 mg/dL (Negative); Ketones,Urine 80 mg/dL (Negative); Nitrite,Urine Negative (Negative); Protein,Urine >=300 mg/dL (Negative); RBC,Urine 6 /HPF (0-4); Squamous Epithelial Cell,Urine Occasional /HPF (0-10); Urine Appearance Clear (Clear); Urine Color Yellow (Yellow); Urine Specific Gravity 1.015 (1.001-1.035); Urine Urobilinogen 0.2 eU/dL (<2.0); Urine pH 5.5 (4.5-8.0)
[2023-01-19] MEDS ORDERED: INSULIN REGULAR 100 UNIT/ML IV ONE (10:42)
[2023-01-19 10:47] LABS: Barbiturates Screen,Urine Negative (Negative); Benzodiazepines Screen,Urine Negative (Negative); Cannabinoid Screen,Urine Negative (Negative); Opiate Screen,Urine Negative (Negative); Phencyclidine Screen,Urine Negative (Negative)
[2023-01-19] MEDS ORDERED: DEXTROSE 10% 250 ML BAG IV PRN ×2 (11:02)
[2023-01-19] MEDS ORDERED: INSULIN REGULAR DRIP 100 ML IV SCH (11:30)
[2023-01-19 11:55] LABS: Arterial Base Excess iSTAT -6 MMOL/L (-2.5-2.5); Arterial Bicarbonate iSTAT 16.8 MMOL/L (20-26); Arterial O2 Saturation iSTAT 95 % (95-100); Arterial PCO2 iSTAT 27 MM HG (35-48); Arterial PO2 iSTAT 75 MM HG (80-95); Arterial Total CO2 iSTAT 18 MMO/L (23-27); Arterial pH iSTAT 7.402 (7.35-7.45)
[2023-01-19] MEDS ORDERED: cefTRIAXone 1,000 MG in SODIUM CHLORIDE 0.9% 100 ML IV STA (12:10)
[2023-01-19] MEDS ORDERED: ACETAMINOPHEN 120 MG SUPP RECTAL ONE (12:21)
[2023-01-19] MEDS ORDERED: ACETAMINOPHEN 500 MG TABLET ONE (12:25)
[2023-01-19 12:42] LABS: Potassium 4.2 MMOL/L (3.5-5.1)
[2023-01-19] MEDS ORDERED: SODIUM CHLORIDE 0.9% 1,000 ML IV ONE (12:53)
[2023-01-19] MEDS ORDERED: GLUCAGON 1 MG VIAL IM PRN (12:57)
[2023-01-19] MEDS ORDERED: ALBUTEROL 2.5 MG/3 ML NEB RESP TX PRN (12:57)
[2023-01-19] MEDS ORDERED: ONDANSETRON 4 MG/2 ML VIAL IV PRN (12:57)
[2023-01-19] MEDS ORDERED: INSULIN GLARGINE 100 UNIT/ML SUBCUT ONE (13:00)
[2023-01-19] MEDS: LACTATED RINGERS 1,000 ML IV SCH ×2 (13:50→19:20)
[2023-01-19] MEDS: niCARdipine INJ 25 MG in SODIUM CHLORIDE 0.9% 240 ML IV PRN (13:50)
[2023-01-19] MEDS: INSULIN LISPRO 100 UNIT/ML SUBCUT SCH ×7 (13:57→23:12)
[2023-01-19] MEDS ORDERED: cloNIDine 0.3 MG/24 HR PATCH TRANSDERM SCH (14:00)
[2023-01-19] MEDS ORDERED: ACETAMINOPHEN 650 MG SUPP RECTAL PRN (15:09)
[2023-01-19 15:34] LABS: Calcium 8.6 MG/DL (8.5-10.1); Osmolality,Calculated 309.7 MOS/KG (273-304); Potassium 4.1 MMOL/L (3.5-5.1)
[2023-01-19] MEDS: DIAZEPAM 10 MG/2 ML SYRINGE IM PRN ×2 (15:46→22:06)
[2023-01-19] MEDS ORDERED: LORazepam 2 MG/1 ML VIAL IV ONE (17:43)
[2023-01-19 19:38] LABS: Calcium 8.9 MG/DL (8.5-10.1); Potassium 3.7 MMOL/L (3.5-5.1)
[2023-01-19] MEDS: HALOPERIDOL 5 MG/ML AMP IM PRN (20:02)
[2023-01-19] MEDS: ACYCLOVIR INJ 700 MG in SODIUM CHLORIDE 0.9% 100 ML IV SCH (20:30)
[2023-01-19] MEDS: ENOXAPARIN 30 MG/0.3 ML SYRINGE SUBCUT SCH (20:30)
[2023-01-19] MEDS ORDERED: PANTOPRAZOLE 40 MG VIAL IV SCH (21:00)
[2023-01-19] MEDS ORDERED: cefTRIAXone 2,000 MG in SODIUM CHLORIDE 0.9% 100 ML IV SCH (21:00)
[2023-01-19 23:09] LABS: Calcium 8.9 MG/DL (8.5-10.1); Osmolality,Calculated 302.7 MOS/KG (273-304); Potassium 3.4 MMOL/L (3.5-5.1)
[2023-01-20] MEDS: HALOPERIDOL 5 MG/ML AMP IM PRN ×2 (00:42→05:27)
[2023-01-20] MEDS: INSULIN LISPRO 100 UNIT/ML SUBCUT SCH ×6 (01:15→20:18)
[2023-01-20] MEDS: niCARdipine INJ 25 MG in SODIUM CHLORIDE 0.9% 240 ML IV PRN ×2 (02:10→09:03)
[2023-01-20] MEDS: LACTATED RINGERS 1,000 ML IV SCH ×2 (02:11→09:05)
[2023-01-20] MEDS: DIAZEPAM 10 MG/2 ML SYRINGE IM PRN (02:53)
[2023-01-20 03:37] LABS: Calcium 8.3 MG/DL (8.5-10.1); Potassium 3.6 MMOL/L (3.5-5.1)
[2023-01-20] MEDS ORDERED: SODIUM CHLORIDE 0.45% 1,000 ML IV SCH (04:30)
[2023-01-20] MEDS: INSULIN GLARGINE 100 UNIT/ML SUBCUT SCH (09:02)
[2023-01-20] MEDS: PANTOPRAZOLE 40 MG TABLET PO SCH (09:03)
[2023-01-20] MEDS: ACYCLOVIR INJ 700 MG in SODIUM CHLORIDE 0.9% 100 ML IV SCH ×2 (09:03→20:18)
[2023-01-20 09:26] LABS: Calcium 8.5 MG/DL (8.5-10.1); Osmolality,Calculated 299.4 MOS/KG (273-304); Potassium 3.4 MMOL/L (3.5-5.1)
[2023-01-20] MEDS: cefTRIAXone 2,000 MG in SODIUM CHLORIDE 0.9% 100 ML IV SCH (15:00)
[2023-01-20] MEDS: ENOXAPARIN 30 MG/0.3 ML SYRINGE SUBCUT SCH (20:18)
[2023-01-21 06:25] LABS: Basophils % 0.2 % (0.0-0.8); Eosinophils % 0.5 % (0.00-10.9); Hematocrit 33.4 VOL% (42.0-52.0); Hemoglobin 10.7 GM/DL (14.0-18.0); Immature Granulocytes % 0.4 %; Immature Granulocytes Absolute 0.03 #; Lymphocytes # 1.4 10*3/uL (1.4-4.0); Lymphocytes % 16.8 % (21.2-54.2); Mean Corpuscular Volume 84.8 FL (87-102); Mean Platelet Volume 11.8 FL (9.6-12.0); Monocytes # 0.5 10*3/uL (0.11-0.8); Monocytes % 5.5 % (1.7-12.7); Neutrophils % 76.6 % (38.7-73.9); Platelet Count 141 T/CUMM (130-400); Red Blood Count 3.94 MC/CUMM (3.8-5.5); Red Cell Distribution Width 13.6 % (9.3-17.3); White Blood Count 8.11 T/CUMM (4-12)
[2023-01-21 06:35] LABS: Calcium 7.8 MG/DL (8.5-10.1); Osmolality,Calculated 287.1 MOS/KG (273-304); Potassium 3.4 MMOL/L (3.5-5.1)
[2023-01-21] MEDS: INSULIN LISPRO 100 UNIT/ML SUBCUT SCH ×4 (07:51→21:54)
[2023-01-21] MEDS: ACYCLOVIR INJ 700 MG in SODIUM CHLORIDE 0.9% 100 ML IV SCH ×2 (08:26→21:54)
[2023-01-21] MEDS: INSULIN GLARGINE 100 UNIT/ML SUBCUT SCH (08:26)
[2023-01-21] MEDS: PANTOPRAZOLE 40 MG TABLET PO SCH (08:26)
[2023-01-21] MEDS ORDERED: ALUMINUM/MAGNES/SIMETH MAX STR 30 ML UDCUP PO PRN (10:05)
[2023-01-21] MEDS ORDERED: ACETAMINOPHEN 325 MG TABLET PO PRN (10:05)
[2023-01-21] MEDS: CITALOPRAM 20 MG TABLET PO SCH (11:11)
[2023-01-21] MEDS: ALFUZOSIN 10 MG TABLET PO SCH (11:11)
[2023-01-21] MEDS: NEBIVOLOL 10 MG TABLET PO SCH (11:11)
[2023-01-21] MEDS ORDERED: hydrALAZINE 20 MG/1 ML VIAL IV PRN (12:10)
[2023-01-21] MEDS: cefTRIAXone 2,000 MG in SODIUM CHLORIDE 0.9% 100 ML IV SCH (15:18)
[2023-01-21] MEDS: ISOSORBIDE DINITRATE 20 MG TABLET PO SCH ×2 (16:29→21:52)
[2023-01-21] MEDS: FERROUS SULFATE 325 MG TABLET PO SCH (21:52)
[2023-01-21] MEDS: glipiZIDE 5 MG TABLET PO SCH (21:53)
[2023-01-21] MEDS: risperiDONE 0.5 MG TABLET PO SCH (21:53)
[2023-01-21] MEDS: ENOXAPARIN 30 MG/0.3 ML SYRINGE SUBCUT SCH (21:54)
[2023-01-21] MEDS: LACTULOSE 20 GM/30 ML UDCUP PO SCH (21:54)
[2023-01-22 05:39] LABS: Basophils % 0.2 % (0.0-0.8); Eosinophils # 0.1 10*3/uL (0.0-0.87); Hematocrit 30.3 VOL% (42.0-52.0); Hemoglobin 9.6 GM/DL (14.0-18.0); Immature Granulocytes % 0.2 %; Immature Granulocytes Absolute 0.01 #; Lymphocytes # 1.2 10*3/uL (1.4-4.0); Lymphocytes % 26.6 % (21.2-54.2); Mean Corpuscular HGB Conc 31.7 GM/DL (32-36); Mean Corpuscular Volume 86.1 FL (87-102); Mean Platelet Volume 12.2 FL (9.6-12.0); Monocytes # 0.4 10*3/uL (0.11-0.8); Monocytes % 9.2 % (1.7-12.7); Neutrophils % 61.8 % (38.7-73.9); Platelet Count 134 T/CUMM (130-400); Red Blood Count 3.52 MC/CUMM (3.8-5.5); Red Cell Distribution Width 13.7 % (9.3-17.3); White Blood Count 4.58 T/CUMM (4-12)
[2023-01-22 05:51] LABS: Calcium 7.7 MG/DL (8.5-10.1); Osmolality,Calculated 288.8 MOS/KG (273-304); Potassium 3.2 MMOL/L (3.5-5.1)
[2023-01-22] MEDS: INSULIN LISPRO 100 UNIT/ML SUBCUT SCH ×2 (07:19→14:01)
[2023-01-22] MEDS: PANTOPRAZOLE 40 MG TABLET PO SCH (08:15)
[2023-01-22] MEDS: ALFUZOSIN 10 MG TABLET PO SCH (08:15)
[2023-01-22] MEDS: risperiDONE 0.5 MG TABLET PO SCH (08:15)
[2023-01-22] MEDS: NEBIVOLOL 10 MG TABLET PO SCH (08:15)
[2023-01-22] MEDS: ISOSORBIDE DINITRATE 20 MG TABLET PO SCH (08:15)
[2023-01-22] MEDS: glipiZIDE 5 MG TABLET PO SCH (08:15)
[2023-01-22] MEDS: FERROUS SULFATE 325 MG TABLET PO SCH (08:15)
[2023-01-22] MEDS: ACYCLOVIR INJ 700 MG in SODIUM CHLORIDE 0.9% 100 ML IV SCH (08:16)
[2023-01-22] MEDS: CITALOPRAM 20 MG TABLET PO SCH (08:16)
[2023-01-22] MEDS: LACTULOSE 20 GM/30 ML UDCUP PO SCH (08:16)
[2023-01-22] MEDS ORDERED: ASPIRIN EC 81 MG TABLET PO SCH (09:00)
[2023-01-22] MEDS: INSULIN GLARGINE 100 UNIT/ML SUBCUT SCH (09:53)
[2023-01-22 12:32] VITALS: BP 131/72
== END 2023-01-22 13:39 | disposition home health service (06) | DRG 194 ==
LOC: N.ED 09:42 → N.EDINP 12:57 → SUATTDRO 12:57 → N.ICU 13:37 → N.2E 01-21 12:20
PROVIDERS: ADMIT Internal Medicine; ATTEND Internal Medicine